=== PATIENT | male | born 1965 | race Caucasian/White ===

== ENCOUNTER → 2023-01-27 10:00 | Outpatient (BNVA) | payer MEDICAID, SELFPAY | PROVIDERS: Family Provider Nurse Practitioner Family; PCP Nurse Practitioner Family; Referring Provider Nurse Practitioner Family; Visit Provider Orthopaedic Surgery | DX: M48.061 Spinal stenosis, lumbar region without neurogenic claudication (principal); M47.814 Spondylosis without myelopathy or radiculopathy, thoracic region | CPT/HCPCS: 72070; 72110 ==

== ENCOUNTER 2023-02-24 11:01 | Outpatient (CLI) | payer MEDICAID, SELFPAY ==
--- NOTE | 2023-02-24 | ECG_ITS ---
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 Interpretive Statements NAME OF STUDY: TREADMILL STRESS TEST INDICATION: [bradycardia/exertional sob, ] EXERCISE DATA: The patient was exercised by Yohan protocol. Baseline heart rate was 72 beats per minute. Baseline blood pressure was 108/81 millimeters of mercury. Target heart rate was 140 beats per minute. Maximum heart rate achieved was 137 which was 97% of the target heart rate. Maximum blood pressure was 193/92 millimeters of mercury. Total exercise time was 7 minutes. Maximum METs achieved was 10.2 . The reason for ending the test was maximal effort was achieved. The patient complained of shortness of breath during the stress test, which then resolved at the end of the test. ELECTROCARDIOGRAM: BASELINE: Showed sinus rhythm, normal axis, no significant ST-T changes at the baseline noted. [] EXERCISE: At the peak exercise level, [] No significant ST-T changes suggestive of ischemia noted. [] RECOVERY: During the recovery period, heart rate dropped appropriately. No significant ST-T changes in the recovery suggestive of ischemia noted. [] CONCLUSION: 1. Exercise capacity was good. 2. Heart rate response was suboptimal 3. Blood pressure response was appropriate. 4. Symptoms not suggestive of ischemia. 5. Stress test did not show evidence of ischemia however patient did not reach target heart rate that decreases sensitivity of the study. Electronically Signed On 03-08-2023 15:40:25 CDT by Huseyin Richey M.D. [id number]
[2023-02-24 11:14] VITALS: BMI 30.2
[2023-02-24 11:41] VITALS: BP 126/86; PULSE 90
== END 2023-02-24 11:02 | disposition home or self-care (01) ==
LOC: CDL 11:05
PROVIDERS: PCP Nurse Practitioner Family; Visit Provider Nurse Practitioner Family
DX: R06.02 Shortness of breath (principal)
CPT/HCPCS: 93017

== ENCOUNTER 2023-04-17 13:27 | Emergency (ER) | payer MEDICAID, SELFPAY ==
[2023-04-17 13:57] VITALS: BP 141/90; PULSE 86; RESP 14; TEMP 37.2; O2SAT 95; BMI 29.5
--- NOTE | 2023-04-17 15:34 | ED_ITS ---
HPI - Extremity Problem General: Chief complaint: Extremity Problem,Nontraumatic Stated complaint: right leg pain Time Seen by Provider: 04/17/23 15:14 Source: patient Mode of arrival: ambulatory Limitations: no limitations History of Present Illness: Patient is a nice 58-year-old male who presents to ED today with a complaint of right hip pain. He states pain seemed to begin around the same time that he started a home physical therapy regimen recommended by Dr. Ervin for treatment of his chronic lower back pain. He states since then the pain has progressively worsened. He states when seated he has very little pain and is able to flex his hip without discomfort. He states his pain is mainly with ambulation and feels like something will catch in the joint itself. He admittedly walks with an ataxic gait because of this. He does feel like pain radiates into the thigh but not below the knee. Has not noticed any color or temperature changes to the extremity. No fevers. He denies numbness, tingling, loss of sensation. MD Complaint: joint pain Onset (ago): week(s) Pain Consistency: constant Location: right and lower extremity (hip) Radiation: distal Relieving factors: immobilization Exacerbating factors: weight bearing and walking Associated symptoms: Reports no associated symptoms; Deny fever(s) or rash Review of Systems Const: Denies: fever(s), chills, body aches, fatigue or malaise Musc: Reports: back pain (chronic) and joint pain (R hip); Denies: neck pain, extremity pain, extremity swelling, joint swelling, joint redness, joint warmth or limited range of motion Skin/Breast: Denies: rash Neuro: Reports: difficulty walking (secondary to R hip pain); Denies: numbness in extremities, weakness in extremities or sensory changes [facility] ED PFSH: Medical History Asthma No pertinent past medical history Surgical History No pertinent past surgical history Family History Father CAD (coronary artery disease), Onset Age: 60 Cancer, Onset Age: 60 prostate Diabetes Lung disease asthma Mother Diabetes Hypertension Lung disease Stroke Denies family history of Chronic kidney disease (CKD) Social History Smoking and tobacco status: former smoker Quit status (tobacco): has quit using tobacco Year quit tobacco: 2006 Alcohol intake: never Substance/Drug Use: never Adopted: No Caregiver/support person: No Lives independently: No Household members: spouse Marital status: service: No Current occupational status: employed Sexually active: Yes Do you think of yourself as: Straight/Heterosexual Current gender identity: Male Physical Exam Const: COMMON NORMALS: no acute distress, average body habitus, patient oriented x3, no limitations, healthy appearing, alert and well nourished Back/Pelvis: COMMON NORMALS: thoracic and lumbar spine normal to inspection, no thoracic nor lumbar tenderness and thoraco-lumbar ROM normal THORACIC SPINE/UPPER BACK: No thoracic spinal tenderness LUMBAR SPINE/LOWER BACK: No lumbar spinal tenderness, No paraspinal muscle tenderness, No paraspinal muscle spasm and Yes straight leg raise negative bilaterally PELVIS: No sciatic notch tenderness SACROILIAC JOINTS: Yes SI joints normal SACRUM: no tenderness COCCYX: no tenderness Extremity: COMMON NORMALS: normal to inspection, full ROM, capillary refill normal, no joint enlargement, no clubbing, cyanosis or edema, no calf tenderness and no pedal edema GENERAL: Yes normal exam except as noted RIGHT LOWER EXTREMITY: Yes hip joint Right hip: Yes palpation (TTP posteriolateral R hip), Yes ROM (normal), Yes neurovascular exam (normal) and Yes special tests Right hip special tests: Trendelenburg test: Positive Neuro: COMMON NORMALS: patient oriented x3, moves all extremities, no focal m otor deficits and no sensory deficits noted SENSORIUM/ORIENTATION: Yes alert Skin: COMMON NORMALS: no rashes or lesions noted GENERAL SKIN EXAM: no rashes or lesions noted Course Vital Signs: Vital signs: Vital Signs Temperature 98.9 F 04/17/23 13:57 Pulse Rate 86 04/17/23 13:57 Respiratory Rate 14 04/17/23 13:57 Blood Pressure 141/90 04/17/23 13:57 Pulse Oximetry 95 04/17/23 13:57 Oxygen Delivery Me thod Room Air 04/17/23 13:57 MDM - Extremity (Nontraumatic) Medical Decision Making Patient is a 58-year-old male here for right hip pain over the past 6 weeks. He felt like pain began following a home physical therapy regimen recommended for his chronic lower back pain. Patient's pain seems to be only present with walking/ambulation. He has full range of motion of the hip joint while seated/lying flat. XR personal interpretation is negative. Patient requesting follow-up with orthopedics which I think is appropriate. We will place him on anti-inflammatories, muscle relaxers, steroids to see if this gains him any relief. Discharge Plan Discharge Patient Disposition: Home Clinical Impression: Acute pain of right hip Condition: Stable Prescriptions: New methocarbamol 500 mg tablet 1,000 mg PO Q8H Qty: 30 0RF ibuprofen 800 mg tablet 800 mg PO Q8H PRN (Reason: pain) Qty: 20 0RF Medrol (Ector) 4 mg tablets,dose pack See Rx Instructions .ROUTE .COMPLEX Qty: 21 0RF Rx Instructions: orally per package directions No Action levalbuterol tartrate [Xopenex HFA] 45 mcg/actuation HFA aerosol inhaler 2 inh inhalation Q6H PRN (Reason: shortness of breath or wheezing) Qty: 15 11RF fluticasone propion-salmeterol [Advair Diskus] 100-50 mcg/dose blister with device 1 inh inhalation BID Qty: 60 11RF doxycycline hyclate 150 mg tablet 150 mg PO BID Discharge Orders: Discharge ED (Routine); Ordered 04/17/23 Ordered By: Patricia Guy Referrals: Dorian Saavge FNP [Primary Care Provider] - Patient Instructions: Hip Bursitis (ED), Hip Pain (ED) Coding Level of Care Code ED 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
--- NOTE | 2023-04-17 15:49 | XRR_ITS ---
PROCEDURE INFORMATION: Exam: XR Right Hip Exam date and time: 04/17/2023 4:09 PM Age: 58 years old Clinical indication: Patient HX: Right hip pain. He states pain seemed to begin around the same time that he started a home physical therapy regimen. Limping; Additional info: Pain/limp; One view pelvis too please TECHNIQUE: Imaging protocol: Radiologic exam of the right hip. Views: 1 view hip with pelvis when performed. Total images: 805 COMPARISON: CR XR lumbar spine min 4V [id number] 01/27/2023 10:02 AM FINDINGS: Bones/joints: No acute fracture nor subluxation. No osseous erosion nor periosteal reaction. Soft tissues: Unremarkable. Vasculature: Incidental venous phlebolith noted. XR/XR hip RT 2-3V wo/w pel* [id number] IMPRESSION: No acute osseous pathology.
[2023-04-17] MEDS: dexamethasone 10 mg/mL INJ 8 MG IM (17:03)
[2023-04-17] MEDS: ketorolac 60 mg/2 mL INJ IM (17:03)
--- NOTE | 2023-04-19 05:11 | DCPLANNER ---
Addendum entered by Mariana Mcgowan 04/27/23 10:12: Patient had a follow up appointment scheduled with ortho - patient did attend appointment. Original Note: corporate communications manager had message to schedule a follow up appointment for patient with ortho. corporate communications manager sent patients information to the front office staff at ortho. Patients information will be printed and reviewed. Clinic will call patient with appointment information.
== END 2023-04-17 17:08 | disposition home or self-care (01) ==
PROVIDERS: Emergency Provider Physician Assistant; PCP Nurse Practitioner Family
DX: M25.551 Pain in right hip (principal); Z87.891 Personal history of nicotine dependence
CPT/HCPCS: 73502; 96372; 99284; J1100; J1885

== ENCOUNTER 2023-04-23 18:18 | Inpatient (IN) | payer MEDICAID, SELFPAY ==
[2023-04-23] VITALS (23 sets, daily range): BP systolic 69–162; BP diastolic 45–113; PULSE 87–121; RESP 14–31; TEMP 36.6–37.4; O2SAT 75–98; BMI 29.5; BMI 34.1
--- NOTE | 2023-04-23 18:26 | XRR_ITS ---
PROCEDURE INFORMATION: Exam: XR Chest Exam date and time: 04/23/2023 6:30 PM Age: 58 years old Clinical indication: Cough TECHNIQUE: Imaging protocol: Radiologic exam of the chest. Views: 1 view. COMPARISON: CR XR thoracic spine 2V [id number] 01/27/2023 10:02 AM FINDINGS: Lungs: Subtle bibasilar opacities. Pleural spaces: Unremarkable. No pleural effusion. No pneumothorax. Heart/Mediastinum: Unremarkable. No cardiomegaly. Bones/joints: Unremarkable. XR/XR chest 1V portable [id number] IMPRESSION: Subtle bibasilar opacities suggestive of multifocal pneumonia.
--- NOTE | 2023-04-23 18:37 | W.ED.SYNCOPE ---
HPI - Syncope General: Chief Complaint: Syncope Stated Complaint: fever, chest congestion Time Seen by Provider: 04/23/23 18:27 Source: patient Mode of arrival: ambulatory Limitations: no limitations History of Present Illness: 58-year-old male states he been having cough congestion feels like he is got pain in his right lung. He states been having increasing shortness of breath and weakness he had a syncopal event at the waiting room he was hypotensive here. Denies any vomiting denies any headache. Denies any worsening proving factors. Associated symptoms: Reports fever(s); Deny abdominal pain, chest pain, headache(s) or nausea Review of Systems Const: Reports: fever(s), chills and body aches; Denies: change in appetite ENMT: Denies: throat pain or dental pain Card: Denies: chest pain Resp: Reports: dyspnea and productive cough GI: Denies: abdominal pain, nausea, vomiting or diarrhea : Denies: dysuria Musc: Denies: neck pain or back pain Skin/Breast: Denies: rash Neuro: Denies: headache(s) PFSH ED PFSH: Medical History Asthma No pertinent past medical history Surgical History No pertinent past surgical history Family History Father CAD (coronary artery disease), Onset Age: 60 Cancer, Onset Age: 60 prostate Diabetes Lung disease asthma Mother Diabetes Hypertension Lung disease Stroke Denies family history of Chronic kidney disease (CKD) Social History Smoking and tobacco status: former smoker Quit status (tobacco): has quit using tobacco Year quit tobacco: 2006 Alcohol intake: never Substance/Drug Use: never Adopted: No Caregiver/support person: No Lives independently: No Household members: spouse Marital status: service: No Current occupational status: employed Sexually active: Yes Do you think of yourself as: Straight/Heterosexual Current gender identity: Male Physical Exam Const: COMMON NORMALS: patient oriented x3 GENERAL APPEARANCE: ill appearing HENMT: COMMON NORMALS: normocephalic and atraumatic HEAD & SCALP: normocephalic and atraumatic Eye: COMMON NORMALS: Equal, round and reactive pupils present and EOMs intact bilaterally PUPIL: Yes Equal, round and reactive pupils present Neck/C-Spine: COMMON NORMALS: full ROM and supple Chest: COMMONS NORMALS: normal inspection of the chest and normal palpation of entire chest wall Resp: COMMON NORMALS: No retractions and No use of accessory muscles EFFORT & INSPECTION: Yes respiratory distress AUSCULTATION: rales Cardio: COMMON NORMALS: regular rhythm and No murmurs present (Cardio) RATE: tachycardic RHYTHM: regular rhythm GI: COMMON NORMALS: Normal to inspection, nondistended, normoactive bowel sounds present, Soft to palpation, non-tender and no masses PALPATION: Yes Soft to palpation Extremity: COMMON NORMALS: normal to inspection and full ROM Neuro: COMMON NORMALS: patient oriented x3, moves all extremities and no focal motor deficits Psych: COMMON NORMALS: mental status grossly normal, Normal thought process present and cooperative THOUGHT PROCESS: Normal thought process present Skin: COMMON NORMALS: no rashes or lesions noted and no wounds GENERAL SKIN EXAM: no rashes or lesions noted Procedures Central Line Placement Right IJ: Time Out Performed: Yes Patient Placed on Monitor/Pulse Ox: Yes MD Prep: mask, gown and gloves Central Line Prep: Chlorhexidine scrub Local Anesthetic: lidocaine 1% Amount of anesthesia used (mL): 3 Ultrasound Used for Placement: Yes Central Line Lumen Inserted: triple Post Procedure: sutured in place, good blood return and all ports aspirated, flushed, capped Post Procedure X-Ray: tip of catheter in good position and no pneumothorax seen Patient Tolerated Procedure: well Complications: none Intubation Time out performed: Yes sedative: Etomidate Mg Given: 2 paralytic: Succinylcholine Mg Given: 130 Laryngoscope: Agata ET Tube Size: 8 ET Tube Uncuffed: No Tube Secured Depth (cm): 26 Tube Secured Location: teeth Tube Placement Confirmation: visualized tube passing through cords, no breath sounds over epigastrium and confirmation by capnometry Patient Tolerated Procedure: well Course Vital Signs: Vital signs: Vital Signs Temperature 99.4 F 04/23/23 18:28 Pulse Rate 119 H 04/23/23 20:12 Respiratory Rate 18 04/23/23 21:45 Blood Pressure 78/56 04/23/23 18:28 Pulse Oximetry 96 04/23/23 21:45 Oxygen Delivery Me thod Nasal Cannula 04/23/23 20:03 Oxygen Flow Rate 2 04/23/23 20:03 Fraction of Inspir ed Oxygen 100 04/23/23 21:45 MDM - Syncope Medical Decision Making Patient presents here with pneumonia with sepsis. Patient when starting central line placement he did get more hypotensive unresponsive patient was on Levophed he is given push dose epinephrine was not really tolerating the BiPAP so was then intubated. After his intubation central line was placed he is currently on Levophed his blood pressure is now in the 130s. He has been given IV antibiotics and his sepsis fluid bolus. Spoke to the hospitalist and will admit at this time. Medical Records I reviewed the patient's medical records. Lab Data I reviewed the patient's lab results. 04/23/23 18:34 04/23/23 18:34 Radiology Impressions Chest X-Ray 04/23/23 19:36 IMPRESSION: More conspicuous bibasilar opacities/pneumonia. Laboratory Results WBC 8.2 10^3/uL (4.0-10.0) 04/23/23 18:34 RBC 5.04 10^6/uL (4.1-5.3) 04/23/23 18:34 Hgb 15.7 g/dL (11.7-16.6) 04/23/23 18:34 Hct 45.6 % (42.0-52.0) 04/23/23 18:34 MCV 90.5 fl (80-94) 04/23/23 18:34 MCH 31.2 pg (28.0-34.0) 04/23/23 18:34 MCHC 34.4 g/dL (30.0-36.0) 04/23/23 18:34 RDW 13.2 % (12.1-15.1) 04/23/23 18:34 Plt Count 273 10^3/cmm (130-400) 04/23/23 18:34 MPV 8.7 fL (7.4-10.4) 04/23/23 18:34 Neut % (Auto) 78.4 % 04/23/23 18:34 Lymph % (Auto) 15.6 % 04/23/23 18:34 [place] % (Auto) 5.4 % 04/23/23 18:34 Eos % (Auto) 0.0 % 04/23/23 18:34 Baso % (Auto) 0.2 % 04/23/23 18:34 Neut # (Auto) 6.45 10^3/uL (1.8-7.7) 04/23/23 18:34 Lymph # (Auto) 1.3 10^3/uL (0.8-4.8) 04/23/23 18:34 [place] # (Auto) 0.4 10^3/uL (0.2-0.9) 04/23/23 18:34 Eos # (Auto) 0.0 10^3/uL (0.0-0.8) 04/23/23 18:34 Baso # (Auto) 0.0 10^3/uL (0.0-0.1) 04/23/23 18:34 Nucleated RBC % (auto) 0 % 04/23/23 18: Nucleated RBCs # 0.0 /100WBC 04/23/23 18:34 PT 14.20 SECONDS (12.1-14.9) 04/23/23 18:34 INR 1.06 (0.8-1.2) 04/23/23 18:34 Sodium 139 mmol/L (136-145) 04/23/23 18:34 Potassium 4.3 mmol/L (3.5-5.1) 04/23/23 18:34 Chloride 98 mmol/L (98-107) 04/23/23 18:34 Carbon Dioxide 27 mmol/L (22-29) 04/23/23 18:34 Anion Gap 18.3 (5-19) 04/23/23 18:34 BUN 22 mg/dL (6-20) H 04/23/23 18:34 Creatinine 1.4 mg/dL (0.7-1.2) H 04/23/23 18:34 GFR Calculation 52.4 mL/min (90-130) L 04/23/23 18:34 Glucose 123 mg/dL (65-115) H 04/23/23 18:34 Calculated Osmolality 293 mOsm/kg (285-295) 04/23/23 18:34 Lactic Acid 3.9 mmol/L (0.5-2.2) H 04/23/23 18:48 Calcium 8.7 mg/dL (8.5-10.5) 04/23/23 18:34 Total Bilirubin 1.1 mg/dL (0.15-1.2) 04/23/23 18:34 AST 27 U/L (0-40) 04/23/23 18:34 ALT 62 U/L (0-41) H 04/23/23 18:34 Alkaline Phosphatase 65 U/L (40-130) 04/23/23 18:34 Troponin T Baseline 12 ng/L (0-15) 04/23/23 18:34 Troponin T 120 Minute 12.37 ng/L (0-15) 04/23/23 20:37 Delta Troponin T 0.37 ABS# (0-10) 04/23/23 20:37 NT-Pro-B Natriuret Pep 481 pg/mL (0-125) H 04/23/23 18:34 Total Protein 6.8 g/dL (6.6-8.7) 04/23/23 18:34 Albumin 4.0 g/dL (3.5-5.2) 04/23/23 18:34 Globulin 2.8 g/dL (1.3-4.6) 04/23/23 18:34 SARS-CoV-2 Ag (Rapid) negative (Negative) 04/23/23 18:37 EKG Data EKG 1: I personally reviewed and interpreted this EKG as follows: EKG interpretation date: 04/23/23 EKG interpretation time: 18:43 Interpretation: nsr hr [address] or t wave abnormalities qrs 91 qtc 360 Critical Care Time Critical Care Time: Critical Care Time: Yes Total Critical Care Time: 55 Attestation: The high probability of a clinically significant, sudden or life threatening deterioration of the patient's resp system(s) required my full and direct attention, intervention and personal management. The critical care time is as shown. This time is in addition to time spent performing any reported procedures but includes the following: [x] Data and vital sign review and interpretation [x] Patient assessment, examination and intervention [x] Documentation [x] Medication orders and management Discharge Plan Discharge Patient Disposition: Admitted As Inpatient Admit Provider: Haley Brooke Clinical Impression: Pneumonia, Sepsis, Acute respiratory failure with hypoxia Condition: Stable Coding Level of Care Code ED Employee Relations Specialist for Chg Yogesh
[2023-04-23] MEDS: sodium chloride 0.9% 1,000 ML 999 ML IV ×2 (18:41→18:44)
--- NOTE | 2023-04-23 18:43 | ECG_ITS ---
[facility] Test Date: 2023-04-23 Pat Name: Vic Lebron Department: Room: Gender: Male Rn Medical Surgical: : 1965 Requested By: Kwesi Kaur Order Number: [id number] Bullard MD: Betty Babb M.D. Measurements Intervals [place] Rate: 98 P: 59 IA: 124 QRS: 28 QRSD: 91 T: 24 QT: 305 QTc: 390 Interpretive Statements SINUS RHYTHM NONSPECIFIC T-WAVE ABNORMALITY No previous ECG available for comparison Electronically Signed On 04-23-2023 20:35:30 CDT by Betty Babb M.D. [id number]
[2023-04-23 18:44] LABS: Basophils % 0.2 %; Hematocrit 45.6 % (42.0-52.0); Hemoglobin 15.7 g/dL (11.7-16.6); Lymphocytes # 1.3 10^3/uL (0.8-4.8); Lymphocytes % 15.6 %; Mean Corpuscular HGB Conc 34.4 g/dL (30.0-36.0); Mean Corpuscular Hemoglobin 31.2 pg (28.0-34.0); Mean Corpuscular Volume 90.5 fl (80-94); Mean Platelet Volume 8.7 fL (7.4-10.4); Monocytes # 0.4 10^3/uL (0.2-0.9); Monocytes % 5.4 %; Neutrophils # 6.45 10^3/uL (1.8-7.7); Neutrophils % 78.4 %; Nucleated Red Blood Cells % 0 %; Platelet Count 273 10^3/cmm (130-400); Red Blood Count 5.04 10^6/uL (4.1-5.3); Red Cell Distribution Width 13.2 % (12.1-15.1); White Blood Count 8.2 10^3/uL (4.0-10.0)
[2023-04-23 19:17] LABS: INR 1.06 (0.8-1.2)
[2023-04-23 19:19] LABS: Alanine Aminotransferase 62 U/L (0-41); Alkaline Phosphatase 65 U/L (40-130); Anion Gap 18.3 (5-19); Aspartate Amino Transferase 27 U/L (0-40); Blood Urea Nitrogen 22 mg/dL (6-20); Calcium 8.7 mg/dL (8.5-10.5); Carbon Dioxide 27 mmol/L (22-29); Chloride 98 mmol/L (98-107); Globulin 2.8 g/dL (1.3-4.6); Glomerular Filtration Rate 52.4 mL/min (90-130); Glucose 123 mg/dL (65-115); NT Pro B Type Natriuretic Pept 481 pg/mL (0-125); Osmolality Calculated 293 mOsm/kg (285-295); Potassium 4.3 mmol/L (3.5-5.1); Sodium 139 mmol/L (136-145); Total Bilirubin 1.1 mg/dL (0.15-1.2); Total Protein 6.8 g/dL (6.6-8.7)
[2023-04-23 19:31] LABS: SARS Covid-2 Antigen negative (Negative)
[2023-04-23] MEDS: cefTRIAXone 1,000 MG in sodium chloride 0.9% (plus) 50 ML 100 MG IV (19:32)
[2023-04-23] MEDS: azithromycin 500 MG in sodium chloride 0.9% 250 ML 250 MG IV (19:33)
[2023-04-23] MEDS: acetaminophen 500 mg Tablet 1000 MG PO (19:33)
--- NOTE | 2023-04-23 19:36 | XRR_ITS ---
PROCEDURE INFORMATION: Exam: XR Chest Exam date and time: 04/23/2023 7:41 PM Age: 58 years old Clinical indication: Shortness of breath; Additional info: SOB TECHNIQUE: Imaging protocol: Radiologic exam of the chest. Views: 1 view. COMPARISON: CR (CHEST, ) 04/23/2023 6:30 PM FINDINGS: Lungs: More conspicuous bibasilar opacities. Pleural spaces: Unremarkable. No pleural effusion. No pneumothorax. Heart/Mediastinum: Unremarkable. No cardiomegaly. Bones/joints: Unremarkable. XR/XR chest 1V portable [id number] IMPRESSION: More conspicuous bibasilar opacities/pneumonia.
[2023-04-23 19:39] LABS: Slide Review Slide Review Perform
[2023-04-23] MEDS: dexamethasone 10 mg/mL INJ IVP (19:42)
[2023-04-23 19:48] LABS: Lactic Sepsis W/Reflex 3.9 mmol/L (0.5-2.2)
[2023-04-23 19:59] LABS: Troponin(5th) Baseline 12 ng/L (0-15)
[2023-04-23] MEDS: albuterol 2.5 mg/3 mL Neb INHALATION (20:01)
[2023-04-23] MEDS: ipratropium 0.5 mg/2.5 mL Neb INHALATION (20:01)
[2023-04-23 21:01] LABS: Reflex Lactate Order REFLEX LACTIC ORDERD
[2023-04-23 21:01] LABS: Troponin 5 2HR 12.37 ng/L (0-15)
[2023-04-23] MEDS: HYDROmorphone 1 mg/mL INJ 1 mL 0.5 MG IVP (21:05)
[2023-04-23 21:21] LABS: Troponin 5 2HR Delta 0.37 ABS# (0-10)
[2023-04-23] MEDS: ondansetron 2 mg/ML SDV 2 mL 4 MG IVP (21:28)
--- NOTE | 2023-04-23 21:37 | XRR_ITS ---
PROCEDURE INFORMATION: Exam: XR Chest Exam date and time: 04/23/2023 9:16 PM Age: 58 years old Clinical indication: Device placement; Ett placement (vent status); Patient HX: Check S/P et and central line placement TECHNIQUE: Imaging protocol: Radiologic exam of the chest. Views: 1 view. COMPARISON: CR (CHEST, ) 04/23/2023 7:41 PM FINDINGS: Tubes, catheters and devices: Interval placement of right central line which terminates at the distal SVC. Endotracheal tube terminates 2.8 cm above the gerry. Lungs: No significant interval change. Pleural spaces: Probable small volume left pleural effusion. Heart/Mediastinum: No cardiomegaly. Bones/joints: Visualized osseous structures are intact. XR/XR chest 1V portable [id number] IMPRESSION: Proper positioning of support apparatus.
[2023-04-23] MEDS: propofol 1,000 MG/100 ML INJ 5 MG (21:55)
[2023-04-23 22:02] LABS: Lactic Acid level (Lactate) 5.1 mmol/L (0.5-2.2)
--- NOTE | 2023-04-23 22:30 | ECG_ITS ---
[facility] Test Date: 2023-04-23 Pat Name: Vic Lebron Department: Room: [facility] Gender: Male Hall Manager: : 1965 Requested By: Kwesi Kaur Order Number: [id number] Aleah MD: Betty Babb M.D. Measurements Intervals [place] Rate: 102 P: 58 VA: 135 QRS: 43 QRSD: 81 T: 45 QT: 324 QTc: 423 Interpretive Statements SINUS TACHYCARDIA NONSPECIFIC T-WAVE ABNORMALITY ABNORMAL RHYTHM ECG Compared to ECG 04/23/2023 18:43:44 Sinus rhythm no longer present T-wave abnormality still present Electronically Signed On 04-24-2023 9:17:11 CDT by Betty Babb M.D. [id number]
--- NOTE | 2023-04-23 22:33 | XRR_ITS ---
PROCEDURE INFORMATION: Exam: XR Chest Exam date and time: 04/23/2023 10:35 PM Age: 58 years old Clinical indication: Device placement; Ng tube; Patient HX: Check S/P og placement TECHNIQUE: Imaging protocol: Radiologic exam of the chest. Views: 1 view. COMPARISON: CR XR chest 1V portable [id number] 04/23/2023 9:16 PM FINDINGS: Tubes, catheters and devices: Intubation with tip 3.2 cm above the gerry. Right IJ central line with tip over the distal SVC. Orogastric tube placement with tip in the distal stomach or proximal duodenum. Lungs: Stable consolidation in the left lung base. The right lung is clear. Pleural spaces: Stable small left pleural effusion. No pneumothorax. Heart/Mediastinum: Unremarkable. No cardiomegaly. Bones/joints: Unremarkable. XR/XR chest 1V portable [id number] IMPRESSION: 1. Gastric tube tip in the distal stomach or proximal duodenum. 2. Stable left base consolidation and pleural effusion.
--- NOTE | 2023-04-23 22:39 | PM.HP ---
Providers/Chief Complaint Admitting Physician: Haley Brooke MD Primary Care Provider: Dorian Savage Chief Complaint: fever, chest congestion History of Present Illness Vic Lebron is a 58 year old male with past medical history of childhood asthma, recent hip pain radiating down the leg presented to the hospital today for complaint of fever and cough. He came in with his . He has been having cough and congestion and complained of right sided chest pain. He stated that he was having increasing shortness of breath and weakness. While waiting in the waiting room patient had a syncopal episode and was noted to be severely hypotensive. Denied vomiting, headache or any provoking factors. As above information was obtained by ER doctor. I spoke to patient's at bedside who stated that about 6 weeks ago he was having hip pain every time he would bear weight on it and he would have electrical shooting pain going down his leg for which she saw Dr. Ervin. He was given pain medication and MRI of right hip was ordered which is scheduled for May 05. She stated that he has been having a fever for the last few days and has been having a worsening cough and today could not breathe. She states that he was also experiencing nausea and pain in his ribs every time he would take a deep breath. Recently he was prescribed Medrol Dosepak, methocarbamol, prednisone taper pack, ibuprofen on his ER visit on April 17, 2023 for hip pain. states that patient had childhood asthma and she been to him for 36 years. He has never been hospitalized for pneumonia but does get frequent pneumonia as an outpatient but takes oral antibiotics and usually is okay. Patient has not received a pneumonia vaccine COVID-vaccine or influenza vaccine. 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 He only sees his primary care doctor. He is pretty healthy and does not get asthma flareups either. ED course: Patient did have a syncopal episode in the waiting room. On arrival blood pressure 78/56, respirate 18, pulse 118, temperature 99.4, saturating 100% on 2 L nasal cannula. He was brought in and was given 3 L of normal saline bolus. Central line placement was attempted and during that team patient became hypotensive and unresponsive. He was given a Levophed push and epinephrine push and was immediately intubated. After intubation central line was placed. Levophed was started and blood pressure did improve to 130 systolic. He was given a dose of ceftriaxone azithromycin and sepsis fluid bolus. He was to be admitted to the ICU however shortly thereafter patient's blood pressure started dropping further and vasopressin was started and subsequently epinephrine was started. Initial labs WBC 8.2, hemoglobin 15.7, platelets 273, sodium 139, potassium 4.3, anion gap 18, creatinine 1.4, lactic acid initially 3.9, repeat lactic acid 5.9, baseline troponin 12, delta troponin 0.37, BNP 481, COVID-negative. EKG did not show any acute ST changes. CT chest abdomen pelvis has been ordered by the ER and I have added on a CT hip to rule out underlying abscess. Chest x-ray did show more conspicuous basilar opacity/pneumonia. Procalcitonin 44.45. Blood cultures, urine culture, sputum culture Gram stain has been ordered. Of note patient did recently have a stress test in January which was unremarkable. Medications/Allergies Home Medications Medication Instructions Recorded Confirmed Last Taken Type fluticasone 100 mcg-salmeterol 50 1 inh inhalation BID #60 ea 01/15/23 04/21/23 Unknown Rx mcg/dose blistr powdr for inhalation (Advair Diskus) levalbuterol tartrate 45 2 inh inhalation Q6H PRN shortness 01/15/23 04/21/23 Unknown Rx mcg/actuation aerosol inhaler of breath or wheezing #15 grams (Xopenex HFA) doxycycline hyclate 150 mg tablet 150 mg PO BID 02/12/23 04/21/23 Unknown History ibuprofen 800 mg tablet 800 mg PO Q8H PRN pain #20 tabs 04/17/23 04/21/23 Unknown Rx methocarbamol 500 mg tablet 1,000 mg PO Q8H #30 tabs 04/17/23 04/21/23 Unknown Rx methylprednisolone 4 mg tablets in See Rx Instructions PO .COMPLEX 04/17/23 04/21/23 Unknown Rx a dose pack (Medrol (Ector)) #21 ea prednisone 20 mg tablet 20 mg PO DAILY #15 tabs 04/21/23 04/21/23 Unknown Rx Allergies Allergy/AdvReac Type Severity Reaction Status Date / Time Penicillins Allergy Unknown Verified 04/23/23 18:32 PFSH Acute PFSH: Medical History Asthma No pertinent past medical history Surgical History No pertinent past surgical history Family History Father CAD (coronary artery disease), Onset Age: 60 Cancer, Onset Age: 60 prostate Diabetes Lung disease asthma Mother Diabetes Hypertension Lung disease Stroke Denies family history of Chronic kidney disease (CKD) Social History Smoking and tobacco status: former smoker Quit status (tobacco): has quit using tobacco Year quit tobacco: 2006 Alcohol intake: never Substance/Drug Use: never Adopted: No Caregiver/support person: No Lives independently: No Household members: spouse Marital status: service: No Current occupational status: employed Sexually active: Yes Do you think of yourself as: Straight/Heterosexual Current gender identity: Male Vitals/I&O/Wt Last Vital Signs Temp 99.4 F 04/23/23 18:28 Pulse 119 H 04/23/23 20:12 Resp 18 04/23/23 21:45 BP 78/56 04/23/23 18:28 Pulse Ox 96 04/23/23 21:45 O2 Del Method Nasal Cannula 04/23/23 20:03 O2 Flow Rate 2 04/23/23 20:03 FiO2 100 04/23/23 21:45 04/23/23 04/23/23 04/23/23 06:59 14:59 22:59 Intake Total 1000 / 1000 Balance 1000 / 1000 Weight last 48 hrs Weight 90.718 kg Physical Exam Narrative: General: Intubated, sedated HEENT: Normocephalic, atraumatic, ventilated patient Cardio: Tachycardic, normal S1-S2 Respiratory: Coarse rhonchi bilateral posterior lung smith GI: Abdomen soft, nontender,bowel sounds + Extremities: Pulses 2+, no edema, no cyanosis, no mottling noted. Skin: No apparent wounds noted on skin. Data 04/23/23 18:34 04/23/23 18:34 Micro: Microbiology 04/23/23 18:52 Blood Culture - Preliminary Blood SPECIMEN COLLECTED 04/23/23 18:48 Blood Culture - Preliminary Blood SPECIMEN COLLECTED A&P Assessment and plan (1) Pneumonia: (2) Sepsis: (3) Acute respiratory failure with hypoxia: (4) Asthma: (5) Chronic back pain: (6) Exertional dyspnea: (7) Septic shock: (8) Fever: (9) Lactic acid acidosis: (10) Acute kidney injury: Plan #Septic shock secondary to most likely pneumonia #MEGHNA/ATN due to prerenal cause and shock #Right hip pain #History of childhood asthma #Elevated lactic acid - Lactic acid 3.9 on admission and subsequently 5.9. Patient status post 3 L normal saline bolus. ? Continue normal saline 150 cc/h ? Continue Levophed, vasopressin, epinephrine ? Continue propofol fentanyl ? Check CBC CMP mag in a.m. ? Current ventilator settings 100% FiO2, 500, 18, 8 ? Check chest CT abdomen pelvis ? Check CT hip to rule out underlying abscess? Patient's states that he was having pain with weightbearing and had a fever recently as well. My suspicion for hip abscess is low at this point however will complete CT for completion ? Recheck lactic acid in a.m. ? Procalcitonin 44.45 ? Obtain sputum Gram stain culture from ET tube sample ? Check urine culture, blood cultures, respiratory viral panel, MRSA nares screen ? Check bacterial antigen Legionella and Streptococcus ? Patient did receive ceftriaxone azithromycin in ER. I will escalate antibiotics to vancomycin, meropenem at this time. Patient is allergic to penicillin however I do not have details as to what the allergy is. Add Levaquin IV for dual pseud coverage. - Consider pulmonology consult -Check cortisol level ? Place Robert catheter for accurate output. Monitor urine output. ? Check repeat CMP at 1 AM. Fill Code SCDS, Heparin subcu BID Patient is critically ill in the ICU requiring 3 vasopressors and full ventilatory support. He is on FiO2 100% saturating 94% at this time. CT chest abdomen pelvis complete shows dense aspiration versus pneumonia in the lower lobes and right upper lobe. Multiple filling defects in lower lobe bronchi could represent aspiration mucus or fluid, mild T7 compression fracture, moderate L1 minimal L5 compression fractures, nonobstructing renal calculi, mild nonspecific periportal edema this can be seen with volume overload and acute hepatitis. CT hip unremarkable. I have discussed the results with patient's in detail along with his current management plan. I have explained to her that patient is in critical condition. Prognosis is guarded at this time. Patient is was given ample time to ask questions and they were answered to her satisfaction. Attestations Medical Necessity Statement*: Critically ill in the ICU. Coding Level of Care Code G0427 (70 min) TH Encounter Time (min): 70 Patient seen via Telehealth in the acute care setting (hospital or ED location) by agreement and consent of patient or patient insurance representative. Telehealth technology used during the visit includes video and audio. This patient encounter is appropriate and reasonable under the circumstances given the patient?s particular presentation at this time. The patient has been advised of the potential risks and limitations of this mode of treatment (including but not limited to the absence of in-person examination at this time) and has agreed to be treated by an off-site physician for this visit. If deemed clinically necessary from this telehealth visit, or if condition or consent for telehealth visit changes, an in-person visit will be arranged. For this encounter, total time for the origination of telehealth care on this date is as shown. Diagnoses Pneumonia J18.9 Sepsis A41.9 Acute respiratory failure with hypoxia J96.01 Asthma J45.909 Chronic back pain M54.9; G89.29 Exertional dyspnea R06.09 Septic shock A41.9; R65.21 Fever R50.9 Lactic acid acidosis E87.20 Acute kidney injury N17.9
[2023-04-23] MEDS: EPINEPHrine 2.5 MG in sodium chloride 0.9% 250 ML 54.98 MG IV (22:50)
--- NOTE | 2023-04-23 22:53 | CTR_ITS ---
PROCEDURE INFORMATION: Exam: CT Right Lower Extremity Without Contrast, Hip Exam date and time: 04/23/2023 11:10 PM Age: 58 years old Clinical indication: Right; Patient HX: PT has been C/O RT hip pain per . ; Additional info: Hip pain, R/O abscess? TECHNIQUE: Imaging protocol: CT of the right lower extremity without contrast was performed. Exam focused on the hip. Radiation optimization: All CT scans at this facility use at least one of these dose optimization techniques: automated exposure control; mA and/or kV adjustment per patient size (includes targeted exams where dose is matched to clinical indication); or iterative reconstruction. REPORTING DATA: Count of CT and Cardiac NM exams in prior 12 months: This patient has received 0 known CTs and 0 known cardiac nuclear medicine studies in the 12 months prior to the current study. COMPARISON: CR XR hip RT 2-3V wo/w pel* [id number] 04/17/2023 4:09 PM RADIATION DOSE METRICS: Total DLP (mGy-cm): 291.26 FINDINGS: Bones/joints: Normal. No acute fracture or dislocation. Soft tissues: Normal. CT/CT hip RT wo con* [id number] IMPRESSION: Unremarkable CT.
--- NOTE | 2023-04-23 22:57 | CTR_ITS ---
PROCEDURE INFORMATION: Exam: CTA Chest With Contrast Exam date and time: 04/23/2023 11:14 PM Age: 58 years old Clinical indication: Abnormal findings; Abnormal lab test; Other: Lactic acid 5.1; Cough and fever and shortness of breath; Patient HX: Patient arrived to er with cough, congestion, and fever. Patient then became acutely hypoxic and hypotensive leading to intubation. Lactic acid of 5.1. Og, central line, and serra in place. ; Additional info: Shortness of breath/ sepsis TECHNIQUE: Imaging protocol: Computed tomographic angiography of the chest with contrast. Exam focused on the arteries. 3D rendering (Not supervised by radiologist): MIP and/or 3D reconstructed images were created by the technologist. Radiation optimization: All CT scans at this facility use at least one of these dose optimization techniques: automated exposure control; mA and/or kV adjustment per patient size (includes targeted exams where dose is matched to clinical indication); or iterative reconstruction. Contrast material: OMNI 350; Contrast volume: 100 ml; Contrast route: INTRAVENOUS (IV); REPORTING DATA: Count of CT and Cardiac NM exams in prior 12 months: This patient has received 0 known CTs and 0 known cardiac nuclear medicine studies in the 12 months prior to the current study. COMPARISON: CR (CHEST, ) 04/23/2023 10:35 PM RADIATION DOSE METRICS: Total DLP (mGy-cm): 1349.71 FINDINGS: Tubes, catheters and devices: Intubation with tip in the distal thoracic trachea. Pulmonary arteries: Normal. No pulmonary emboli. Aorta: Unremarkable. No aortic aneurysm. No aortic dissection. Lungs: Dense consolidation in the posterior right upper lobe and right lower lobe. Atelectasis in the dependent left upper lobe. Dense consolidation involving the majority of the left lower lobe. Multiple calcified granulomas in the right lower lobe. Multiple filling defects in the bilateral lower lobe bronchi. Pleural spaces: Unremarkable. No pneumothorax. No pleural effusion. Heart: Unremarkable. No cardiomegaly. No pericardial effusion. Lymph nodes: Prominent mediastinal and hilar lymph nodes are most likely reactive. Bones/joints: Mild thoracic curvature. Mild T7 compression fracture. Mild degenerative changes. Soft tissues: Unremarkable. PROCEDURE INFORMATION: Exam: CT Abdomen And Pelvis With Contrast Exam date and time: 04/23/2023 11:14 PM Age: 58 years old Clinical indication: Abnormal findings; Abnormal lab test; Other: Lactic acid 5.1; Cough and fever and shortness of breath; Patient HX: Patient arrived to er with cough, congestion, and fever. Patient then became acutely hypoxic and hypotensive leading to intubation. Lactic acid of 5.1. Og, central line, and serra in place. ; Additional info: Shortness of breath/ sepsis TECHNIQUE: Imaging protocol: Computed tomography of the abdomen and pelvis with contrast. Radiation optimization: All CT scans at this facility use at least one of these dose optimization techniques: automated exposure control; mA and/or kV adjustment per patient size (includes targeted exams where dose is matched to clinical indication); or iterative reconstruction. Contrast material: OMNI 350; Contrast volume: 100 ml; Contrast route: INTRAVENOUS (IV); REPORTING DATA: Count of CT and Cardiac NM exams in prior 12 months: This patient has received 0 known CTs and 0 known cardiac nuclear medicine studies in the 12 months prior to the current study. COMPARISON: CR XR hip RT 2-3V wo/w pel* [id number] 04/17/2023 4:09 PM RADIATION DOSE METRICS: Total DLP (mGy-cm): 1349.71 FINDINGS: Tubes, catheters and devices: Gastric tube placement with tip in the 1st portion of the duodenum. Liver: Mild periportal edema. No suspicious nodule. Gallbladder and bile ducts: Mild pericholecystic fluid. No visible gallstones. The bile ducts are normal. Pancreas: Normal. No ductal dilation. Spleen: Normal. No splenomegaly. Adrenal glands: Normal. No mass. Kidneys and ureters: Multiple small nonobstructing calculi in the left kidney, measuring up to 3 mm. Multiple hypodense lesions in the left kidney are too small to characterize but are most likely cysts. No follow-up imaging recommended. 1 mm right renal calculus. No hydronephrosis. Stomach and bowel: Unremarkable. No obstruction. No mucosal thickening. Appendix: The appendix is visualized and is normal. Intraperitoneal space: Unremarkable. No free air. No significant fluid collection. Vasculature: Unremarkable. No abdominal aortic aneurysm. Lymph nodes: Unremarkable. No enlarged lymph nodes. Urinary bladder: Serra catheter in a decompressed urinary bladder. Reproductive: Unremarkable as visualized. Bones/joints: Mild leftward lumbar curvature. Moderate L1 and minimal L5 compression fractures. Soft tissues: Unremarkable. CT/CT angio chest w abd pel w con IMPRESSION: 1. Dense aspiration versus pneumonia in the lower lobes and right upper lobe. 2. Multiple filling defects in the lower lobe bronchi could represent aspiration, mucus, or fluid. 3. Mild T7 compression fracture. IMPRESSION: 1. No acute findings. 2. Nonobstructing renal calculi. 3. Mild nonspecific periportal edema. This can be seen with volume overload and acute hepatitis. 4. Mild pericholecystic fluid with no visible gallstones. 5. Moderate L1 and minimal L5 compression fractures. COMMENTS: Consistent with the [employer]'s Incidental Findings Committee white paper (J Am Stephani Radiol 2018): Any incidental renal lesion less than 1 cm or classified as too small to characterize, or any incidental cystic renal lesion characterized as simple-appearing, is likely benign. No follow-up imaging is recommended for these lesions per consensus recommendations based on imaging criteria.
[2023-04-23 23:16] LABS: Procalcitonin 44.45 ng/mL (0-0.5)
[2023-04-23] MEDS: sodium chloride 0.9% 500 ML 999 ML IV (23:16)
[2023-04-23] MEDS: iohexol 350 mg/mL 500 mL Btl (per mL) IV (23:27)
--- NOTE | 2023-04-23 23:49 | PC.NURSE ---
WHILE ATTEMPTING TO PLACE CENTRAL LINE, PT BECAME UNRESPONSIVE AND OXYGEN SATURATION DEPLETED TO THE 70S. ETOMIDATE 20MG GIVEN AT 2131 SUCCINYLCHOLINE GIVEN AT 2132 PT INUTBATED AT APPROX 2134. ET TUBE 25 @ LIP.
[2023-04-24] VITALS (107 sets, daily range): BP systolic 88–219; BP diastolic 56–139; PULSE 88–118; RESP 18–26; TEMP 36.6–38.6; O2SAT 91–100; BMI 34.8
[2023-04-24 00:33] LABS: Basophils % 0.4 %; Eosinophils % 0.2 %; Hematocrit 42.5 % (42.0-52.0); Hemoglobin 13.9 g/dL (11.7-16.6); Lymphocytes % 28.3 %; Mean Corpuscular HGB Conc 32.7 g/dL (30.0-36.0); Mean Corpuscular Hemoglobin 31.1 pg (28.0-34.0); Mean Corpuscular Volume 95.1 fl (80-94); Mean Platelet Volume 9.2 fL (7.4-10.4); Monocytes # 0.8 10^3/uL (0.2-0.9); Monocytes % 7.2 %; Neutrophils # 6.84 10^3/uL (1.8-7.7); Neutrophils % 63.7 %; Nucleated Red Blood Cells % 0 %; Platelet Count 286 10^3/cmm (130-400); Red Blood Count 4.47 10^6/uL (4.1-5.3); Red Cell Distribution Width 13.7 % (12.1-15.1); White Blood Count 10.7 10^3/uL (4.0-10.0)
[2023-04-24] MEDS: heparin 5,000 unit/mL INJ 1 mL 5000 UNIT SUBCUT (00:53)
[2023-04-24] MEDS: meropenem 1,000 MG in sodium chloride 0.9% (plus) 50 ML 100 MG IV ×4 (00:53→21:10)
[2023-04-24] MEDS: levofloxacin-dextrose 5 % 750 MG/150 ML PREMIX 100 MG IV ×2 (00:54→23:03)
[2023-04-24] MEDS: vancomycin 1,500 MG/300 ML PIGGYBACK 200 MG IV ×2 (00:55→17:06)
[2023-04-24] MEDS: sodium chloride 0.9% 1,000 ML 150 ML IV (00:55)
[2023-04-24 01:00] LABS: Slide Review Slide Review Perform
[2023-04-24 01:07] LABS: Add Urine Microscopic? YES; Bacteria Urine 1+ /hpf; Bilirubin Urine Neg (Negative); Blood Urine 3+ (Negative); Glucose Urine UA Norm (Normal); Ketones Urine Negative (Negative); Leukocyte Esterase Urine Negative (Negative); Nitrate Urine Negative (Negative); Protein Urine 2+ (Negative); Urine Appearance Clear (CLEAR); Urine Color Yellow (Yellow); Urobilinogen Urine Neg (Negative); pH Urine 5 (5-7)
[2023-04-24 01:08] LABS: Add Urine Culture? No
[2023-04-24] MEDS: EPINEPHrine 2.5 MG in sodium chloride 0.9% 250 ML 54.98 MG IV (01:12)
[2023-04-24 01:15] LABS: Alanine Aminotransferase 63 U/L (0-41); Alkaline Phosphatase 53 U/L (40-130); Anion Gap 18.8 (5-19); Aspartate Amino Transferase 40 U/L (0-40); Blood Urea Nitrogen 22 mg/dL (6-20); Calcium 7.3 mg/dL (8.5-10.5); Carbon Dioxide 20 mmol/L (22-29); Chloride 102 mmol/L (98-107); Globulin 2.3 g/dL (1.3-4.6); Glomerular Filtration Rate 34.7 mL/min (90-130); Glucose 160 mg/dL (65-115); Osmolality Calculated 291 mOsm/kg (285-295); Potassium 3.8 mmol/L (3.5-5.1); Sodium 137 mmol/L (136-145); Total Bilirubin 2.1 mg/dL (0.15-1.2); Total Protein 5.3 g/dL (6.6-8.7)
--- NOTE | 2023-04-24 01:41 | ECG_ITS ---
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 Measurements Intervals [place] [facility] Rate: 97 P: 61 MA: 160 QRS: 40 QRSD: 86 T: 40 QT: 339 QTc: 431 Interpretive Statements SINUS RHYTHM LOW QRS VOLTAGE IN PRECORDIAL LEADS [QRS DEFLECTION < 1.0 mV IN CHEST LEADS] Compared to ECG 04/23/2023 22:30:17 Low QRS voltage now present Sinus tachycardia no longer present T-wave abnormality no longer present Electronically Signed On 04-24-2023 9:17:04 CDT by Betty Babb M.D. [id number]
[2023-04-24 02:02] LABS: Troponin 5 6HR 32.34 ng/L (0-15)
[2023-04-24 02:06] LABS: Troponin 5 6HR Delta 20.34 ng/L (0-12)
[2023-04-24] MEDS: EPINEPHrine 2.5 MG in sodium chloride 0.9% 250 ML 109.95 MG IV (02:56)
[2023-04-24 04:47] LABS: Adenovirus Not Detected (NOT DETECT); Chlamydia Pneumoniae Not Detected (NOT DETECT); Coronavirus 229E,HKU1,NL63,OC4 Not Detected (NOT DETECT); Human Metapneumovirus Not Detected (NOT DETECT); Human Rhinovirus/Enterovirus Not Detected (NOT DETECT); Influenza A Not Detected (NOT DETECT); Influenza A H1 Not Detected (NOT DETECT); Influenza A H1-2009 Not Detected (NOT DETECT); Influenza A H3 Not Detected (NOT DETECT); Influenza B Detected (NOT DETECT); Mycoplasma Pneumoniae Not Detected (NOT DETECT); Parainfluenza Virus Type 1 Not Detected (NOT DETECT); Parainfluenza Virus Type 2 Not Detected (NOT DETECT); Parainfluenza Virus Type 3 Not Detected (NOT DETECT); Parainfluenza Virus Type 4 Not Detected (NOT DETECT); Respiratory Syncytial Virus A Not Detected (NOT DETECT); Respiratory Syncytial Virus B Not Detected (NOT DETECT); SARS-COV-2 Not Detected (NOT DETECT)
[2023-04-24 05:14] LABS: Base Excess VBG -12.8 mmol/L (-3.0-3.0); Blood Gas Operator Identificat JB; Blood Gas Sample Site Brachial, left; Blood Gas Sample Type Venous; HCO3 VBG 17.5 mmol/L (24-28); Oxygen Device VENT; PCO2 VBG 56.9 mmHg (41-51); PO2 VBG 31.8 mmHg (25-40)
[2023-04-24 05:32] LABS: INR 1.39 (0.8-1.2)
[2023-04-24 05:38] LABS: Alanine Aminotransferase 82 U/L (0-41); Albumin Level 2.8 g/dL (3.5-5.2); Alkaline Phosphatase 49 U/L (40-130); Anion Gap 23.2 (5-19); Aspartate Amino Transferase 55 U/L (0-40); Blood Urea Nitrogen 23 mg/dL (6-20); Calcium 7.1 mg/dL (8.5-10.5); Carbon Dioxide 15 mmol/L (22-29); Chloride 103 mmol/L (98-107); Globulin 2.5 g/dL (1.3-4.6); Glomerular Filtration Rate 39.2 mL/min (90-130); Glucose 258 mg/dL (65-115); Magnesium 1.4 mg/dL (1.7-2.3); Osmolality Calculated 295 mOsm/kg (285-295); Potassium 5.2 mmol/L (3.5-5.1); Sodium 136 mmol/L (136-145); Total Bilirubin 2.2 mg/dL (0.15-1.2); Total Protein 5.3 g/dL (6.6-8.7)
[2023-04-24] MEDS: EPINEPHrine 2.5 MG in sodium chloride 0.9% 250 ML 137.44 MG IV ×2 (05:42→07:47)
[2023-04-24 05:54] LABS: ABG PCO2 41.1 mmHg (35-45); Alveolar-Arterial Oxygen Gradi 60.9 mmHg (5-10); Arterial Blood Gas Hematocrit 46.5 % (42-52); Base Excess ABG -12.4 mmol/L (-2.0-2.0); Blood Gas Allen Test Pos; Blood Gas Operator Identificat JB; Blood Gas Sample Site Radial, left; Blood Gas Sample Type Arterial; Carboxyhemoglobin 0.8 %THgb (0.4-20.1); HCO3 ABG 15.4 mmol/L (22-26); HGB O2 Sat 97.6 % (95-100); Methemoglobin 0.6 % (0.4-1.5); Oxygen Device VENT; Potassium Level - ABG 5.3 mmol/L (3.5-5.0); Total Hemoglobin 15.2 g/dL (14-18)
[2023-04-24 05:55] LABS: ABG PH Result 7.18 (7.35-7.45)
[2023-04-24] MEDS: sodium bicarbonate 150 MEQ in dextrose 5% 1,000 ML 100 MEQ IV (06:17)
[2023-04-24] MEDS: sodium bicarbonate 1 mEq/mL SDV 50mL 50 MEQ IVP ×2 (06:17→11:21)
[2023-04-24 07:26] LABS: Hematocrit 42.7 % (42.0-52.0); Hemoglobin 13.9 g/dL (11.7-16.6); Mean Corpuscular HGB Conc 32.6 g/dL (30.0-36.0); Mean Corpuscular Hemoglobin 31.3 pg (28.0-34.0); Mean Corpuscular Volume 96.2 fl (80-94); Mean Platelet Volume 9.4 fL (7.4-10.4); Platelet Count 286 10^3/cmm (130-400); Red Blood Count 4.44 10^6/uL (4.1-5.3); Red Cell Distribution Width 13.9 % (12.1-15.1)
--- NOTE | 2023-04-24 07:31 | US_ITS ---
WS: [id number] RIGHT UPPER QUADRANT ULTRASOUND HISTORY: Transaminitis COMPARISON: CT 04/23/2023 Liver: 17.0 cm in length. Top normal size liver. Mild coarsened echotexture throughout the liver from hepatic steatosis. Portal Vein: Normal hepatopetal flow with monophasic waveform. Gallbladder: Mildly contracted gallbladder. Diffuse wall thickening with edema. Wall thickening measu res up to 1.4 cm. There is a stone at the neck of the gallbladder measuring 1.4 cm. CBD: 0.4 cm Pancreas: Limited visualization. No abnormality seen. Right kidney: 11.8 cm in length. Normal size and echogenicity. No hydronephrosis or mass. Aorta and IVC: Unremarkable abdominal aorta and IVC. No ascites. US/US abdomen limited [id number] IMPRESSION: 1. Diffusely thickened gallbladder wall. Gallbladder is mildly contracted with stones. No adjacent inflammation was noted on a recent CT. Consider acute chol ecystitis. Other etiologies such as gallbladder wall thickening related to hepa tocellular dysfunction. 2. No bile duct dilatation. 3. Mild hepatic steatosis.
[2023-04-24 07:36] LABS: Partial Thromboplastin Time 29.7 SECONDS (23.9-36.7)
[2023-04-24] MEDS: midazolam 1 mg/mL INJ 2 mL 2 MG IVP (07:46)
[2023-04-24] MEDS: hydrocortisone 100 mg/2 mL SDV IVP ×2 (08:03→18:32)
[2023-04-24] MEDS: pantoprazole 40 mg SDV IVP ×3 (08:07→23:03)
--- NOTE | 2023-04-24 08:09 | ANES.PROC ---
Anesthesia Procedures Procedure/Date: 04/24/23 Arterial Line: Time Out Performed: Yes Consent: requested by attending/covering physician Size (Gauge): 20 Technique Used: guide wire technique Post-Procedure: dry sterile dressing placed Patient Tolerated Procedure: well Complications: none Site: left and radial Additional Comments: Attempted right radial without success.
[2023-04-24] MEDS: propofol 1,000 MG/100 ML INJ 11.52 MG IV (08:13)
[2023-04-24] MEDS: magnesium sulfate premix 2 GM/50 ML PIGGYBACK IV (08:14)
[2023-04-24] MEDS: albumin 25 G/100 ML BAG 60 G IV ×3 (08:21→23:02)
[2023-04-24 08:23] LABS: Glucose Point of Care 262 mg/dL (70-110)
[2023-04-24 08:25] LABS: Slide Review Slide Review Perform
[2023-04-24 08:26] LABS: Absolute Neutrophil 11.6 10^3/cmm (1.4-6.5); Absolute Segmented Neutrophil 4.6 10/cmm (1.6-7.1); Eosinophils 0 %; Lymphocytes 3 %; Monocytes Absolute 0.4 10^3/cmm (0.1-0.6); Platelet Estimate Normal (Normal); Segmented Neutrophils 33 %; Total Cells Counted 100 (0-100)
--- NOTE | 2023-04-24 08:32 | PC.PHAR ---
pts verified pts medications-pts states the pt stop taking the medrol dosepak on thursday04/20/23 states started taking prednisone -pts states the pt was taking methocarbamol 1000mg s8c-pwo states the pt was still using the advair diskus ext med history shows last filled 01/15/23 30d/s-pts states the pt uses albuterol 0.083% and xopenex 1.25/3ml for the nebulizer prn-notes are made in the pharmacy comment
[2023-04-24] MEDS: ipratropium-albuterol 3 mL Neb INHALATION ×4 (08:34→20:15)
[2023-04-24] MEDS: enoxaparin 100 mg/mL Syringe SUBCUT ×2 (08:35→20:09)
[2023-04-24 08:37] LABS: Erythrocyte Sedimentation Rate 5 mm/hr (0-10)
[2023-04-24] MEDS: doxycycline 100 MG in sodium chloride 0.9% (plus) 100 ML IV ×2 (08:41→20:08)
[2023-04-24 08:49] LABS: Estmated Average Glucose 108; Hemoglobin A1C 5.4 % (4.0-6.0)
[2023-04-24 09:00] LABS: Amylase 32 U/L (28-100); C Reactive Protein 204.5 mg/L (0.0-4.9); Chol HDL Ratio 2.82 mg/dL (1.0-5.00); Cholesterol 110 mg/dL (0-200); Cortisol Random 8.62 ug/dL (2.47-19.5); Free T4 Free Thyroxine 1.01 ng/dL (0.82-1.77); HDL Cholesterol 39 mg/dL (60-100); LDL Cholesterol Calculated 18 mg/dL (50-129); LDL HDL Ratio 0.46 RATIO (0.00-3.22); Lactate Dehydrogenase 348 U/L (135-225); Lipase 16 U/L (13-60); T3 Free 1.2 PG/ML (2.0-4.4); Thyroid Stimulating Hormone 0.44 uIU/mL (0.27-4.20); Total Bilirubin 1.9 mg/dL (0.15-1.2); Triglycerides 266 mg/dL (0-150)
[2023-04-24 09:03] LABS: Ketone (Acetest) Serum Negative (Negative)
[2023-04-24 09:06] LABS: Fibrinogen 429 mg/dL (174-498); INR 1.44 (0.8-1.2); Partial Thromboplastin Time 29.9 SECONDS (23.9-36.7)
[2023-04-24 09:10] LABS: D Dimer 1.44 ug/mIFEU (0-0.59)
[2023-04-24 09:11] LABS: Ammonia 63 umol/L (16-60)
[2023-04-24 09:13] LABS: Gamma Glutamyl Transferase 88 U/L (8-61)
[2023-04-24 09:16] LABS: Lactic Sepsis W/Reflex 5.3 mmol/L (0.5-2.2)
--- NOTE | 2023-04-24 09:48 | XR_ITS ---
WS: [id number] KUB, AP portable supine, 04/24/2023 Clinical Data: lactic acidosois Comparison: None. Findings: No abnormal intraabdominal masses or calcifications are seen. There is no dilatated small bowel or ev idence of obstruction. There is a moderate amount of bowel gas probably in the small bowel and colon. There are monitor lead s on the abdominal wall. The nasogastric tube ends in the distal stomach, perhaps in the pylorus. The patient's breathing obscures moderate detail. XR/XR KUB portable [id number] Impression: Moderate generalized ileus.
[2023-04-24] MEDS: EPINEPHrine 5 MG in sodium chloride 0.9% 500 ML 82.46 MG IV (09:55)
--- NOTE | 2023-04-24 10:16 | US_ITS ---
WS: [id number] Bilateral renal ultrasound, 04/24/2023 Clinical Data: kidney stone, hydronephrosis Comparison: Gallbladder and right upper quadrant ultrasound, 04/24/2023 Findings: The right kidney measures 13.6 cm x 6.5 cm x 5.3 cm and the left kidney is 11.0 cm x 5.3 cm x 5.5 cm. There are no cysts, masses or hydronephrosis. The renal cortical margin is normal. No renal calculi are seen. The abdominal aorta and inferior vena cava show no vascular abnormalities. The bladder was scanned and was not remarkable. There is a Robert catheter in the bladder. US/US renal BI* [id number] Impression: Negative bilateral renal ultrasound.
[2023-04-24 10:33] LABS: Reflex Lactate Order REFLEX LACTIC ORDERD
[2023-04-24 10:35] LABS: ABG PCO2 36.9 mmHg (35-45); ABG PH Result 7.26 (7.35-7.45); Arterial Blood Gas Hematocrit 42.2 % (42-52); Base Excess ABG -9.8 mmol/L (-2.0-2.0); Blood Gas Operator Identificat CAK; Blood Gas Sample Site ARTLINE; Blood Gas Sample Type Arterial; HCO3 ABG 16.5 mmol/L (22-26); Oxygen Device VENT
[2023-04-24 10:50] LABS: Basophils # 0.1 10^3/uL (0.0-0.1); Basophils % 0.8 %; Hematocrit 44.2 % (42.0-52.0); Hemoglobin 14.1 g/dL (11.7-16.6); Lymphocytes # 1.1 10^3/uL (0.8-4.8); Lymphocytes % 7.1 %; Mean Corpuscular HGB Conc 31.9 g/dL (30.0-36.0); Mean Corpuscular Hemoglobin 30.9 pg (28.0-34.0); Mean Corpuscular Volume 96.9 fl (80-94); Mean Platelet Volume 9.3 fL (7.4-10.4); Monocytes # 0.6 10^3/uL (0.2-0.9); Monocytes % 3.7 %; Neutrophils % 88.1 %; Nucleated Red Blood Cells % 0 %; Platelet Count 291 10^3/cmm (130-400); Red Blood Count 4.56 10^6/uL (4.1-5.3); White Blood Count 15.6 10^3/uL (4.0-10.0)
[2023-04-24 11:17] LABS: Glucose Point of Care 302 mg/dL (70-110)
[2023-04-24] MEDS: norepinephrine 8 MG in dextrose 5 % 500 ML 76.2 MG IV (11:20)
[2023-04-24] MEDS: insulin lispro 100 unit/1 mL SUBCUT ×2 (11:24→17:20)
[2023-04-24 11:42] LABS: Slide Review Slide Review Perform
[2023-04-24 11:53] LABS: Lactic Acid level (Lactate) 4.4 mmol/L (0.5-2.2)
[2023-04-24 11:53] LABS: HIV 1 & 2 Antibody Non-Reactive (Non-Reactiv); HIV 1 & 2 Antigen Non-Reactive (Non-Reactiv)
--- NOTE | 2023-04-24 11:58 | PM.PN ---
Subjective Subjective: - Patient was seen multiple times throughout the morning, with specialists at bedside, and in addition to family meeting -Patient was seen early in the morning, his maps were around 65 he was on 3 pressors vasopressin, Levophed, epinephrine -Sedated with propofol, fentanyl -He would awaken, moves both arms, open both eyes, in order to place art line, was given 2 mg of Versed, -Urine output 500 cc -Afebrile -Telemetry monitoring showing normal sinus rhythm -Consulted Dr. Ramsay for arterial line placement, Dr. Ramsay agreeable to place arterial line, which was successfully placed -I had an extensive meeting with patient's -Patient's tells me that he has been feeling well for the last few days, he has been feeling nauseous, potentially having abdominal pain, he does not have any cardiovascular history, no history of smoking, no history of lung disease no history of strokes no history of diabetes, no reported bloody black stools, according to her he has been more sleepy for the last few days, no drug use, -Before coming to the hospital, she tells me that he vomited to twice, and on their way to the emergency room, he vomited a couple more times -In emergency room he vomited, and then he went downhill from there she tells me -He has never had any abdominal surgery, no gallbladder issues, potentially intermittent abdominal pain but she is unsure -He does take ibuprofen, does take Soma, recently has been complaining of right hip pain that he has been having, pain in his right side, he does have a history of kidney stones -I discussed with patient's that patient is critically ill, prognosis is guarded, he has multiorgan failure, to me it seems like aspiration pneumonia, aspiration of GI content from something going on in the belly, either AP ischemic bowel, bowel cholelithiasis, possibly acute ascending cholangitis, his EF is about 35% preliminary on the echo, await wait for official read, he is in renal failure with creatinine of 1.9, respiratory failure on 100% oxygen, on 3 pressors, he is quite critically ill, severely acidotic on bicarb, has elevated lactic acid -However we will see how he does over the next few hours, I would recommend for him to have a pulmonary evaluation including bronchoscopy, as on CT scan he has bronchial filling defects in my opinion are likely from gastric aspirate and gastric contents, in addition he needs to have GI evaluation potentially an ERCP -She wants patient to be to be possibly transferred to [facility] if possible if he is stable enough -Discussed risks and benefits of transfer including morbidity mortality transfer she voiced understanding, all questions answered, agreed to proceed -However he is too critically ill to be transferred now, due to high risk of morbidity and mortality in transfer, will see if we can get him into more of a stable spot -Given how critically ill was patient, I am worried to follow-up possible ischemic bowel or bowel with given his persistently elevated lactic acid, and with his elevated troponins, and his decreased ejection fraction I placed him on therapeutic Lovenox -He is abdomen soft, slightly distended, hypoactive bowel sounds he is is tender in the right upper quadrant -I ordered a stat right upper quadrant ultrasound which showed to use it for gallbladder wall, possible acute cholecystitis with stones, with patient's elevated bili, elevated LFTs although alk phos is normal, elevated GGT and was worried about possibly a stone being obstructed in the biliary tract, although there was indeed no bile duct dilatation. In addition given his elevated lactic acids I was worried about possibly bowel or ischemic bowel, however abdomen soft, nondistended, hypoactive bowel sounds no guarding, no rebound, no rigidity, no A-fib CT scan had no significant radiographic evidence, -Nonetheless I consulted general surgery, had a meeting with general surgery and with family, general surgery feels that likelihood of ischemic bowel is fairly unlikely, there is concern for possibly acute ascending cholangitis, recommended MRCP when patient is more stable and ERCP and GI evaluation -Spoke to nursing staff, spoke to family at bedside -Patient was reexamined, he is down to 75% FiO2, he is almost off epinephrine drip, still on high doses of vasopressin, Levophed, has good urine output, maps are around 65, pH on ABG is 7.25 which is improving, he is influenza B is positive but I think that him having influenza is fairly unlikely given his kidney function I would hold off on giving him Tamiflu and risk of toxicity, given albumin, magnesium, given hydrocortisone, lactic acid is persistently elevated at 5.3 -I had an extensive family meeting with patient's , brothers and sisters in the waiting room -I discussed with all family numbers the chain of events I think likely happen -I think that likely something was going on in his abdomen possibly acute cholecystitis with developing acute ascending cholangitis or that at some point the stone must of passed as a CT scan does not show any radiographic significant biliary duct dilatation. My other thought is he could have bowel, or ischemic bowel although unlikely as his abdomen is soft, nondistended he does have decreased bowel sounds, no significant radiographic evidence of this, but with his persistently elevated lactic acid it still in the back of my mind -Nonetheless something going on in the abdomen is been going on for the last few days as he has been feeling well for the last few days he has been feeling nauseous, has been having intermittent abdominal pain -Then last night, he had 5-6 significant episodes of aspiration -These episodes aspiration likely contained gastric acid, GI contents that resulted in aspiration pneumonitis and aspiration pneumonia which resulted in acute respiratory failure -Resulting in him becoming unresponsive, and going into respiratory failure requiring intubation -That he went into septic shock, likely from the aspiration event, pneumonia, from the shock, from dehydration, and from bowel pathology -Currently he is in septic shock still on 3 pressors, weaning off his epi drip -He is in renal failure -Multiorgan failure -Respiratory failure -Preliminary echocardiogram findings show EF of 35%, he did have a negative stress test, he had no complaints of chest pain, possibly stress-induced, from septic shock or it could be underlying cardiovascular disease, he is on therapeutic Lovenox -And then his underlying GI pathology -The question is is that can he survive this shock, he is coming off some of the pressors, almost of epinephrine, his acidosis is improving urine output is improving, his ox requirements are decreasing -His last lactic acid is improving to 4.4 -So I think if we can give him try with supportive therapy antibiotic therapy, bicarb possibly he could survive this shock to his system -If he does not survive this shock, I discussed goals of care, patient's wants to keep him a full code, discussed risks and benefits she voiced understanding, all questions answered agreed to proceed -I discussed the possibility of dialysis if his renal function worsens, his acidosis worsens, he might need dialysis family is agreeable, is agreeable to proceed with temporary dialysis -That I discussed the possibility if patient shock were to improve and he were clinically improved than what we do -My concern is the underlying GI pathology that he needs to have an MRCP he needs to have a ERCP he needs to have a GI evaluation which we do not have here at [facility] -My concern is is that the underlying GI pathology if it is acute ascending cholangitis will fix itself unless he has tertiary level evaluation including an ERCP -I again I am still a bit suspicious that there might be ischemic bowel or bowel, although clinically it is less likely, his lactic acid is improving, abdominal exam does not seem to support that I will continue to monitor and have surgery follow -But nonetheless he needs to have GI evaluation, eventually, which can be done here [facility] and I feel that if it does not get appropriately and timely evaluated it could lead to patient getting worse and ultimately lead to morbidity and mortality -He needs to have in my opinion on bronchoscopy to help with the aspirates in his bronchus, which currently we do not have at [facility] [place] as 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 -I am having general surgery evaluate him, and will continue to follow along -It would be my recommendation that if patient would become stable, we should transfer him to a tertiary level center -I discussed the risks and benefits of transfer, they voiced understanding, all questions answered, patient's would like patient to be potentially transferred to [facility] if he were to be stable -Nonetheless still discussed the morbidity and mortality associated about transfer, they voiced understanding, all questions answered, agreed to proceed once patient's stable enough -I discussed with him that currently his status is still critical,, prognosis is guarded -Patient family wants us to continue to monitor him here, clinically treat him here, and once he is stable potentially transfer him to [facility] -I spoke to [facility] transfer line, they spoke to their physician there, and they have declined transfer for now as patient is unstable, there is no wait list, they advised me to call them back once he is more stable -Spoke to Dr. Ramsay, spoke to Dr. Brooke, spoke to Dr. He, spoke to patient's , multiple family meetings, spoke to [facility] transfer line Vitals/I&O/Wt Last Vital Signs Temp 98.1 F 04/24/23 04:00 Pulse 107 H 04/24/23 11:26 Resp 18 04/24/23 11:20 BP 107/77 04/24/23 10:00 Pulse Ox 97 04/24/23 11:20 O2 Del Method Mechanical Ventilation 04/24/23 11:20 O2 Flow Rate 2 04/23/23 20:03 FiO2 60 04/24/23 11:20 04/23/23 04/24/23 04/24/23 22:59 06:59 14:59 Intake Total 1000 / 1000 4078.361 / 5078.361 1406.700 / 1406.700 Output Total 500 / 500 Balance 1000 / 1000 3578.361 / 4578.361 1406.700 / 1406.700 Weight last 48 hrs Weight 98 kg Weight 96 kg Weight 90.718 kg Physical Exam Const: COMMON NORMALS: no acute distress OTHER: Intubated, sedated Eye: OTHER: Pupils are pinpoint, minimally reactive to light Neck/C-Spine: COMMON NORMALS: full ROM and no lymphadenopathy Lymph: LYMPHATIC: no lymphadenopathy noted Chest: COMMONS NORMALS: normal inspection of the chest Resp: COMMON NORMALS: normal respiratory effort, No retractions and No use of accessory muscles OTHER: Wheezing and crackles in all lung smith Cardio: COMMON NORMALS: regular rate, regular rhythm, S1 normal heart sound present and S2 normal heart sound present RATE: regular rate RHYTHM: regular rhythm HEART SOUNDS: S1 normal heart sound present and S2 normal heart sound present GI: OTHER: At abdomen soft, slightly distended, decreased bowel sounds, no guarding, no rebound, no rigidity : COMMON NORMALS: Yes no CVA tenderness BLADDER/KIDNEY EXAM: Yes no CVA tenderness Back/Pelvis: COMMON NORMALS: no CVA tenderness Extremity: NARRATIVE EXTREMITY EXAM: DP PT pulses diminished bilaterally capillary refill greater than 2 seconds, mottling up to the level of bilateral knees Urinary Catheter Management: Robert: Cath Placed During This Visit: yes Reason for Continuing Indwelling Catheter: Accurate Measurement of Urinary Output in Critically Ill Patients Urinary Catheter Date of Insertion: 04/24/23 Urinary Catheter Time of Insertion: 22:00 Data 04/24/23 08:40 04/24/23 04:47 Micro: Microbiology 04/24/23 00:20 Bacterial Antigens - Final Urine Kidney 04/24/23 00:20 Legionella Urinary Antigen - Final Urine Catheterized 04/23/23 18:52 Blood Culture - Preliminary Blood SPECIMEN COLLECTED 04/23/23 18:48 Blood Culture - Preliminary Blood SPECIMEN COLLECTED A&P Assessment and plan (1) Acute respiratory failure with hypoxia: (2) Aspiration pneumonia: (3) Aspiration pneumonitis: (4) Acute kidney injury: (5) Lactic acid acidosis: (6) Metabolic acidosis: (7) Hyperglycemia: (8) Transaminitis: (9) Acute cholecystitis: (10) Ascending cholangitis: (11) Septic shock: (12) Sepsis: (13) Pneumonia: (14) Hypoalbuminemia: (15) NSTEMI (non-ST elevated myocardial infarction): (16) Bandemia: (17) Multiorgan failure: Plan Acute hypoxic respiratory failure -Likely secondary from aspiration pneumonia, aspiration pneumonitis CT scan abdomen pelvis -1. Dense aspiration versus pneumonia in the lower lobes and right upper lobe. 2.? Multiple filling defects in the lower lobe bronchi could represent aspiration, mucus, or fluid. Plan -Intubated, sedated, on mechanical ventilation -Minimize FiO2, tidal volume -Daily spontaneous breathing trials -Aggressive pulmonary toilet -Continue vancomycin, meropenem, Levaquin -Family says that they found ticks on patient, will placed on doxycycline -Consider transfer for bronchoscopy Septic shock -From aspiration pneumonia, from GI pathology, possible acute ascending colitis, acute cholecystitis -Currently on 3 pressors, vasopressin, Levophed, epinephrine -Wean off epinephrine -Go down on doses of Levophed and vasopressin -Placed on albumin 25 g every 8 hours -Stress dose hydrocortisone 100 mg every 12 hours -Has right central line in place, will have another PICC line to be placed -Follow blood cultures Lactic acidosis -From septic shock as above -GI pathology -Trend lactic acids every 4 hours Metabolic acidosis -Currently on bicarbonate drip -From sepsis, septic shock, pneumonia, GI pathology Acute cholecystitis/possible acute ascending cholangitis -Too unstable for a MRCP, ERCP or transfer -We will treat with broad-spectrum antibiotic therapy as above -Serial abdominal exams -Ischemic bowel or bowel unlikely, however will do serial abdominal exams trend lactic acids monitor clinically General surgery consulted -Trend lactic acid -Trend LFTs, alk phos, bilirubin -If patient becomes stable, will consider MRCP or and or transfer to tertiary level center for ERCP and GI evaluation -General surgery consulted Transaminitis as above Hyperbilirubinemia as above Acute renal failure -Renal ultrasound, negative for obstructive uropathy or hydronephrosis -Likely from sepsis -Monitor urine output, monitor creatinine, monitor electrolyte abnormalities -Might need dialysis we will monitor clinical progress -Monitor for fluid overload Non-ST elevation IA -Type I versus type II -Likely from septic shock however cannot rule out underlying cardiac etiology -Cardiac echo ordered, did not show EF of 35% on prelim evaluation will await read by aging box hand -Currently on therapeutic Lovenox Multiorgan failure Influenza B positivity, I feel unlikely that this is playing a role, given patient's elevated creatinine, high risk of Tamiflu toxicity will hold off for now Hyperkalemia monitor Hypomagnesemia we will replace Hyperglycemia, low-dose sliding scale, likely secondary to sepsis \ Full code Lovenox for DVT prophylaxis Protonix for GI prophylaxis Status is critical, prognosis is guarded For now declined at [facility] due to being unstable I was told by dye and chemical coordinator who spoke to physician, will speak to [facility] again once his clinical status improves for possible transfer Attestations Medical Necessity Statement*: Patient requires hospitalization, inpatient, greater than 2 midnights, acute hypoxic respiratory failure, ventilator dependence, septic shock, multiple pressors, multiorgan failure, acute renal failure, NSTEMI, gallbladder pathology, possible acute ascending cholangitis, lactic acidosis, metabolic acidosis, acute renal failure, Procedures Arterial Line Size (Gauge): 20 Coding Level of Care Code Critical Care >/= 30 minutes Critical care time (in minutes): 120 The high probability of a clinically significant, sudden or life threatening deterioration, as referenced in this documentation, required my full and direct attention, intervention and personal management. The critical care time shown is in addition to time spent performing any reported separately billable procedures and includes the following: [x] Data and vital sign review and interpretation [x] Patient assessment, examination and intervention [x] Medication orders and management [x] Patient/Family updates as able [x] Care Coordination and Documentation. Diagnoses Acute respiratory failure with hypoxia J96.01 Aspiration pneumonia J69.0 Aspiration pneumonitis J69.0 Acute kidney injury N17.9 Lactic acid acidosis E87.20 Metabolic acidosis E87.20 Hyperglycemia R73.9 Transaminitis R74.01 Acute cholecystitis K81.0 Ascending cholangitis K83.09 Septic shock A41.9; R65.21 Sepsis A41.9 Pneumonia J18.9 Hypoalbuminemia E88.09 NSTEMI (non-ST elevated myocardial infarction) I21.4 Bandemia D72.825 Multiorgan failure
[2023-04-24 12:04] LABS: Hepatitis A Antibody IgM Non-Reactive (Nonreactive); Hepatitis B Core IgM Non-Reactive (Nonreactive); Hepatitis B Surface Antigen Non-Reactive (Nonreactive); Hepatitis C Virus Antibody Non-Reactive (Nonreactive)
[2023-04-24] MEDS: sucralfate 1 gm Tablet PO ×2 (12:23→23:03)
--- NOTE | 2023-04-24 12:57 | PC.SOCIAL ---
Unable to assess due to patient being intubated.
--- NOTE | 2023-04-24 13:55 | XR_ITS ---
WS: [id number] Portable AP upright chest, 04/24/2023 Clinical Data: Post PICC insertion Comparison: Portable chest, 04/23/2023 Findings: The right PICC line enters the right subclavian vein and ends in the mid C5. Vena cava. No pneumothorax is seen. The lungs demonstrate opacities which may be secondary to the patient's positio n. The endotracheal tube, right internal jugular venous catheter and nasogastric tube remain in good position. Heart is slightly enlarged. There are monitor leads on the chest wall. XR/XR chest 1V portable [id number] Impression: Satisfactory insertion of right PICC line.
--- NOTE | 2023-04-24 14:02 | PC.NURSE ---
Propofol wasted 53.344mLs witnessed by Yared MONTE
--- NOTE | 2023-04-24 15:00 | PC.NURSE ---
Double lumen PICC placed to right basilic vein without difficulty. Pt intubated and sedated. Informed consent obtained from patient . Pt critically ill with multiple IV medications. Additional access needed. Mid-arm circumference measured 10 cm from right AC 32 cm. Trimmed cath length 43 cm with 1 cm external length noted. CXR confirms tip in mid SVC, in good position for use per radiologist. Report given to bedside nurse, Tamia.
--- NOTE | 2023-04-24 16:35 | P.CONIM_ITS ---
Providers/Reason For Consult Consulting Physician/Specialty*: Dr. Dav He, DO/General surgery Reason for Consult*: Multiorgan failure Attending Physician: Haley Brooke MD Primary Care Provider: Dorian Savage History of Present Illness History of Present Illness Vic Lebron is a 58 year old male who presented to the hospital with nausea vomiting and fatigue. He also reportedly was having fever and chills. While in the emergency room he crashed and is currently on 3 pressors. He had multiple episodes of aspiration, reportedly and gastric contents are currently in the ET tube. CT of the abdomen pelvis shows dense aspiration pneumonia. An ultrasound of the gallbladder shows gallstones and a contracted gallbladder with a gallstone in the neck of the gallbladder. Common bile duct is 4 mm however he has direct hyperbilirubinemia. No inflammation around the gallbladder or other significant findings in the abdomen on CT and ultrasound. He is intubated and sedated. The abdomen is mildly distended but quite soft. Review of Systems General: Reports: 10 or more systems reviewed and unremarkable except in HPI and below Medications/Allergies Home Medications Medication Instructions Recorded Confirmed Last Taken Type fluticasone 100 mcg-salmeterol 50 1 inh inhalation BID #60 ea 01/15/23 04/24/23 Unknown Rx mcg/dose blistr powdr for inhalation (Advair Diskus) ibuprofen 800 mg tablet 800 mg PO Q8H PRN pain #20 tabs 04/17/23 04/24/23 Unknown Rx methocarbamol 500 mg tablet 1,000 mg PO Q8H #30 tabs 04/17/23 04/24/23 Unknown Rx methylprednisolone 4 mg tablets in See Rx Instructions PO .COMPLEX 04/17/23 04/24/23 04/20/23 Rx a dose pack (Medrol (Ector)) #21 ea stop taking albuterol sulfate 2.5 mg/3 mL 2.5 mg inhalation Q6H PRN 04/24/23 04/24/23 Unknown History (0.083 %) solution for nebulization Shortness Of Breath albuterol sulfate 90 mcg/actuation 2 puff inhalation Q6H PRN 04/24/23 04/24/23 Unknown History aerosol inhaler (Ventolin HFA) Shortness Of Breath levalbuterol HCl 1.25 mg/3 mL 1.25 mg inhalation Q6H PRN 04/24/23 04/24/23 Unknown History solution for nebulization Bronchospasm prednisone 20 mg tablet See Rx Instructions .Route .COMPLEX 04/24/23 04/24/23 Unknown History Allergies Allergy/AdvReac Type Severity Reaction Status Date / Time Penicillins Allergy Unknown Verified 04/24/23 08:23 Current Medications Generic Name Dose Route Start Last Admin Trade Name Freq PRN Reason Stop Dose Admin Albuterol/Ipratropium 3 ml 04/24/23 08:00 04/24/23 16:03 Ipratropium-Albuterol 3 Ml Neb INHALATION 3 ml QID.RESPIRATORY DEDE Administration Enoxaparin Sodium 100 mg 04/24/23 08:30 04/24/23 08:35 Enoxaparin 100 Mg/Ml Syringe 1 mg/kg (100 mg) 100 mg SUBCUT Administration Q12H DEDE Hydrocortisone Sodium Succinate 100 mg 04/24/23 07:30 04/24/23 08:03 Hydrocortisone 100 Mg/2 Ml Sdv IVP 100 mg Q12H DEDE Administration Norepinephrine Bitartrate 4 mg 254 mls @ 0 mls/hr 04/23/23 21:00 04/24/23 11:25 / Dextrose IV Infused .Q0M DEDE Titration Protocol Per Protocol Fentanyl 2,500 mcg/ Sodium 250 mls @ 0 mls/hr 04/23/23 21:45 04/24/23 13:32 Chloride IV 100 mcg/hr .Q0M DEDE 10 mls/hr Titration Protocol Per Protocol Epinephrine HCl 2.5 mg/ Sodium 252.5 mls @ 0 mls/hr 04/23/23 22:45 04/24/23 09:55 Chloride IV Infused .Q0M DEDE Titration Protocol Per Protocol Meropenem 1,000 mg/ Sodium 50 mls @ 100 mls/hr 04/23/23 22:45 04/24/23 15:34 Chloride IV 100 mls/hr Q8H DEDE Administration Protocol Vancomycin/PEG/NADA/Lysine/Water 1,500 mg in 300 mls @ 200 mls/hr 04/23/23 23:00 04/24/23 02:27 Vancocin IV Infused Q18H DEDE Infusion Vasopressin 40 unit/ Sodium 40 mls @ 0.03 mls/min 04/23/23 23:45 04/24/23 03:51 Chloride IV Not Given CONT DEDE Levofloxacin/Dextrose 750 mg in 150 mls @ 100 mls/hr 04/24/23 00:15 04/24/23 02:27 Levaquin-D5w IV Infused Q24H DEDE Infusion Protocol Propofol 1,000 mg in 100 mls @ 0 mls/hr 04/23/23 23:30 04/24/23 14:02 Diprivan IV Infused .Q0M DEDE Titration Protocol Per Protocol Sodium Bicarbonate 150 meq/ 1,150 mls @ 100 mls/hr 04/24/23 06:00 04/24/23 06:17 Dextrose IV 100 mls/hr .P11V48M DEDE Administration Albumin Human 25 g in 100 mls @ 60 mls/hr 04/24/23 07:30 04/24/23 15:36 Albumin IV 60 mls/hr Q8H DEDE Administration Midazolam HCl 100 mg/ Sodium 100 mls @ 0 mls/hr 04/24/23 07:45 04/24/23 09:00 Chloride IV 4 mg/hr .Q0M DEDE 4 mls/hr Titration Protocol Per Protocol Epinephrine HCl 5 mg/ Sodium 505 mls @ 0 mls/hr 04/24/23 08:30 04/24/23 15:41 Chloride IV 0.02 mcg/kg/min .Q0M DEDE 11 mls/hr Titration Protocol Per Protocol Norepinephrine Bitartrate 8 mg 508 mls @ 0 mls/hr 04/24/23 08:30 04/24/23 15:41 / Dextrose IV 14 mcg/min .Q0M DEDE 53.34 mls/hr Titration Protocol Per Protocol Doxycycline Hyclate 100 mg/ 100 mls @ 100 mls/hr 04/24/23 08:30 04/24/23 09:54 Sodium Chloride IV Infused Q12H DEDE Infusion Protocol Insulin Human Lispro 0 unit 04/24/23 12:00 04/24/23 11:24 Insulin Lispro 100 Unit/1 Ml SUBCUT 10 unit TIDWM DEDE Administration Protocol Pantoprazole Sodium 40 mg 04/24/23 12:02 04/24/23 12:23 Pantoprazole 40 Mg Sdv IVP 40 mg Q12H DEDE Administration Sucralfate 1 gm 04/24/23 12:15 04/24/23 12:23 Sucralfate 1 Gm Tablet PO 1 gm Q12H DEDE Administration PFSH Acute PFSH: Medical History Asthma No pertinent past medical history Surgical History No pertinent past surgical history Family History Father CAD (coronary artery disease), Onset Age: 60 Cancer, Onset Age: 60 prostate Diabetes Lung disease asthma Mother Diabetes Hypertension Lung disease Stroke Denies family history of Chronic kidney disease (CKD) Social History Smoking and tobacco status: former smoker Quit status (tobacco): has quit using tobacco Year quit tobacco: 2006 Alcohol intake: never Substance/Drug Use: never Adopted: No Caregiver/support person: No Lives independently: No Household members: spouse Marital status: service: No Current occupational status: employed Sexually active: Yes Do you think of yourself as: Straight/Heterosexual Current gender identity: Male Vitals/I&O/Wt Last Vital Signs Temp 99.4 F 04/24/23 10:15 Pulse 103 H 04/24/23 16:15 Resp 26 H 04/24/23 16:00 BP 121/93 04/24/23 14:00 Pulse Ox 93 04/24/23 16:00 O2 Del Method Mechanical Ventilation 04/24/23 16:00 O2 Flow Rate 2 04/23/23 20:03 FiO2 50 04/24/23 16:00 04/24/23 04/24/23 04/24/23 06:59 14:59 22:59 Intake Total 4078.361 / 5078.361 2063.497 / 2063.497 161.720 / 2225.217 Output Total 500 / 500 Balance 3578.361 / 4578.361 2063.497 / 2063.497 161.720 / 2225.217 Weight last 48 hrs Weight 216 lb 0.848 oz Weight 211 lb 10.3 oz Weight 200 lb Physical Exam Narrative: General : Patient is well developed , intubated and sedated Head : Normal cephalic, a-traumatic. Ears : Pinnae and external canal are normal. Eyes : PERRLA, Sclera and injection are normal. No conjunctival discharge. Nose : Mucous membranes are without erythema. Throat : buccal mucosa is normal, gums are without significant recession or h ypertrophy. Lungs : Equal chest rise bilaterally, no use of accessory muscles, trachea is midline. Cor : Rate and rhythm are normal. Abdomen : Soft, mild distention, NT, no g/r/m Extremities : No edema, no cyanosis or clubbing, dorsalis pedis pulses are present bilaterally, non-tender to palpation of calves. Upper extremities are normal bilaterally. Back : non-tender to palpation, no CVA tenderness. Urinary Catheter Management: Robert: Cath Placed During This Visit: yes Reason for Continuing Indwelling Catheter: Accurate Measurement of Urinary Output in Critically Ill Patients Urinary Catheter Date of Insertion: 04/24/23 Urinary Catheter Time of Insertion: 22:00 Data 04/24/23 08:40 04/24/23 04:47 Micro: Microbiology 04/24/23 00:20 Bacterial Antigens - Final Urine Kidney 04/24/23 00:20 Legionella Urinary Antigen - Final Urine Catheterized 04/23/23 18:52 Blood Culture - Preliminary Blood SPECIMEN COLLECTED 04/23/23 18:48 Blood Culture - Preliminary Blood SPECIMEN COLLECTED A&P Assessment and plan (1) Multiorgan failure: (2) Bandemia: (3) NSTEMI (non-ST elevated myocardial infarction): (4) Ascending cholangitis: (5) Acute cholecystitis: (6) Aspiration pneumonia: (7) Lactic acid acidosis: Plan The bandemia of 50% is quite concerning. Given the fevers and the direct hyperbilirubinemia, I am concerned for a sending cholangitis even though ultrasound showed a common bile duct of 0.4 cm. He also has a very significant pneumonia in the setting of aspiration Recommend MRCP, however he is too ill and intubated for MRCP at this facility. Therefore I recommend transfer to tertiary care facility where MRCP or ERCP can be performed Antibiotic therapy for now He is too unstable for cholecystectomy, will treat with antibiotics Medical management per hospitalist Procedures Arterial Line Size (Gauge): 20 Coding Level of Care Code 68633 Diagnoses Multiorgan failure Bandemia D72.825 NSTEMI (non-ST elevated myocardial infarction) I21.4 Ascending cholangitis K83.09 Acute cholecystitis K81.0 Aspiration pneumonia J69.0 Lactic acid acidosis E87.20
[2023-04-24] MEDS: acetaminophen 1,000 MG/100 ML PIGGYBACK 400 MG IV (17:06)
[2023-04-24 17:17] LABS: Glucose Point of Care 232 mg/dL (70-110)
--- NOTE | 2023-04-24 17:29 | PC.NURSE ---
Patient still critical at this time. Weaned pressors down see MAR for titration. Dr. He was consulted, no orders received at this time. Patient did spike a fever this shift, IV Tylenol given per Dr. Barnes, see MAR. POC is to continue to stabilize and possible transfer to larger facility in the future.
[2023-04-24] MEDS: sodium bicarbonate 150 MEQ in dextrose 5% 1,000 ML 50 MEQ IV (18:38)
[2023-04-24] MEDS: norepinephrine 8 MG in dextrose 5 % 500 ML 53.34 MG IV (20:24)
[2023-04-24 20:28] LABS: Glucose Point of Care 214 mg/dL (70-110)
--- NOTE | 2023-04-24 23:56 | USCV_ITS ---
Vic Lebron Age: 58 Gender: M : 1965 Exam Date: 04/24/2023 01:31 Ordering Phys: Haley Brooke MD Technologist: MAYI [place]am [place] [facility] [place]: shock Patient is on ventilator in ICU-8. BP: 132 / 98 HR: 91 Rhythm: Sinus Technical Quality: Adequate MEASUREMENTS (Male / Female) Normal Values 2D ECHO LV Diastolic Diameter PLAX 3.9 cm 4.2 - 5.9 / 3.9 - 5.3 cm LV Systolic Diameter PLAX 3.2 cm IVS Diastolic Thickness 0.8 cm 0.6 - 1.0 / 0.6 - 0.9 cm IVS Systolic Thickness 1.5 cm LVPW Diastolic Thickness 1.9 cm 0.6 - 1.0 / 0.6 - 0.9 cm LVPW Systolic Thickness 1.2 cm LVOT Diameter 1.9 cm LV Ejection Fraction 2D Teich 40.5 % LV Ejection Fraction MOD 2C 41.4 % LV Ejection Fraction 2C AL 41.1 % LA Diameter 3.2 cm LA Width 2.6 cm LA Height 4.7 cm RA Width 3.7 cm RA Height 4.1 cm Aorta at Sinotubular Diameter 3.4 cm IVC Diameter 3.0 cm M-MODE Aortic Annulus Diameter 3.6 cm LA Ao Ratio MM 0.8 MV E Point Septal Separation 0.6 cm DOPPLER AV Peak Velocity 94.0 cm/s LVOT Peak Velocity 86.0 cm/s AV Area Cont Eq vti 2.7 cm squared AV Area Cont Eq pk 2.6 cm squared MV Peak Velocity 77.0 cm/s MV Area PHT 4.8 cm squared Mitral E to A Ratio 0.8 MV E' Velocity 31.5 cm/s Mitral E to MV E' Ratio 6.2 Mitral E to LV E' Lateral Ratio 6.1 Mitral E to LV E' Septal Ratio 6.5 TR Peak Velocity 225.7 cm/s TR Peak Gradient 20.3 mmHg TV Peak E Velocity 36.0 cm/s Right Atrial Pressure 5.0 mmHg Pulmonary Artery Systolic Pressu 25.4 mmHg PV Peak Velocity 62.0 cm/s RV Acceleration Time 0.1 s RV Ejection Time 0.3 s RV AcT/ET 0.3 FINDINGS Left Ventricle Normal left ventricular cavity size. Moderately decreased left ventricular systolic function. Left ventricular ejection fraction is estimated at 30-35 %. Moderate global hypokinesis. Normal diastolic function. Abnormal septal motion consistent with conduction abnormality. Right Ventricle Normal right ventricular size and systolic function. Right ventricular systolic pressure 35 mmHg. Right Atrium Normal right atrial size. Left Atrium Normal left atrial size. Mitral Valve Structurally normal mitral valve. No mitral valve stenosis. No mitral valve regurgitation. Aortic Valve Thickened trileaflet aortic valve. No aortic valve stenosis. No aortic valve regurgitation. Tricuspid Valve Structurally normal tricuspid valve. Trace tricuspid valve regurgitation. Pulmonic Valve Pulmonic valve not well visualized. Pericardium No pericardial effusion. Aorta Normal size aortic root and proximal ascending aorta. IVC Dilated IVC with decreased respiratory variation. CONCLUSIONS 1. Normal left ventricular cavity size. Moderately decreased left ventricular systolic function. Left ventricular ejection fraction is estimated at 30-35 %. Moderate global hypokinesis. Normal diastolic function. 2. Normal right ventricular size and systolic function. 3. Pulmonary artery pressure estimated at 35 mmHg. 4. No prior similar studies to compare. Betty Babb MD (Electronically Signed) Final Date: 24 Apr 2023 12:27 S
[2023-04-25] VITALS (63 sets, daily range): BP systolic 93–123; BP diastolic 57–84; PULSE 89–103; RESP 18–20; TEMP 36.8–37.1; O2SAT 91–95; BMI 35.7
[2023-04-25 03:52] LABS: Hematocrit 33.1 % (42.0-52.0); Hemoglobin 11.1 g/dL (11.7-16.6); Lymphocytes # 0.7 10^3/uL (0.8-4.8); Mean Corpuscular HGB Conc 33.5 g/dL (30.0-36.0); Mean Corpuscular Volume 92.5 fl (80-94); Mean Platelet Volume 9.5 fL (7.4-10.4); Monocytes # 0.3 10^3/uL (0.2-0.9); Monocytes % 1.9 %; Neutrophils # 15.49 10^3/uL (1.8-7.7); Nucleated Red Blood Cells % 0 %; Platelet Count 164 10^3/cmm (130-400); Red Blood Count 3.58 10^6/uL (4.1-5.3); Red Cell Distribution Width 13.8 % (12.1-15.1); White Blood Count 16.7 10^3/uL (4.0-10.0)
[2023-04-25 04:03] LABS: INR 1.97 (0.8-1.2)
[2023-04-25 04:04] LABS: Fibrinogen 531 mg/dL (174-498); Partial Thromboplastin Time 47.7 SECONDS (23.9-36.7)
[2023-04-25 04:07] LABS: D Dimer 2.04 ug/mIFEU (0-0.59)
[2023-04-25 04:11] LABS: Lactate (Lactic Acid level) 3.4 mmol/L (0.5-2.2)
[2023-04-25 04:43] LABS: ABG PCO2 35.2 mmHg (35-45); ABG PH Result 7.44 (7.35-7.45); Arterial Blood Gas Hematocrit 11.9 % (42-52); Base Excess ABG -0.7 mmol/L (-2.0-2.0); Blood Gas Operator Identificat JB; Blood Gas Sample Site Not specified; Blood Gas Sample Type Arterial; HCO3 ABG 23.6 mmol/L (22-26); Oxygen Device VENT; PO2 ABG 72.2 mmHg (80.0-100.0)
[2023-04-25 04:47] LABS: Albumin Level 3.2 g/dL (3.5-5.2); Alkaline Phosphatase 68 U/L (40-130); Aspartate Amino Transferase 683 U/L (0-40); Blood Urea Nitrogen 32 mg/dL (6-20); C Reactive Protein 331.9 mg/L (0.0-4.9); Calcium 6.6 mg/dL (8.5-10.5); Carbon Dioxide 22 mmol/L (22-29); Chloride 100 mmol/L (98-107); Creatine Phosphokinase 234 U/L (39-308); Glomerular Filtration Rate 39.2 mL/min (90-130); Glucose 207 mg/dL (65-115); Magnesium 1.6 mg/dL (1.7-2.3); Osmolality Calculated 297 mOsm/kg (285-295); Phosphorus 3.5 mg/dL (2.5-4.5); Sodium 137 mmol/L (136-145); Total Bilirubin 1.6 mg/dL (0.15-1.2); Total Protein 5.2 g/dL (6.6-8.7)
[2023-04-25 04:59] LABS: Alanine Aminotransferase 1163 U/L (0-41)
[2023-04-25 05:03] LABS: Ferritin 6819 ng/mL (30-400)
[2023-04-25 05:26] LABS: CKMB 1.3 ng/mL (0-10.4)
[2023-04-25 05:31] LABS: Procalcitonin > 100.00 ng/mL (0-0.5)
[2023-04-25 05:32] LABS: NT Pro B Type Natriuretic Pept 3339 pg/mL (0-125)
[2023-04-25] MEDS: meropenem 1,000 MG in sodium chloride 0.9% (plus) 50 ML 100 MG IV (06:13)
[2023-04-25] MEDS: albumin 25 G/100 ML BAG 60 G IV (06:14)
[2023-04-25] MEDS: hydrocortisone 100 mg/2 mL SDV IVP (06:19)
--- NOTE | 2023-04-25 07:00 | XRR_ITS ---
PROCEDURE INFORMATION: Exam: XR Abdomen Exam date and time: 04/25/2023 6:41 AM Age: 58 years old Clinical indication: Other: Distention TECHNIQUE: Imaging protocol: Radiologic exam of the abdomen. Views: Frontal supine view of the abdomen. 1 View. COMPARISON: CR XR KUB portable [id number] 04/24/2023 9:06 AM FINDINGS: Tubes, catheters and devices: Nasogastric tube with tip in the gastric antrum. Gastrointestinal tract: Nonobstructive bowel gas pattern. Intraperitoneal space: No gross free air. Vasculature: No portal venous gas. Bones/joints: No gross acute fracture. XR/XR KUB portable [id number] IMPRESSION: Nasogastric tube with tip in the gastric antrum.
--- NOTE | 2023-04-25 07:00 | XRR_ITS ---
PROCEDURE INFORMATION: Exam: XR Chest Exam date and time: 04/25/2023 6:41 AM Age: 58 years old Clinical indication: Endotracheal tube placement. Shortness of breath. TECHNIQUE: Imaging protocol: Radiologic exam of the chest. Views: 1 view. COMPARISON: CR XR chest 1V portable [id number] 04/24/2023 2:55 PM FINDINGS: Tubes, catheters and devices: Endotracheal tube with tip approximately 2.7 cm above the gerry. Nasogastric tube with tip in the gastric antrum. Right internal jugular central venous access device with tip in the SVC. Right PICC with tip at the SVC/right atrial junction. Lungs: There are persistent bibasilar opacities likely reflecting consolidation and/or effusion. Pleural spaces: No pneumothorax. Heart/Mediastinum: The cardiac silhouette is approximately unchanged. No gross evidence of pneumomediastinum. Bones/joints: No gross fracture. XR/XR chest 1V portable [id number] IMPRESSION: 1. Endotracheal tube with tip approximately 2.7 cm above the gerry. 2. Nasogastric tube with tip in the gastric antrum. 3. Right internal jugular central venous access device with tip in the SVC. 4. Right PICC with tip at the SVC/right atrial junction. 5. Persistent bibasilar opacities likely reflecting consolidation and/or effusion.
[2023-04-25 08:16] LABS: Glucose Point of Care 177 mg/dL (70-110)
[2023-04-25] MEDS: insulin lispro 100 unit/1 mL SUBCUT ×2 (08:18→13:01)
[2023-04-25] MEDS: enoxaparin 100 mg/mL Syringe SUBCUT (08:20)
[2023-04-25] MEDS: doxycycline 100 MG in sodium chloride 0.9% (plus) 100 ML IV (08:22)
[2023-04-25] MEDS: ipratropium-albuterol 3 mL Neb INHALATION ×2 (08:31→11:17)
[2023-04-25] MEDS: magnesium sulfate premix 2 GM/50 ML PIGGYBACK IV (08:53)
[2023-04-25] MEDS: vancomycin 1,500 MG/300 ML PIGGYBACK 200 MG IV (10:29)
[2023-04-25 10:47] LABS: Basophils # 0.1 10^3/uL (0.0-0.1); Basophils % 0.8 %; Hematocrit 30.5 % (42.0-52.0); Hemoglobin 10.3 g/dL (11.7-16.6); Lymphocytes # 0.5 10^3/uL (0.8-4.8); Lymphocytes % 2.6 %; Mean Corpuscular HGB Conc 33.8 g/dL (30.0-36.0); Mean Corpuscular Hemoglobin 30.9 pg (28.0-34.0); Mean Corpuscular Volume 91.6 fl (80-94); Mean Platelet Volume 9.3 fL (7.4-10.4); Monocytes # 0.3 10^3/uL (0.2-0.9); Monocytes % 1.9 %; Neutrophils % 94.2 %; Nucleated Red Blood Cells % 0 %; Platelet Count 149 10^3/cmm (130-400); Red Blood Count 3.33 10^6/uL (4.1-5.3); Red Cell Distribution Width 13.6 % (12.1-15.1); White Blood Count 17.2 10^3/uL (4.0-10.0)
--- NOTE | 2023-04-25 10:55 | PM.PN ---
Subjective Subjective: Patient is arousable today. Pressor requirements have come down dramatically. Abdomen is nontender Vitals/I&O/Wt Last Vital Signs Temp 98.3 F 04/25/23 08:30 Pulse 103 H 04/25/23 08:32 Resp 18 04/25/23 10:48 BP 103/70 04/25/23 08:30 Pulse Ox 93 04/25/23 10:48 O2 Del Method Mechanical Ventilation 04/25/23 08:32 O2 Flow Rate 2 04/23/23 20:03 FiO2 50 04/25/23 10:48 04/24/23 04/25/23 04/25/23 22:59 06:59 14:59 Intake Total 2427.119 / 4490.616 1281.235 / 5771.851 250 / 250 Output Total 1300 / 1300 300 / 1600 Balance 1127.119 / 3190.616 981.235 / 4171.851 250 / 250 Weight last 48 hrs Weight 221 lb 9.033 oz Weight 216 lb 0.848 oz Weight 211 lb 10.3 oz Weight 200 lb Physical Exam Narrative: General: Intubated, sedated Abdomen soft, mildly distended, nontender Urinary Catheter Management: Robert: Cath Placed During This Visit: yes Reason for Continuing Indwelling Catheter: Accurate Measurement of Urinary Output in Critically Ill Patients Urinary Catheter Date of Insertion: 04/24/23 Urinary Catheter Time of Insertion: 22:00 Data 04/25/23 03:20 04/25/23 03:20 Micro: Microbiology 04/23/23 18:52 Blood Culture - Preliminary Blood NEGATIVE TO DATE 04/23/23 18:48 Blood Culture - Preliminary Blood NEGATIVE TO DATE 04/24/23 00:20 Bacterial Antigens - Final Urine Kidney A&P Assessment and plan (1) Multiorgan failure: (2) Bandemia: (3) NSTEMI (non-ST elevated myocardial infarction): (4) Ascending cholangitis: (5) Acute cholecystitis: (6) Aspiration pneumonia: (7) Lactic acid acidosis: Plan I am concerned for ascending cholangitis even though ultrasound showed a common bile duct of 0.4 cm. He also has a very significant pneumonia in the setting of aspiration Recommend MRCP, however it cannot be done while intubated at this facility. Therefore I recommend transfer to tertiary care facility where MRCP or ERCP can be performed Antibiotic therapy for now Medical management per hospitalist Attestations Medical Necessity Statement*: per primary Procedures Arterial Line Size (Gauge): 20 Coding Level of Care Code Acute Code for Chg Fwd Diagnoses Multiorgan failure Bandemia D72.825 NSTEMI (non-ST elevated myocardial infarction) I21.4 Ascending cholangitis K83.09 Acute cholecystitis K81.0 Aspiration pneumonia J69.0 Lactic acid acidosis E87.20
[2023-04-25 11:27] LABS: Add RBC Morph No; Slide Review Slide Review Perform
--- NOTE | 2023-04-25 11:57 | PM.PN ---
Subjective Subjective: - Patient was seen this morning, multiple times, family members at bedside, and then again family meeting, spoke to nursing staff, spoke to general surgery -Patient was seen this morning, daughter at bedside, on minimal sedation he does open his eyes, he squeezes her fingers, he can follow commands at times -Afebrile overnight -He is on 4 of Levophed -Good urine output -On 50% FiO2 -I had a meeting with the patient's family, -Discussed patient's respiratory failure improving, although he was on multiple pressors, his neurologic status remained stable, he can follow commands, on minimal sedation, on the ventilator which is positive -His FiO2 requirements are decreasing in terms of respiratory failure he continues thick viscous secretions, from his endotracheal tube, blood-tinged at times -Has good urine output his creatinine remains 1.8, still has renal failure likely second to sepsis but stable -Lactic acidosis is improving -His LFTs have gone up, bili studies at 1.6, concerns for shock liver, concern for cholangitis, -Recommend transfer to tertiary level center for pulmonary eval bronchoscopy GI eval ERCP -Patient's family is agreeable, voiced understanding, agreeable to proceed -I spoke to [facility], they are full, [facility] is also full and they do not do ERCP -Spoke to [facility], in [place], they have beds they have availability -I spoke to patient's family about [facility] as opportunity, for transfer they are agreeable, discussed risks and benefits of transfer they voiced understanding, all question answered, agreed to proceed -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, 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, 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, has been accepted [facility] -I went back and spoke to patient's , about the transfer she is agreeable discussed risks and benefits of transfer she voiced understanding, ultrasounds agreed to proceed -We will transfer to [facility] in [place], Vitals/I&O/Wt Last Vital Signs Temp 98.3 F 04/25/23 08:30 Pulse 93 04/25/23 11:17 Resp 18 04/25/23 11:17 BP 103/70 04/25/23 08:30 Pulse Ox 93 04/25/23 11:17 O2 Del Method Mechanical Ventilation 04/25/23 11:17 O2 Flow Rate 2 04/23/23 20:03 FiO2 50 04/25/23 11:17 04/24/23 04/25/23 04/25/23 22:59 06:59 14:59 Intake Total 2427.119 / 4490.616 1281.235 / 5771.851 250 / 250 Output Total 1300 / 1300 300 / 1600 Balance 1127.119 / 3190.616 981.235 / 4171.851 250 / 250 Weight last 48 hrs Weight 100.5 kg Weight 98 kg Weight 96 kg Weight 90.718 kg Physical Exam Const: COMMON NORMALS: no acute distress OTHER: Intubated, endotracheal tube in place, orogastric tube in place Right internal jugular central line in place Left PICC line in place Left radial arterial line in place Chest: COMMONS NORMALS: normal inspection of the chest Resp: COMMON NORMALS: normal respiratory effort, No retractions, No use of accessory muscles and clear to auscultation bilaterally AUSCULTATION: clear to auscultation bilaterally Cardio: COMMON NORMALS: regular rate, regular rhythm, S1 normal heart sound present and S2 normal heart sound present RATE: regular rate RHYTHM: regular rhythm HEART SOUNDS: S1 normal heart sound present and S2 normal heart sound present GI: COMMON NORMALS: Normal to inspection, nondistended, normoactive bowel sounds present and non-tender Extremity: COMMON NORMALS: no pedal edema Skin: NARRATIVE SKIN EXAM: Good capillary refill, no mottling, cap refill less than 2 seconds, DP PT pulses palpable, 2+ Urinary Catheter Management: Robert: Cath Placed During This Visit: yes Reason for Continuing Indwelling Catheter: Accurate Measurement of Urinary Output in Critically Ill Patients Urinary Catheter Date of Insertion: 04/24/23 Urinary Catheter Time of Insertion: 22:00 Data 04/25/23 10:35 04/25/23 03:20 Micro: Microbiology 04/23/23 21:56 Gram Stain - Final Sputum - Endotracheal Tube Aspirate 04/23/23 18:52 Blood Culture - Preliminary Blood NEGATIVE TO DATE 04/23/23 18:48 Blood Culture - Preliminary Blood NEGATIVE TO DATE 04/24/23 00:20 Bacterial Antigens - Final Urine Kidney A&P Assessment and plan (1) Acute respiratory failure with hypoxia: (2) Aspiration pneumonia: (3) Aspiration pneumonitis: (4) Acute kidney injury: (5) Lactic acid acidosis: (6) Metabolic acidosis: (7) Hyperglycemia: (8) Transaminitis: (9) Acute cholecystitis: (10) Ascending cholangitis: (11) Septic shock: (12) Sepsis: (13) Pneumonia: (14) Hypoalbuminemia: (15) NSTEMI (non-ST elevated myocardial infarction): (16) Bandemia: (17) Multiorgan failure: Plan Acute hypoxic respiratory failure -Likely secondary from aspiration pneumonia, aspiration pneumonitis CT scan abdomen pelvis -1. Dense aspiration versus pneumonia in the lower lobes and right upper lobe. 2.? Multiple filling defects in the lower lobe bronchi could represent aspiration, mucus, or fluid. Plan -Intubated, sedated, on mechanical ventilation -Minimize FiO2, tidal volume -Daily spontaneous breathing trials -Aggressive pulmonary toilet -Continue vancomycin, meropenem, Levaquin -Family says that they found ticks on patient, on doxycycline -We will transfer for bronchoscopy, and pulmonary eval Septic shock, improving -From aspiration pneumonia, from GI pathology, possible acute ascending colitis, acute cholecystitis -Currently on 4 of Levophed, currently minimally going at 1 mcg -Placed on albumin 25 g every 8 hours -Stress dose hydrocortisone 100 mg every 12 hours -Has right central line in place, will have another PICC line to be placed -Follow blood cultures Lactic acidosis, resolving -From septic shock as above -GI pathology -Trend lactic acids every 4 hours Metabolic acidosis, resolving -Off bicarb drip -From sepsis, septic shock, pneumonia, GI pathology Acute cholecystitis/possible acute ascending cholangitis -Now stable for transfer MRCP, ERCP or transfer -Nonetheless, discussed risk and benefits of transfer with family, discussed morbidity and mortality associate with transfer, they voiced understanding, all questions were, agreed to proceed -We will treat with broad-spectrum antibiotic therapy as above -Serial abdominal exams -Ischemic bowel or bowel unlikely, however will continue to do serial abdominal exams trend lactic acids monitor clinically General surgery consulted -Trend lactic acid -Trend LFTs, alk phos, bilirubin -Nursing staff was told by radiology that we cannot do MRCP is here at [facility] on vented patients -General surgery consulted Transaminitis as above Hyperbilirubinemia as above Acute renal failure, improving -Likely from sepsis -Monitor urine output, monitor creatinine, monitor electrolyte abnormalities -Might need dialysis we will monitor clinical progress -Monitor for fluid overload Non-ST elevation ME -Type I versus type II -Likely from septic shock however cannot rule out underlying cardiac etiology -Cardiac echo 1. Normal left ventricular cavity size. Moderately decreased ?left ventricular systolic function. Left ventricular ejection ?fraction is estimated at 30-35 %.? Moderate global hypokinesis.? ?Normal diastolic function. ?2. Normal right ventricular size and systolic function. ?3. Pulmonary artery pressure estimated at 35 mmHg. ?4. No prior similar studies to compare. -Currently on therapeutic Lovenox Multiorgan failure, improving Influenza B positivity, I feel unlikely that this is playing a role, given patient's elevated creatinine, high risk of Tamiflu toxicity will hold off for now Hyperkalemia monitor Hypomagnesemia we will replace Hyperglycemia, low-dose sliding scale, likely secondary to sepsis \ Full code Lovenox for DVT prophylaxis Protonix for GI prophylaxis Status is critical, prognosis is guarded Transfer to [facility] Plan for today, arrangements made to transfer to [facility], continue antibiotics, wean off Levophed, wean FiO2, continue therapeutic Lovenox, continue stress dose hydrocortisone, continue albumin, wean off bicarbonate drip, monitor mentation, follow cultures, spoke to general surgery recommended transfer to tertiary level center for ERCP MRCP, spoke to patient's family, spoke to patient's , spoke to nursing staff, Attestations Medical Necessity Statement*: Patient requires hospitalization for acute hypoxic respiratory failure secondary to aspiration pneumonia, aspiration pneumonitis, septic shock, organ failure, concerns for acute ascending cholangitis, acute renal failure, on pressors, intubated Procedures Arterial Line Size (Gauge): 20 Coding Level of Care Code Critical Care >/= 30 minutes Critical care time (in minutes): 120 The high probability of a clinically significant, sudden or life threatening deterioration, as referenced in this documentation, required my full and direct attention, intervention and personal management. The critical care time shown is in addition to time spent performing any reported separately billable procedures and includes the following: [x] Data and vital sign review and interpretation [x] Patient assessment, examination and intervention [x] Medication orders and management [x] Patient/Family updates as able [x] Care Coordination and Documentation. Diagnoses Acute respiratory failure with hypoxia J96.01 Aspiration pneumonia J69.0 Aspiration pneumonitis J69.0 Acute kidney injury N17.9 Lactic acid acidosis E87.20 Metabolic acidosis E87.20 Hyperglycemia R73.9 Transaminitis R74.01 Acute cholecystitis K81.0 Ascending cholangitis K83.09 Septic shock A41.9; R65.21 Sepsis A41.9 Pneumonia J18.9 Hypoalbuminemia E88.09 NSTEMI (non-ST elevated myocardial infarction) I21.4 Bandemia D72.825 Multiorgan failure
[2023-04-25 12:08] LABS: Lactate (Lactic Acid level) 2.5 mmol/L (0.5-2.2)
--- NOTE | 2023-04-25 12:08 | PM.TDS ---
Transfer Summary Providers Date of Admission: 04/23/23 20:48 Date of Discharge/Transfer: 04/25/23 Attending Provider at Admission: Haley Brooke MD Attending Provider at Transfer: Kings Barnes MD Primary Care Provider: Dorian Savage Transfer Plans: Anticipated date of transfer: 04/25/23. Diagnoses at Discharge Discharge Diagnosis (1) Acute respiratory failure with hypoxia: Status: Acute (2) Aspiration pneumonia: Status: Acute (3) Aspiration pneumonitis: Status: Acute (4) Acute kidney injury: Status: Acute (5) Lactic acid acidosis: Status: Acute (6) Metabolic acidosis: Status: Acute (7) Hyperglycemia: Status: Acute (8) Transaminitis: Status: Acute (9) Acute cholecystitis: Status: Acute (10) Ascending cholangitis: Status: Acute (11) Septic shock: Status: Acute (12) Sepsis: Status: Acute (13) Pneumonia: Status: Acute (14) Hypoalbuminemia: Status: Acute (15) NSTEMI (non-ST elevated myocardial infarction): Status: Acute (16) Bandemia: Status: Acute (17) Multiorgan failure: Status: Acute Reason for Visit Reason for Visit fever, chest congestion Hospital Course Hospital Course This is a 58-year-old male with no significant past medical history, who presents [facility] due to nausea, vomiting, fatigue, malaise, nonspecific abdominal pain Patient was admitted to [facility] for acute hypoxic respiratory failure secondary to aspiration pneumonia, aspiration pneumonitis, secondary to concerns for acute ascending cholangitis. Intubated, ventilated, placed on sedation, placed on 3 pressors, moved to the intensive care unit. Patient was monitored over the next 48 hours, with broad-spectrum antibiotic therapy, supportive care he overall clinically improved, down to 1 pressor, Levophed going minimally at 1 mcg/min, his FiO2 requirements have decreased to 50%, has robust urine output, creatinine remains 1.8, continues to have thick copious secretions blood-tinged from endotracheal tube, abdomen is soft, slightly distended, hypoactive bowel sounds, on minimal sedation, he does follow commands, patient was transferred to tertiary level center for pulmonary evaluation for possible bronchoscopy, for GI evaluation for possible ERCP or MRCP. Patient was transferred to [facility] Acute hypoxic respiratory failure -Likely secondary from aspiration pneumonia, aspiration pneumonitis CT scan abdomen pelvis -1. Dense aspiration versus pneumonia in the lower lobes and right upper lobe. 2.? Multiple filling defects in the lower lobe bronchi could represent aspiration, mucus, or fluid. Plan -Intubated, sedated, on mechanical ventilation -Minimize FiO2, tidal volume -Daily spontaneous breathing trials -Aggressive pulmonary toilet -Continue vancomycin, meropenem, Levaquin -Family says that they found ticks on patient, on doxycycline -We will transfer for bronchoscopy, and pulmonary eval Septic shock, improving -From aspiration pneumonia, from GI pathology, possible acute ascending colitis, acute cholecystitis -Currently on 4 of Levophed, currently minimally going at 1 mcg -Placed on albumin 25 g every 8 hours -Stress dose hydrocortisone 100 mg every 12 hours -Has right central line in place, will have another PICC line to be placed -Follow blood cultures Lactic acidosis, resolving -From septic shock as above -GI pathology -Trend lactic acids every 4 hours Metabolic acidosis, resolving -Off bicarb drip -From sepsis, septic shock, pneumonia, GI pathology Acute cholecystitis/possible acute ascending cholangitis -Now stable for transfer MRCP, ERCP or transfer -Nonetheless, discussed risk and benefits of transfer with family, discussed morbidity and mortality associate with transfer, they voiced understanding, all questions were, agreed to proceed -We will treat with broad-spectrum antibiotic therapy as above -Serial abdominal exams -Ischemic bowel or bowel unlikely, however will continue to do serial abdominal exams trend lactic acids monitor clinically General surgery consulted -Trend lactic acid -Trend LFTs, alk phos, bilirubin -Nursing staff was told by radiology that we cannot do MRCP is here at [facility] on vented patients -General surgery consulted Transaminitis as above Hyperbilirubinemia as above Acute renal failure, improving -Likely from sepsis -Monitor urine output, monitor creatinine, monitor electrolyte abnormalities -Might need dialysis we will monitor clinical progress -Monitor for fluid overload Non-ST elevation NV -Type I versus type II -Likely from septic shock however cannot rule out underlying cardiac etiology -Cardiac echo 1. Normal left ventricular cavity size. Moderately decreased ?left ventricular systolic function. Left ventricular ejection ?fraction is estimated at 30-35 %.? Moderate global hypokinesis.? ?Normal diastolic function. ?2. Normal right ventricular size and systolic function. ?3. Pulmonary artery pressure estimated at 35 mmHg. ?4. No prior similar studies to compare. -Currently on therapeutic Lovenox Multiorgan failure, improving Influenza B positivity, I feel unlikely that this is playing a role, given patient's elevated creatinine, high risk of Tamiflu toxicity will hold off for now Hyperkalemia monitor Hypomagnesemia we will replace Hyperglycemia, low-dose sliding scale, likely secondary to sepsis \ Full code Lovenox for DVT prophylaxis Protonix for GI prophylaxis Status is stable, prognosis is guarded Transfer to [facility] Physical Exam Const: COMMON NORMALS: no acute distress Resp: COMMON NORMALS: normal respiratory effort, No retractions, No use of accessory muscles and clear to auscultation bilaterally AUSCULTATION: clear to auscultation bilaterally Cardio: COMMON NORMALS: regular rate, regular rhythm, S1 normal heart sound present and S2 normal heart sound present RATE: regular rate RHYTHM: regular rhythm HEART SOUNDS: S1 normal heart sound present and S2 normal heart sound present GI: OTHER: Abdomen is soft, slightly distended, hypoactive bowel sounds, no guarding, no rebound, rigidity Extremity: COMMON NORMALS: no pedal edema Psych: COMMON NORMALS: mental status grossly normal Urinary Catheter Management: Robert: Cath Placed During This Visit: yes Reason for Continuing Indwelling Catheter: Accurate Measurement of Urinary Output in Critically Ill Patients Urinary Catheter Date of Insertion: 04/24/23 Urinary Catheter Time of Insertion: 22:00 TS Data Studies Completed and Pending Pending at discharge Category Date Time Status Arterial Blood Gas W/O Coox AM LABS Lab 04/26/23 04:00 Ordered Arterial Blood Gas W/O Coox AM LABS Lab 04/27/23 04:00 Ordered Blood Culture Stat Lab 04/23/23 18:52 Results C Reactive Protein AM LABS Lab 04/26/23 04:00 Ordered C Reactive Protein AM LABS Lab 04/27/23 04:00 Ordered Complete Blood Count w/Auto AM LABS Lab 04/26/23 04:00 Ordered Complete Blood Count w/Auto AM LABS Lab 04/27/23 04:00 Ordered Complete Blood Count w/Auto DAILY Lab 04/26/23 10:00 Ordered Comprehensive Metabolic Panel AM LABS Lab 04/26/23 04:00 Ordered Comprehensive Metabolic Panel AM LABS Lab 04/26/23 04:00 Ordered Comprehensive Metabolic Panel AM LABS Lab 04/27/23 04:00 Ordered Creatine Phosphokinase AM LABS Lab 04/26/23 04:00 Ordered Creatine Phosphokinase AM LABS Lab 04/27/23 04:00 Ordered DIC Profile AM LABS Lab 04/26/23 04:00 Ordered DIC Profile AM LABS Lab 04/27/23 04:00 Ordered Ferritin AM LABS Lab 04/26/23 04:00 Ordered Ferritin AM LABS Lab 04/27/23 04:00 Ordered Lactate (Lactic Acid level) AM LABS Lab 04/26/23 04:00 Ordered Lactate (Lactic Acid level) AM LABS Lab 04/27/23 04:00 Ordered Lactate (Lactic Acid level) Q4H Lab 04/25/23 11:41 Received Lactate (Lactic Acid level) Q4H Lab 04/25/23 16:00 Ordered Lactate (Lactic Acid level) Q4H Lab 04/25/23 20:00 Ordered Lactate (Lactic Acid level) Q4H Lab 04/26/23 00:00 Ordered Lactate (Lactic Acid level) Q4H Lab 04/26/23 04:00 Ordered Magnesium AM LABS Lab 04/26/23 04:00 Ordered Magnesium AM LABS Lab 04/27/23 04:00 Ordered NT Pro B Type Natriuretic Pept QAM Lab 04/26/23 06:00 Ordered NT Pro B Type Natriuretic Pept QAM Lab 04/27/23 06:00 Ordered Phosphorus AM LABS Lab 04/26/23 04:00 Ordered Phosphorus AM LABS Lab 04/27/23 04:00 Ordered Procalcitonin AM LABS Lab 04/26/23 04:00 Ordered Procalcitonin AM LABS Lab 04/27/23 04:00 Ordered Sputum Culture and Gram Stain Routine Lab 04/23/23 21:56 Results Vancomycin Trough Timed Lab 04/26/23 04:00 Ordered MR MRCP [id number] Stat MRI 04/25/23 08:36 Ordered Labs from last 24 hours 04/25/23 04/25/23 04/25/23 11:41 10:35 08:13 WBC 17.2 H RBC 3.33 L Hgb 10.3 L Hct 30.5 L MCV 91.6 MCH 30.9 MCHC 33.8 RDW 13.6 Plt Count 149 MPV 9.3 Neut % (Auto) 94.2 Lymph % (Auto) 2.6 Woods % (Auto) 1.9 Eos % (Auto) 0.0 Baso % (Auto) 0.8 Neut # (Auto) 16.20 H Lymph # (Auto) 0.5 L Woods # (Auto) 0.3 Eos # (Auto) 0.0 Baso # (Auto) 0.1 Nucleated RBC % (auto) 0 Nucleated RBCs # 0.0 PT INR APTT Fibrinogen Fibrin Degrad Products D-Dimer Specimen Type Sample Site ABG pH ABG pCO2 ABG pO2 ABG HCO3 ABG Base Excess Mariano Test Hematocrit O2 Delivery Device FiO2 Tidal Volume PEEP Boring Machine Operator Production ID Sodium Potassium Chloride Carbon Dioxide Anion Gap BUN Creatinine GFR Calculation Glucose POC Glucose 177 H Calculated Osmolality Lactate Pending Calcium Phosphorus Magnesium Ferritin Total Bilirubin AST ALT Alkaline Phosphatase Creatine Kinase CK-MB (CK-2) CK-MB (CK-2) Rel Index C-Reactive Protein NT-Pro-B Natriuret Pep Total Protein Albumin Globulin Procalcitonin 04/25/23 04/25/23 04/25/23 04:30 03:20 03:20 WBC RBC Hgb Hct MCV MCH MCHC RDW Plt Count MPV Neut % (Auto) Lymph % (Auto) Woods % (Auto) Eos % (Auto) Baso % (Auto) Neut # (Auto) Lymph # (Auto) Woods # (Auto) Eos # (Auto) Baso # (Auto) Nucleated RBC % (auto) Nucleated RBCs # PT INR APTT Fibrinogen Fibrin Degrad Products D-Dimer Specimen Type Arterial Sample Site Not specified ABG pH 7.44 ABG pCO2 35.2 ABG pO2 72.2 L ABG HCO3 23.6 ABG Base Excess -0.7 Mariano Test N/a Hematocrit 11.9 L O2 Delivery Device Vent FiO2 50.0 Tidal Volume 0.50 PEEP 8.0 Boring Machine Operator Production ID Kev Sodium 137 Potassium 4.0 Chloride 100 Carbon Dioxide 22 Anion Gap 19.0 BUN 32 H Creatinine 1.8 H GFR Calculation 39.2 L Glucose 207 H POC Glucose Calculated Osmolality 297 H Lactate 3.4 H Calcium 6.6 L Phosphorus 3.5 Magnesium 1.6 L Ferritin 6819 H Total Bilirubin 1.6 H AST 683 H ALT 1163 H Alkaline Phosphatase 68 Creatine Kinase 234 CK-MB (CK-2) 1.3 CK-MB (CK-2) Rel Index C-Reactive Protein 331.9 H NT-Pro-B Natriuret Pep 3339 H Total Protein 5.2 L Albumin 3.2 L Globulin 2.0 Procalcitonin > 100.00 H 04/25/23 04/25/23 04/24/23 03:20 01:39 20:26 WBC 16.7 H RBC 3.58 L Hgb 11.1 L Hct 33.1 L MCV 92.5 MCH 31.0 MCHC 33.5 D RDW 13.8 Plt Count 164 D MPV 9.5 Neut % (Auto) 93.0 Lymph % (Auto) 4.0 Woods % (Auto) 1.9 Eos % (Auto) 0.0 Baso % (Auto) 0.0 Neut # (Auto) 15.49 H Lymph # (Auto) 0.7 L Woods # (Auto) 0.3 Eos # (Auto) 0.0 Baso # (Auto) 0.0 Nucleated RBC % (auto) 0 Nucleated RBCs # 0.0 PT 23.10 H INR 1.97 H APTT 47.7 H D Fibrinogen 531 H Fibrin Degrad Products Neg, <10 D-Dimer 2.04 H Specimen Type Sample Site ABG pH ABG pCO2 ABG pO2 ABG HCO3 ABG Base Excess Mariano Test Hematocrit O2 Delivery Device FiO2 Tidal Volume PEEP Boring Machine Operator Production ID Sodium Potassium Chloride Carbon Dioxide Anion Gap BUN Creatinine GFR Calculation Glucose POC Glucose 214 H Calculated Osmolality Lactate Calcium Phosphorus Magnesium Ferritin Total Bilirubin AST ALT Alkaline Phosphatase Creatine Kinase CK-MB (CK-2) CK-MB (CK-2) Rel Index C-Reactive Protein NT-Pro-B Natriuret Pep Total Protein Albumin Globulin Procalcitonin 04/24/23 17:15 WBC RBC Hgb Hct MCV MCH MCHC RDW Plt Count MPV Neut % (Auto) Lymph % (Auto) Woods % (Auto) Eos % (Auto) Baso % (Auto) Neut # (Auto) Lymph # (Auto) Woods # (Auto) Eos # (Auto) Baso # (Auto) Nucleated RBC % (auto) Nucleated RBCs # PT INR APTT Fibrinogen Fibrin Degrad Products D-Dimer Specimen Type Sample Site ABG pH ABG pCO2 ABG pO2 ABG HCO3 ABG Base Excess Mariano Test Hematocrit O2 Delivery Device FiO2 Tidal Volume PEEP Boring Machine Operator Production ID Sodium Potassium Chloride Carbon Dioxide Anion Gap BUN Creatinine GFR Calculation Glucose POC Glucose 232 H Calculated Osmolality Lactate Calcium Phosphorus Magnesium Ferritin Total Bilirubin AST ALT Alkaline Phosphatase Creatine Kinase CK-MB (CK-2) CK-MB (CK-2) Rel Index C-Reactive Protein NT-Pro-B Natriuret Pep Total Protein Albumin Globulin Procalcitonin Completed Studies During Hospitalization Category Date Time Status CT angio chest w abd pel w con Stat Cat Scan 04/23/23 22:[address] hip RT wo con* [id number] Stat Cat Scan 04/23/23 22:53 Completed CXRP [XR chest 1V portable [id number]] Routine Exams 04/24/23 13:55 Completed CXRP [XR chest 1V portable [id number]] Stat Exams 04/23/23 18:26 Completed XR KUB portable [id number] QAM Exams 04/25/23 07:00 Completed XR KUB portable [id number] Stat Exams 04/24/23 09:48 Completed XR chest 1V portable [id number] Routine Exams 04/25/23 07:00 Completed XR chest 1V portable [id number] Stat Exams 04/23/23 19:36 Completed XR chest 1V portable [id number] Stat Exams 04/23/23 21:37 Completed XR chest 1V portable [id number] Stat Exams 04/23/23 22:33 Completed CV. echo complete* [id number] Stat Ultrasound 04/24/23 23:56 Completed US abdomen limited [id number] Stat Ultrasound 04/24/23 07:31 Completed US renal BI* [id number] Stat Ultrasound 04/24/23 10:16 Completed Laboratory Last Values WBC 17.2 10^3/uL (4.0-10.0) H 04/25/23 10:35 Corrected WBC Cancelled 04/24/23 07:02 RBC 3.33 10^6/uL (4.1-5.3) L 04/25/23 10:35 Hgb 10.3 g/dL (11.7-16.6) L 04/25/23 10:35 Hct 30.5 % (42.0-52.0) L 04/25/23 10:35 MCV 91.6 fl (80-94) 04/25/23 10:35 MCH 30.9 pg (28.0-34.0) 04/25/23 10:35 MCHC 33.8 g/dL (30.0-36.0) 04/25/23 10:35 RDW 13.6 % (12.1-15.1) 04/25/23 10:35 Plt Count 149 10^3/cmm (130-400) 04/25/23 10:35 MPV 9.3 fL (7.4-10.4) 04/25/23 10:35 Gran % Cancelled 04/24/23 07:02 Neut % (Auto) 94.2 % 04/25/23 10:35 Lymph % (Auto) 2.6 % 04/25/23 10:35 Woods % (Auto) 1.9 % 04/25/23 10:35 Eos % (Auto) 0.0 % 04/25/23 10:35 Baso % (Auto) 0.8 % 04/25/23 10:35 Neut # (Auto) 16.20 10^3/uL (1.8-7.7) H 04/25/23 10:35 Lymph # (Auto) 0.5 10^3/uL (0.8-4.8) L 04/25/23 10:35 Woods # (Auto) 0.3 10^3/uL (0.2-0.9) 04/25/23 10:35 Eos # (Auto) 0.0 10^3/uL (0.0-0.8) 04/25/23 10:35 Baso # (Auto) 0.1 10^3/uL (0.0-0.1) 04/25/23 10:35 Absolute Gran (auto) Cancelled 04/24/23 07:02 Nucleated RBC % (auto) 0 % 04/25/23 10:35 Total Counted 100 (0-100) 04/24/23 07:02 Atypical Lymphs % 4.0 % (0-5) 04/24/23 07:02 Absolute Neutrophils 11.6 10^3/cmm (1.4-6.5) H 04/24/23 07:02 Segmented Neutrophils 33 % 04/24/23 07:02 Abs Segm Neuts (Man) 4.6 10/cmm (1.6-7.1) 04/24/23 07:02 Band Neutrophils 50.0 % 04/24/23 07:02 Abs Band Neuts (Man) 7.0 10^3/cmm (0.0-1.2) H 04/24/23 07:02 Absolute Lymphocytes 1.0 10^3/cmm (1.2-3.4) L 04/24/23 07:02 Lymphocytes (Manual) 3 % 04/24/23 07:02 Monocytes (Manual) 3.0 % 04/24/23 07:02 Absolute Monocytes 0.4 10^3/cmm (0.1-0.6) 04/24/23 07:02 Eosinophils (Manual) 0 % 04/24/23 07:02 Absolute Eosinophils 0.0 10^3/cmm (0.0-0.7) 04/24/23 07:02 Basophils (Manual) 0.0 % 04/24/23 07:02 Absolute Basophils 0.0 10^3/cmm (0.0-0.2) 04/24/23 07:02 Metamyelocytes 5.0 % 04/24/23 07:02 Myelocytes 2.0 % 04/24/23 07:02 Nucleated RBCs # 0.0 /100WBC 04/25/23 10:35 Platelet Estimate Normal (Normal) 04/24/23 07:02 ESR 5 mm/hr (0-10) 04/24/23 07:02 Haptoglobin 158.0 mg/L (30-200) 04/24/23 07:02 PT 23.10 SECONDS (12.1-14.9) H 04/25/23 01:39 INR 1.97 (0.8-1.2) H 04/25/23 01:39 APTT 47.7 SECONDS (23.9-36.7) H D 04/25/23 01:39 Fibrinogen 531 mg/dL (174-498) H 04/25/23 01:39 Fibrin Degrad Products Neg, <10 ug/mL (NEG) 04/25/23 01:39 D-Dimer 2.04 ug/mIFEU (0-0.59) H 04/25/23 01:39 Specimen Type Arterial 04/25/23 04:30 Sample Site Not specified 04/25/23 04:30 ABG pH 7.44 (7.35-7.45) 04/25/23 04:30 ABG pCO2 35.2 mmHg (35-45) 04/25/23 04:30 ABG pO2 72.2 mmHg (80.0-100.0) L 04/25/23 04:30 ABG HCO3 23.6 mmol/L (22-26) 04/25/23 04:30 ABG O2 Saturation 99.0 04/24/23 05:40 ABG Base Excess -0.7 mmol/L (-2.0-2.0) 04/25/23 04:30 Mariano Test N/a 04/25/23 04:30 VBG pH 7.10 (7.32-7.42) L* 04/24/23 05:00 VBG pCO2 56.9 mmHg (41-51) H 04/24/23 05:00 VBG pO2 31.8 mmHg (25-40) 04/24/23 05:00 VBG HCO3 17.5 mmol/L (24-28) L 04/24/23 05:00 VBG Base Excess -12.8 mmol/L (-3.0-3.0) L 04/24/23 05:00 VBG Hematocrit 48.0 % (42-52) 04/24/23 05:00 A-a O2 Gradient 60.9 mmHg (5-10) H 04/24/23 05:40 Hematocrit 11.9 % (42-52) L 04/25/23 04:30 Hgb O2 Saturation 97.6 % (95-100) 04/24/23 05:40 Carboxyhemoglobin 0.8 %THgb (0.4-20.1) 04/24/23 05:40 Methemoglobin 0.6 % (0.4-1.5) 04/24/23 05:40 Total Hemoglobin 15.2 g/dL (14-18) 04/24/23 05:40 Sodium 135.0 mmol/L (131-143) 04/24/23 05:40 Potassium 5.3 mmol/L (3.5-5.0) H 04/24/23 05:40 Glucose 286.0 mg/dL (70-115) H 04/24/23 05:40 Ionized Calcium 1.0 mmol/L (1.1-1.4) L 04/24/23 05:40 O2 Delivery Device Vent 04/25/23 04:30 FiO2 50.0 % 04/25/23 04:30 Tidal Volume 0.50 04/25/23 04:30 PEEP 8.0 cmH20 04/25/23 04:30 Boring Machine Operator Production ID Kev 04/25/23 04:30 Sodium 137 mmol/L (136-145) 04/25/23 03:20 Potassium 4.0 mmol/L (3.5-5.1) 04/25/23 03:20 Chloride 100 mmol/L (98-107) 04/25/23 03:20 Carbon Dioxide 22 mmol/L (22-29) 04/25/23 03:20 Anion Gap 19.0 (5-19) 04/25/23 03:20 BUN 32 mg/dL (6-20) H 04/25/23 03:20 Creatinine 1.8 mg/dL (0.7-1.2) H 04/25/23 03:20 GFR Calculation 39.2 mL/min (90-130) L 04/25/23 03:20 Glucose 207 mg/dL (65-115) H 04/25/23 03:20 POC Glucose 177 mg/dL (70-110) H 04/25/23 08:13 Estimat Average Glucose 108 04/24/23 07:02 Hemoglobin A1c 5.4 % (4.0-6.0) 04/24/23 07:02 Calculated Osmolality 297 mOsm/kg (285-295) H 04/25/23 03:20 Lactic Acid 5.3 mmol/L (0.5-2.2) H* 04/24/23 08:40 Lactic Acid (Sepsis) 4.4 mmol/L (0.5-2.2) H* 04/24/23 11:19 Lactate 3.4 mmol/L (0.5-2.2) H 04/25/23 03:20 Calcium 6.6 mg/dL (8.5-10.5) L 04/25/23 03:20 Phosphorus 3.5 mg/dL (2.5-4.5) 04/25/23 03:20 Magnesium 1.6 mg/dL (1.7-2.3) L 04/25/23 03:20 Ferritin 6819 ng/mL (30-400) H 04/25/23 03:20 Total Bilirubin 1.6 mg/dL (0.15-1.2) H 04/25/23 03:20 Direct Bilirubin 1.70 mg/dL (0.00-0.30) H 04/24/23 07:02 Indirect Bilirubin 0.20 04/24/23 07:02 GGT 88 U/L (8-61) H 04/24/23 07:02 AST 683 U/L (0-40) H 04/25/23 03:20 ALT 1163 U/L (0-41) H 04/25/23 03:20 Alkaline Phosphatase 68 U/L (40-130) 04/25/23 03:20 Ammonia 63 umol/L (16-60) H 04/24/23 08:40 Lactate Dehydrogenase 348 U/L (135-225) H 04/24/23 07:02 Creatine Kinase 234 U/L (39-308) 04/25/23 03:20 CK-MB (CK-2) 1.3 ng/mL (0-10.4) 04/25/23 03:20 CK-MB (CK-2) Rel Index % (0.0-5.3) 04/25/23 03:20 Troponin T Baseline 12 ng/L (0-15) 04/23/23 18:34 Troponin T 120 Minute 12.37 ng/L (0-15) 04/23/23 20:37 Delta Troponin T 0.37 ABS# (0-10) 04/23/23 20:37 Troponin T Hi Sens 6Hr 32.34 ng/L (0-15) H 04/24/23 01:39 Troponin T Hi Sens 6Hr Delta 20.34 ng/L (0-12) H* 04/24/23 01:39 C-Reactive Protein 331.9 mg/L (0.0-4.9) H 04/25/23 03:20 NT-Pro-B Natriuret Pep 3339 pg/mL (0-125) H 04/25/23 03:20 Total Protein 5.2 g/dL (6.6-8.7) L 04/25/23 03:20 Albumin 3.2 g/dL (3.5-5.2) L 04/25/23 03:20 Globulin 2.0 g/dL (1.3-4.6) 04/25/23 03:20 Triglycerides 266 mg/dL (0-150) H 04/24/23 07:02 Cholesterol 110 mg/dL (0-200) 04/24/23 07:02 LDL Cholesterol, Calc 18 mg/dL (50-129) L 04/24/23 07:02 HDL Cholesterol 39 mg/dL (60-100) L 04/24/23 07:02 LDL/HDL Ratio 0.46 RATIO (0.00-3.22) 04/24/23 07:02 Cholesterol/HDL Ratio 2.82 mg/dL (1.0-5.00) 04/24/23 07:02 Amylase 32 U/L (28-100) 04/24/23 07:02 Lipase 16 U/L (13-60) 04/24/23 07:02 Procalcitonin > 100.00 ng/mL (0-0.5) H 04/25/23 03:20 TSH 0.44 uIU/mL (0.27-4.20) 04/24/23 07:02 Free T4 1.01 ng/dL (0.82-1.77) 04/24/23 07:02 Free T3 1.2 PG/ML (2.0-4.4) L 04/24/23 07:02 Random Cortisol 8.62 ug/dL (2.47-19.5) 04/24/23 07:02 Urine Color Yellow (Yellow) 04/24/23 00:20 Urine Appearance Clear (CLEAR) 04/24/23 00:20 Urine pH 5 (5-7) 04/24/23 00:20 Ur Specific Swisher 1.010 (1.005-1.030) 04/24/23 00:20 Urine Protein 2+ (Negative) H 04/24/23 00:20 Urine Glucose (UA) Norm (Normal) 04/24/23 00:20 Urine Ketones Negative (Negative) 04/24/23 00:20 Urine Blood 3+ (Negative) H 04/24/23 00:20 Urine Nitrate Negative (Negative) 04/24/23 00:20 Urine Bilirubin Neg (Negative) 04/24/23 00:20 Urine Urobilinogen Neg mg/dL (Negative) 04/24/23 00:20 Ur Leukocyte Esterase Negative (Negative) 04/24/23 00:20 Urine RBC 5-10 /hpf (0-2) H 04/24/23 00:20 Urine WBC None /hpf (0-5) 04/24/23 00:20 Ur Squamous Epith Cells None /hpf (0-5) 04/24/23 00:20 Amorphous Sediment Not Reportable 04/24/23 00:20 Urine Bacteria 1+ /hpf (NONE) H 04/24/23 00:20 Nasal Influ A H1 2008 PCR Not detected (NOT DETECT) 04/24/23 03:00 Serum Ketones Negative (Negative) 04/24/23 07:02 Adenovirus (PCR) Not detected (NOT DETECT) 04/24/23 03:00 C. pneumoniae DNA (PCR) Not detected (NOT DETECT) 04/24/23 03:00 Coronavirus 229E (PCR) Not detected (NOT DETECT) 04/24/23 03:00 Hepatitis A IgM Ab Non-reactive (Nonreactive) 04/24/23 00:20 Hep Bs Antigen Non-reactive (Nonreactive) 04/24/23 00:20 Hep B Core IgM Ab Non-reactive (Nonreactive) 04/24/23 00:20 Hepatitis C Antibody Non-reactive (Nonreactive) 04/24/23 00:20 HIV 1&2 Ab & HIV 1 Ag Non-reactive (Non-Reactiv) 04/24/23 00:20 HIV 1&2 Antibody Non-reactive (Non-Reactiv) 04/24/23 00:20 Human Metapneumovir PCR Not detected (NOT DETECT) 04/24/23 03:00 Influenza A (H1) PCR Not detected (NOT DETECT) 04/24/23 03:00 Influenza A (H3) PCR Not detected (NOT DETECT) 04/24/23 03:00 Influenza Type A (PCR) Not detected (NOT DETECT) 04/24/23 03:00 Influenza Type B (PCR) Detected (NOT DETECT) A 04/24/23 03:00 M. pneumoniae (PCR) Not detected (NOT DETECT) 04/24/23 03:00 Parainfluenza 1 (PCR) Not detected (NOT DETECT) 04/24/23 03:00 Parainfluenza 2 (PCR) Not detected (NOT DETECT) 04/24/23 03:00 Parainfluenza 3 (PCR) Not detected (NOT DETECT) 04/24/23 03:00 Parainfluenza 4 (PCR) Not detected (NOT DETECT) 04/24/23 03:00 RSV Type A (PCR) Not detected (NOT DETECT) 04/24/23 03:00 RSV Type B (PCR) Not detected (NOT DETECT) 04/24/23 03:00 Entero/Rhino (PCR) Not detected (NOT DETECT) 04/24/23 03:00 SARS-CoV-2 (PCR) Not detected (NOT DETECT) 04/24/23 03:00 SARS-CoV-2 Ag (Rapid) negative (Negative) 04/23/23 18:[address] 04/23/23 22:53 IMPRESSION: Unremarkable CT. Chest/Abdomen/Pelvis CT 04/23/23 22:57 IMPRESSION: 1. Dense aspiration versus pneumonia in the lower lobes and right upper lobe. 2. Multiple filling defects in the lower lobe bronchi could represent aspiration, mucus, or fluid. 3. Mild T7 compression fracture. IMPRESSION: 1. No acute findings. 2. Nonobstructing renal calculi. 3. Mild nonspecific periportal edema. This can be seen with volume overload and acute hepatitis. 4. Mild pericholecystic fluid with no visible gallstones. 5. Moderate L1 and minimal L5 compression fractures. COMMENTS: Consistent with the [employer]'s Incidental Findings Committee white paper (J Am Stephani Radiol 2018): Any incidental renal lesion less than 1 cm or classified as too small to characterize, or any incidental cystic renal lesion characterized as simple-appearing, is likely benign. No follow-up imaging is recommended for these lesions per consensus recommendations based on imaging criteria. Abdomen Ultrasound 04/24/23 07:31 IMPRESSION: 1. Diffusely thickened gallbladder wall. Gallbladder is mildly contracted with stones. No adjacent inflammation was noted on a recent CT. Consider acute cholecystitis. Other etiologies such as gallbladder wall thickening related to hepatocellular dysfunction. 2. No bile duct dilatation. 3. Mild hepatic steatosis. Renal Ultrasound 04/24/23 10:16 Impression: Negative bilateral renal ultrasound. Chest X-Ray 04/25/23 07:00 IMPRESSION: 1. Endotracheal tube with tip approximately 2.7 cm above the gerry. 2. Nasogastric tube with tip in the gastric antrum. 3. Right internal jugular central venous access device with tip in the SVC. 4. Right PICC with tip at the SVC/right atrial junction. 5. Persistent bibasilar opacities likely reflecting consolidation and/or effusion. KUB X-Ray 04/25/23 07:00 IMPRESSION: Nasogastric tube with tip in the gastric antrum. Recent Clincial Data Last Vital Signs Temp 98.3 F 04/25/23 08:30 Pulse 93 04/25/23 11:17 Resp 18 04/25/23 11:17 BP 103/70 04/25/23 08:30 Pulse Ox 93 04/25/23 11:17 O2 Del Method Mechanical Ventilation 04/25/23 11:17 O2 Flow Rate 2 04/23/23 20:03 FiO2 50 04/25/23 11:17 Vital Signs Temp Pulse Resp BP Pulse Ox O2 Del Method FiO2 04/25/23 11:17 93 18 93 Mechanical Ventilation 50 04/25/23 10:48 18 93 50 04/25/23 08:00 50 04/25/23 08:00 18 04/25/23 08:30 98.3 F 89 103/70 94 04/25/23 08:15 91 98/65 94 04/25/23 08:00 92 104/70 93 04/25/23 07:45 94 123/84 95 04/25/23 07:30 92 102/68 94 04/25/23 07:15 92 101/63 94 04/25/23 07:00 96 99/62 93 04/25/23 06:45 96 100/66 94 04/25/23 06:30 97 106/70 93 04/25/23 06:15 99 107/73 94 04/25/23 08:37 18 93 50 04/25/23 08:32 103 H 20 H 93 Mechanical Ventilation 50 04/25/23 06:08 18 93 50 04/25/23 06:00 93 106/68 93 04/25/23 05:45 93 104/68 94 04/25/23 06:08 93/57 04/25/23 06:00 50 04/25/23 05:30 92 105/68 94 04/25/23 05:30 98/61 04/25/23 05:00 99/61 04/25/23 04:30 95/59 04/25/23 04:00 115/67 04/25/23 03:30 104/64 04/25/23 03:00 102/63 04/25/23 02:30 104/64 04/25/23 02:00 104/64 04/25/23 01:30 106/65 04/25/23 05:35 95 04/25/23 05:15 95 103/68 94 04/25/23 05:00 93 106/69 94 04/25/23 04:45 93 106/69 94 04/25/23 05:30 98/61 04/25/23 01:00 103/64 04/25/23 04:30 93 105/67 94 04/25/23 04:15 94 112/73 94 04/25/23 04:00 98.7 F 94 115/75 95 Mechanical Ventilation 04/25/23 03:45 95 106/70 94 04/25/23 04:00 50 04/25/23 03:30 95 117/72 94 04/25/23 03:15 94 111/73 95 04/25/23 03:00 94 109/70 95 04/25/23 02:45 94 110/72 95 04/25/23 02:30 95 111/71 95 04/25/23 02:15 95 110/73 95 04/25/23 02:00 94 110/72 95 04/25/23 01:45 94 110/73 95 04/25/23 01:30 94 108/74 95 04/25/23 01:15 94 110/72 95 04/25/23 01:00 94 109/72 95 04/25/23 00:45 93 111/72 95 04/25/23 00:30 94 114/75 95 04/25/23 00:15 94 112/74 95 04/25/23 02:00 50 04/25/23 00:30 110/68 04/25/23 03:41 18 94 50 Intake & Output/Weight 04/23/23 04/24/23 04/25/23 04/26/23 06:59 06:59 06:59 06:59 Intake Total 5078.361 / 5078.361 5771.851 / 5771.851 250 / 250 Output Total 500 / 500 1600 / 1600 Balance 4578.361 / 4578.361 4171.851 / 4171.851 250 / 250 Weight 98 kg 100.5 kg Vitals Last Vital Signs Temp 98.3 F 04/25/23 08:30 Pulse 93 04/25/23 11:17 Resp 18 04/25/23 11:17 BP 103/70 04/25/23 08:30 Pulse Ox 93 04/25/23 11:17 O2 Del Method Mechanical Ventilation 04/25/23 11:17 O2 Flow Rate 2 04/23/23 20:03 FiO2 50 04/25/23 11:17 TS Medications Medications Acetaminophen (Acetaminophen 325 Mg Tablet) 650 mg PO Q4H PRN PRN Reason: MILD PAIN OR INCREASE TEMP Albuterol/Ipratropium (Ipratropium-Albuterol 3 Ml Neb) 3 ml INHALATION QID.RESPIRATORY DEDE Last Admin: 04/25/23 11:17 Dose: 3 ml Dextrose (Dextrose 50% Syringe 50 Ml) 50 ml IVP PRN PRN; Protocol PRN Reason: hypoglycemia protocol Dextrose (Dextrose 50% Syringe 50 Ml) 25 ml IVP ONCE PRN; Protocol PRN Reason: hypoglycemia protocol Enoxaparin Sodium (Enoxaparin 100 Mg/Ml Syringe) 100 mg 1 mg/kg (100 mg) SUBCUT Q12H DEDE Last Admin: 04/25/23 08:20 Dose: 100 mg Glucagon (Glucagon 1 Mg/Ml Inj 1 Ml) 1 mg IM ONCE PRN; Protocol PRN Reason: Adult Acute Hypoglycemia Prot. Hydrocortisone Sodium Succinate (Hydrocortisone 100 Mg/2 Ml Sdv) 100 mg IVP Q12H DEDE Last Admin: 04/25/23 06:19 Dose: 100 mg Norepinephrine Bitartrate 4 mg (/ Dextrose) 254 mls @ 0 mls/hr IV .Q0M DEDE; Protocol Last Titration: 04/24/23 11:25 Dose: Infused Fentanyl 2,500 mcg/ Sodium (Chloride) 250 mls @ 0 mls/hr IV .Q0M DEDE; Protocol Last Admin: 04/25/23 01:30 Dose: 100 mcg/hr, 10 mls/hr Epinephrine HCl 2.5 mg/ Sodium (Chloride) 252.5 mls @ 0 mls/hr IV .Q0M DEDE; Protocol Last Titration: 04/24/23 09:55 Dose: Infused Meropenem 1,000 mg/ Sodium (Chloride) 50 mls @ 100 mls/hr IV Q8H [facility]; Protocol Last Infusion: 04/25/23 06:43 Dose: Infused Vancomycin/PEG/[place]/Lysine/Water (Vancocin) 1,500 mg in 300 mls @ 200 mls/hr IV Q18H DEDE Last Admin: 04/25/23 10:29 Dose: 200 mls/hr Vasopressin 40 unit/ Sodium (Chloride) 40 mls @ 0.03 mls/min IV CONT DEDE Last Admin: 04/24/23 23:40 Dose: Not Given Levofloxacin/Dextrose (Levaquin-D5w) 750 mg in 150 mls @ 100 mls/hr IV Q24H [facility]; Protocol Last Infusion: 04/25/23 00:53 Dose: Infused Propofol (Diprivan) 1,000 mg in 100 mls @ 0 mls/hr IV .Q0M DEDE; Protocol Last Titration: 04/24/23 14:02 Dose: Infused Albumin Human (Albumin) 25 g in 100 mls @ 60 mls/hr IV Q8H DEDE Last Infusion: 04/25/23 08:08 Dose: Infused Midazolam HCl 100 mg/ Sodium (Chloride) 100 mls @ 0 mls/hr IV .Q0M DEDE; Protocol Last Admin: 04/25/23 01:30 Dose: 4 mg/hr, 4 mls/hr Epinephrine HCl 5 mg/ Sodium (Chloride) 505 mls @ 0 mls/hr IV .Q0M DEDE; Protocol Last Titration: 04/24/23 23:25 Dose: 0 mcg/kg/min, 0 mls/hr Norepinephrine Bitartrate 8 mg (/ Dextrose) 508 mls @ 0 mls/hr IV .Q0M DEDE; Protocol Last Titration: 04/25/23 06:40 Dose: 3 mcg/min, 11.43 mls/hr Doxycycline Hyclate 100 mg/ (Sodium Chloride) 100 mls @ 100 mls/hr IV Q12H DEDE; Protocol Last Infusion: 04/25/23 09:32 Dose: Infused Dextrose (D5w) 500 mls @ 100 mls/hr IV ONCE PRN; Protocol PRN Reason: Adult Acute Hypoglycemia Prot Insulin Human Lispro (Insulin Lispro 100 Unit/1 Ml) 0 unit SUBCUT TIDWM DEDE; Protocol Last Admin: 04/25/23 08:18 Dose: 2 unit Ondansetron HCl (Ondansetron 2 Mg/Ml Sdv 2 Ml) 4 mg IVP Q6H PRN PRN Reason: NAUSEA AND VOMITING Pantoprazole Sodium (Pantoprazole 40 Mg Sdv) 40 mg IVP Q12H DEDE Last Admin: 04/24/23 23:03 Dose: 40 mg Sucralfate (Sucralfate 1 Gm Tablet) 1 gm PO Q12H DEDE Last Admin: 04/24/23 23:03 Dose: 1 gm Discontinued Medications Acetaminophen (Acetaminophen 500 Mg Tablet) 1,000 mg PO ONCE ONE Stop: 04/23/23 19:01 Last Admin: 04/23/23 19:33 Dose: 1,000 mg Albuterol Sulfate (Albuterol 2.5 Mg/3 Ml Neb) 2.5 mg INHALATION ONCE ONE Stop: 04/23/23 19:37 Last Admin: 04/23/23 20:01 Dose: 2.5 mg Dexamethasone (Dexamethasone 10 Mg/Ml Inj) 10 mg IVP ONCE ONE Stop: 04/23/23 19:37 Last Admin: 04/23/23 19:42 Dose: 10 mg Etomidate (Etomidate 2 Mg/Ml Inj Sdv 10 Ml) 20 mg IVP NOW ONE Stop: 04/24/23 00:16 Last Admin: 04/24/23 02:29 Dose: Not Given Heparin Sodium (Porcine) (Heparin 5,000 Unit/Ml Inj 1 Ml) 5,000 unit SUBCUT Q12H DEDE Last Admin: 04/24/23 00:53 Dose: 5,000 unit Heparin Sodium (Porcine) (Heparin 5,000 Unit/Ml Inj 1 Ml) 0 unit IV PRN PRN; Protocol PRN Reason: Heparin weight-base protocol Hydromorphone HCl (Hydromorphone 1 Mg/Ml Inj 1 Ml) 0.5 mg IVP ONCE ONE Stop: 04/23/23 20:58 Last Admin: 04/23/23 21:05 Dose: 0.5 mg Sodium Chloride (Sodium Chloride 0.9%) 1,000 mls @ 999 mls/hr IV .Q1H1M DEDE Stop: 04/23/23 20:45 Last Admin: 04/24/23 02:28 Dose: Not Given Sodium Chloride (Sodium Chloride 0.9%) 1,000 mls @ 999 mls/hr IV .Q1H1M ONE Stop: 04/23/23 19:35 Last Infusion: 04/23/23 23:30 Dose: Infused Ceftriaxone Sodium 1,000 mg/ (Sodium Chloride) 50 mls @ 100 mls/hr IV ONCE ONE; Protocol Stop: 04/23/23 19:29 Last Infusion: 04/23/23 23:30 Dose: Infused Azithromycin 500 mg/ Sodium (Chloride) 250 mls @ 250 mls/hr IV ONCE ONE; Protocol Stop: 04/23/23 19:59 Last Infusion: 04/23/23 23:30 Dose: Infused Vasopressin 100 unit/ Sodium (Chloride) 100 mls @ 0 mls/hr IV .Q0M DEDE; Protocol Last Titration: 04/24/23 03:49 Dose: 0.03 unit/min, 1.8 mls/hr Propofol (Diprivan) Confirm Administered Dose 1,000 mg in 100 mls @ as directed .ROUTE .STK-MED ONE Stop: 04/23/23 21:54 Last Infusion: 04/24/23 09:21 Dose: Infused Sterile Water (Water) Confirm Administered Dose 10 mls @ as directed .ROUTE .[facility]-MED ONE Stop: 04/23/23 22:08 Last Admin: 04/24/23 02:29 Dose: Not Given Sodium Chloride (Sodium Chloride 0.9%) 1,000 mls @ 150 mls/hr IV .Q6H40M [facility] Last Admin: 04/24/23 06:29 Dose: Not Given Vancomycin HCl / Sodium (Chloride) 250 mls @ 0 mls/hr QLH3CAMF PROTOCOL DEDE; Protocol Sodium Chloride (Sodium Chloride 0.9%) 500 mls @ 999 mls/hr IV .Q31M ONE Stop: 04/23/23 23:46 Last Infusion: 04/23/23 23:30 Dose: 0 mls/hr Sodium Bicarbonate 150 meq/ (Dextrose) 1,150 mls @ 50 mls/hr IV .Q23H DEDE Last Infusion: 04/25/23 05:01 Dose: 0 mls/hr Heparin Sodium/Sodium Chloride (Heparin Drip) 25,000 unit in 500 mls @ 0 mls/hr IV .Q0M DEDE; Protocol Magnesium Sulfate (Magnesium Sulfate Premix) 2 gm in 50 mls @ 50 mls/hr IV ONCE ONE Stop: 04/24/23 08:29 Last Infusion: 04/24/23 09:21 Dose: Infused Acetaminophen (Acetaminophen) 1,000 mg in 100 mls @ 400 mls/hr IV Q8H PRN PRN Reason: fevers Stop: 04/25/23 09:14 Acetaminophen (Acetaminophen) 1,000 mg in 100 mls @ 400 mls/hr IV ONCE ONE Stop: 04/24/23 17:15 Last Infusion: 04/24/23 17:31 Dose: Infused Magnesium Sulfate (Magnesium Sulfate Premix) 2 gm in 50 mls @ 50 mls/hr IV ONCE ONE Stop: 04/25/23 09:28 Last Infusion: 04/25/23 10:24 Dose: Infused Iohexol (Iohexol 350 Mg/Ml 500 Ml Btl (Per Ml)) 0 ml IV ONCE ONE Stop: 04/23/23 23:27 Last Admin: 04/23/23 23:27 Dose: 100 ml Ipratropium [place] (Ipratropium 0.5 Mg/2.5 Ml Neb) 0.5 mg INHALATION ONCE ONE Stop: 04/23/23 19:37 Last Admin: 04/23/23 20:01 Dose: 0.5 mg Midazolam HCl (Midazolam 1 Mg/Ml Inj 2 Ml) Confirm Administered Dose 2 mg .ROUTE .STK-MED ONE Stop: 04/24/23 07:40 Midazolam HCl (Midazolam 1 Mg/Ml Inj 2 Ml) 2 mg IVP ONCE ONE Stop: 04/24/23 07:43 Last Admin: 04/24/23 07:46 Dose: 2 mg Ondansetron HCl (Ondansetron 2 Mg/Ml Sdv 2 Ml) 4 mg IVP ONCE ONE Stop: 04/23/23 21:26 Last Admin: 04/23/23 21:28 Dose: 4 mg Pantoprazole Sodium (Pantoprazole 40 Mg Sdv) 40 mg IVP DAILY DEDE Last Admin: 04/24/23 08:07 Dose: 40 mg Sodium Bicarbonate (Sodium Bicarbonate 8.4% 1 Meq/Ml 50ml Syr) 50 meq IVP ONCE ONE Stop: 04/24/23 06:01 Last Admin: 04/24/23 06:33 Dose: Not Given Sodium Bicarbonate (Sodium Bicarbonate 1 Meq/Ml Sdv 50ml) 50 meq IVP ONCE ONE Stop: 04/24/23 06:16 Last Admin: 04/24/23 06:17 Dose: 50 meq Sodium Bicarbonate (Sodium Bicarbonate 1 Meq/Ml Sdv 50ml) 50 meq IVP ONCE ONE Stop: 04/24/23 10:54 Last Admin: 04/24/23 11:21 Dose: 50 meq Succinylcholine Chloride (Succinylcholine 20 Mg/Ml Sdv 10ml) 130 mg IVP NOW ONE Stop: 04/24/23 00:16 Last Admin: 04/24/23 02:30 Dose: Not Given Vecuronium [place] (Vecuronium 10 Mg Sdv) 10 mg IVP ONCE ONE Stop: 04/24/23 00:16 Last Admin: 04/24/23 02:30 Dose: Not Given Allergies Penicillins Allergy (Verified 04/24/23 08:23) Unknown Home Medications fluticasone 100 mcg-salmeterol 50 mcg/dose blistr powdr for inhalation (Advair Diskus) 1 inh inhalation BID #60 ea 01/15/23 [Rx Confirmed 04/24/23] ibuprofen 800 mg tablet 800 mg PO Q8H PRN pain #20 tabs 04/17/23 [Rx Confirmed 04/24/23] methocarbamol 500 mg tablet 1,000 mg PO Q8H #30 tabs 04/17/23 [Rx Confirmed 04/24/23] methylprednisolone 4 mg tablets in a dose pack (Medrol (Ector)) See Rx Instructions PO .COMPLEX #21 ea 04/17/23 [Rx Confirmed 04/24/23] albuterol sulfate 2.5 mg/3 mL (0.083 %) solution for nebulization 2.5 mg inhalation Q6H PRN Shortness Of Breath 04/24/23 [History Confirmed 04/24/23] albuterol sulfate 90 mcg/actuation aerosol inhaler (Ventolin HFA) 2 puff inhalation Q6H PRN Shortness Of Breath 04/24/23 [History Confirmed 04/24/23] levalbuterol HCl 1.25 mg/3 mL solution for nebulization 1.25 mg inhalation Q6H PRN Bronchospasm 04/24/23 [History Confirmed 04/24/23] prednisone 20 mg tablet See Rx Instructions .Route .COMPLEX 04/24/23 [History Confirmed 04/24/23] Discharge Plan Discharge Condition: Stable Prescriptions: No Action fluticasone propion-salmeterol [Advair Diskus] 100-50 mcg/dose blister with device 1 inh inhalation BID Qty: 60 11RF methocarbamol 500 mg tablet 1,000 mg PO Q8H Qty: 30 0RF ibuprofen 800 mg tablet 800 mg PO Q8H PRN (Reason: pain) Qty: 20 0RF methylprednisolone [Medrol (Ector)] 4 mg tablets,dose pack See Rx Instructions .ROUTE .COMPLEX Qty: 21 0RF Rx Instructions: orally per package directions prednisone 20 mg tablet See Rx Instructions .ROUTE .COMPLEX Rx Instructions: 60mg on day 1,2,3 40mg on day 4,5 20mg on day 6,7 Xopenex 1.25 mg/3 mL Solution For Nebulization 1.25 mg INHALATION Q6H PRN (Reason: Bronchospasm) Ventolin HFA 90 mcg/actuation HFA aerosol inhaler 2 puff INHALATION Q6H PRN (Reason: Shortness Of Breath) albuterol sulfate 2.5 mg /3 mL (0.083 %) Solution For Nebulization 2.5 mg INHALATION Q6H PRN (Reason: Shortness Of Breath) Discharge Orders: Transfer Out of Facility (Order); Ordered 04/25/23 Ordered By: Kings Barnes Referrals: Dorian Savage FNP [Primary Care Provider] - Patient Instructions: Opioid Safety Transfer Attestations Time Spent in Transfer Care: critical care time Critical Care Time (min): 60 Quality Metrics Clinical Quality Measures [ No reported AMI, CVA or VTE this stay] Coding Level of Care Code Acute Code for Chg Fwd Diagnoses Acute respiratory failure with hypoxia J96.01 Aspiration pneumonia J69.0 Aspiration pneumonitis J69.0 Acute kidney injury N17.9 Lactic acid acidosis E87.20 Metabolic acidosis E87.20 Hyperglycemia R73.9 Transaminitis R74.01 Acute cholecystitis K81.0 Ascending cholangitis K83.09 Septic shock A41.9; R65.21 Sepsis A41.9 Pneumonia J18.9 Hypoalbuminemia E88.09 NSTEMI (non-ST elevated myocardial infarction) I21.4 Bandemia D72.825 Multiorgan failure
--- NOTE | 2023-04-25 12:41 | PC.NURSE ---
Patient accepted to [facility] room 498-A. Family aware. Awaiting air ambulance
[2023-04-25 12:49] LABS: Glucose Point of Care 211 mg/dL (70-110)
[2023-04-25] MEDS: pantoprazole 40 mg SDV IVP (13:01)
[2023-04-25] MEDS: sucralfate 1 gm Tablet PO (13:01)
--- NOTE | 2023-04-25 14:09 | PC.NURSE ---
Patient left via air evac at 1405.
[2023-04-25 14:30] LABS: Methicillin-Resist S.aureu PCR NOT DETECTED (NOT DETECTED)
== END 2023-04-25 14:05 | disposition short-term general hospital (02) | DRG 871 ==
LOC: ER 20:50 → ICU 21:00
PROVIDERS: Admitting Provider Internal Medicine; Emergency Provider Emergency Medicine; PCP Nurse Practitioner Family; Visit Provider Family Medicine
DX: A41.9 Sepsis, unspecified organism (principal); I21.4 Non-ST elevation (NSTEMI) myocardial infarction; J96.01 Acute respiratory failure with hypoxia; R65.21 Severe sepsis with septic shock; J69.0 Pneumonitis due to inhalation of food and vomit; N17.9 Acute kidney failure, unspecified; E87.20 Acidosis, unspecified; K83.09 Other cholangitis; J45.909 Unspecified asthma, uncomplicated; Z87.891 Personal history of nicotine dependence; Z28.310 Unvaccinated for COVID-19; K81.0 Acute cholecystitis; G89.29 Other chronic pain; M54.9 Dorsalgia, unspecified; M25.551 Pain in right hip; R73.9 Hyperglycemia, unspecified; E83.42 Hypomagnesemia; E87.5 Hyperkalemia; R74.01 Elevation of levels of liver transaminase levels
CPT/HCPCS: 36415; 36416; 36569; 51702; 71045; 71275; 73700; 74018; 74177; 76705; 76770; 80051; 80053; 80061; 80074; 81001; 82009; 82140; 82150; 82247; 82248; 82330; 82533; 82550; 82553; 82728; 82803; 82805; 82962; 82977; 83010; 83036; 83605; 83615; 83690; 83735; 83880; 84100; 84145; 84439; 84443; 84481; 84484; 85007; 85025; 85362; 85378; 85384; 85610; 85651; 85730; 86140; 86403; 87040; 87070; 87077; 87186; 87205; 87426; 87449; 87486; 87581; 87633; 87641; 87806; 93005; 93306; 94002; 94003; 94640; 94660; 94664; 94799; 96365; 96366; 96367; 96372; 96375; 96376; 99291; C9113; J0131; J0171; J0456; J0696; J1100; J1170; J1644; J1650; J1720; J1815; J1956; J2185; J2250; J2405; J2704; J3010; J3370; J3475; J3490; J7030; J7040; J7050; J7060; J7070; J7613; J7644; P9046; Q9967

== ENCOUNTER 2023-05-12 07:31 | Outpatient (CLI) | payer MEDICAID, SELFPAY ==
--- NOTE | 2023-05-12 08:00 | MR_ITS ---
WS: [id number] MRI LUMBAR SPINE NONCONTRAST TECHNIQUE: Sagittal T1, T2 and STIR imaging. Axial T1 and T2 imaging. CLINICAL INFORMATION: M54.9 - Dorsalgia, unspecified COMPARISON: MRI lumbar 018 FINDINGS: Mild lumbar curve. Chronic anterior wedging at L1. Mild compression superior endplate T12 has a chron ic appearance. Endplate Schmorl's nodes at T12 and L1. No high-grade central canal stenosis. L1-L2: Normal. L2-L3: No significant disc bulging. Mild facet arthropathy. Spinal canal and foramen are patent. L3-L4: No significant disc bulging. Moderate facet arthropathy. Spinal canal and foramen are patent. L4-L5: Mild annular bulging. Impingement on the traversing LEFT L5 nerve root LEFT subarticular reces s. Mild LEFT foraminal narrowing. RIGHT foramen is patent. Moderate facet arthropathy. L5-S1: Mild disc bulging with a shallow central disc protrusion. Disc desiccation. Spinal canal and f oramen are patent. Mild facet arthropathy. Adrenal glands are normal. Visualized pelvic bony structures: Normal. Paravertebral soft tissues: Normal. MR/MR lumbar spine wo con* [id number] IMPRESSION: Overall no significant changes since 2018 1. Mild compression with chronic anterior wedging at T12 and L1 unchanged sinc e 2018. No acute compression fractures. 2. Mild annular bulging L4-L5 with slight impingement traversing LEFT L5 nerve root. Mild LEFT L4-L5 foraminal narrowing. 3. Shallow central disc protrusion L5-S1 with slight encroachment on the trave rsing S1 nerve roots. Spinal canal is patent. 4. Moderate facet arthropathy L3-L4 and L4-L5.
== END 2023-05-12 07:32 | disposition home or self-care (01) ==
PROVIDERS: PCP Nurse Practitioner Family; Visit Provider Orthopaedic Surgery
DX: M48.55XA Collapsed vertebra, not elsewhere classified, thoracolumbar region, initial encounter for fracture (principal); M54.50 Low back pain, unspecified; G89.29 Other chronic pain; M51.36 Other intervertebral disc degeneration, lumbar region; M51.27 Other intervertebral disc displacement, lumbosacral region; M47.816 Spondylosis without myelopathy or radiculopathy, lumbar region
CPT/HCPCS: 72148

== ENCOUNTER 2023-05-12 14:56 | Emergency (ER) | payer OTHER, MEDICAID, SELFPAY ==
[2023-05-12 15:01] VITALS: BP 91/64; PULSE 69; RESP 16; TEMP 36.7; O2SAT 97; BMI 28.0
[2023-05-12 15:52] VITALS: BP 92/63; PULSE 71; RESP 16; TEMP 37.1; O2SAT 94
--- NOTE | 2023-05-12 17:42 | XRR_ITS ---
PROCEDURE INFORMATION: Exam: XR Chest Exam date and time: 05/12/2023 5:49 PM Age: 58 years old Clinical indication: Other: Dizzy; Additional info: History of pneumonia TECHNIQUE: Imaging protocol: Radiologic exam of the chest. Views: 1 view. COMPARISON: CR (CHEST, ) 04/25/2023 6:41 AM FINDINGS: Lungs: Overall improve marked improved aeration in the lungs with resolution of pulmonary edema and improving aeration in the right and left lower lobes. There is residual left lower lobe and left lingular airspace disease. Patchy nodular opacities are also seen in the right lower lobe, findings may represent persistent pneumonia. Pleural spaces: Small left pleural effusion, decreased in size. No pneumothorax. Heart/Mediastinum: Stable mild enlargement of the cardiac silhouette. Mediastinal contours are unremarkable. Bones/joints: Unremarkable for age. XR/XR chest 1V portable [id number] IMPRESSION: 1. Overall improve marked improved aeration in the lungs with resolution of pulmonary edema and improving aeration in the right and left lower lobes. There is residual left lower lobe and left lingular airspace disease. Patchy nodular opacities are also seen in the right lower lobe, findings may represent persistent pneumonia. Continued follow-up to ensure complete resolution is recommended. 2. Small left pleural effusion, decreased in size. 3. Incidental/nonacute findings are listed in the report.
--- NOTE | 2023-05-12 17:48 | ED_ITS ---
HPI - Dizziness General: Chief Complaint: Dizziness Stated Complaint: dizzy, headache Time Seen by Provider: 05/12/23 17:42 History of Present Illness: HPI Narrative: 58-year-old male patient comes in today with dizziness and low blood pressure. Patient has recent history of double pneumonia with sepsis. Since arriving home patient has been improving and had lost significant water weight. Patient reports when he was discharged he weighed 111 kg and now is back down to 86 kg. Patient denies any fever or pain except back pain and radiating down his right leg. Patient today had a MRI to investigate his pain radiating into his right lower leg. Patient appears nontoxic. Patient appears in mild pain. Patient is on 3 different blood pressure medications. Associated symptoms: Denies chest pain, nausea or vomiting Review of Systems General: Reports: 10 or more systems reviewed and unremarkable except in HPI and below Const: Denies: fever(s) Card: Denies: chest pain Resp: Denies: dyspnea GI: Denies: nausea or vomiting : Denies: difficulty urinating Skin/Breast: Denies: rash Endo: Denies: polyuria or polydipsia PFSH ED PFSH: Medical History Asthma No pertinent past medical history Surgical History No pertinent past surgical history Family History Father CAD (coronary artery disease), Onset Age: 60 Cancer, Onset Age: 60 prostate Diabetes Lung disease asthma Mother Diabetes Hypertension Lung disease Stroke Denies family history of Chronic kidney disease (CKD) Social History Smoking and tobacco status: former smoker Quit status (tobacco): has quit using tobacco Year quit tobacco: 2006 Alcohol intake: never Substance/Drug Use: never Adopted: No Caregiver/support person: No Lives independently: No Household members: spouse Marital status: service: No Current occupational status: employed Sexually active: Yes Do you think of yourself as: Straight/Heterosexual Current gender identity: Male Physical Exam Const: COMMON NORMALS: alert HENMT: COMMON NORMALS: normocephalic HEAD & SCALP: normocephalic Neck/C-Spine: COMMON NORMALS: full ROM Resp: COMMON NORMALS: normal respiratory effort and clear to auscultation bilaterally AUSCULTATION: clear to auscultation bilaterally Cardio: COMMON NORMALS: regular rate and regular rhythm RATE: regular rate RHYTHM: regular rhythm GI: COMMON NORMALS: Soft to palpation PALPATION: Yes Soft to palpation and Yes Tenderness to palpation present (GI) Details: RUQ : COMMON NORMALS: Yes no CVA tenderness BLADDER/KIDNEY EXAM: Yes no CVA tenderness Back/Pelvis: COMMON NORMALS: no CVA tenderness Extremity: COMMON NORMALS: no pedal edema Neuro: SENSORIUM/ORIENTATION: Yes alert Skin: COMMON NORMALS: turgor normal GENERAL SKIN EXAM: turgor normal Course Vital Signs: Vital signs: Vital Signs Temperature 98.7 F 05/12/23 15:52 Pulse Rate 71 05/12/23 15:52 Respiratory Rate 16 05/12/23 15:52 Blood Pressure 92/63 05/12/23 15:52 Pulse Oximetry 94 05/12/23 15:52 Oxygen Delivery Me thod Room Air 05/12/23 15:52 MDM - Dizziness Medical Decision Making 58-year-old male patient comes in today for complaints of dizziness. Patient larios d taken his blood pressure medication and shortly after taking it he felt really dizzy like he was going to pass out. Patient had recently has been discharged from [facility] after pneumonia with sepsis. On exam patient has no signs of edema in the lower extremities. Heart rates regular. Blood pressure is in the 90s systolic. Patient is afebrile. Patient reports no new symptoms. Differential diagnosis includes but not limited to adverse drug effect, hypoglycemia, anxiety about health. Chest x-ray notes a decreasing left pleural effusion and improvement in pneumonia. CBC was unremarkable. CMP noted creatinine of 2.0, sodium of 135 and a GFR of 34-35. D-dimer was elevated at 6.4, urinalysis was unremarkable. Did a CTA of the chest to rule out pulmonary embolism, included abdomen due to patient's right upper quadrant abdominal discomfort. CT verified the pleural effusion and resolving pneumonia that was noted on the chest x-ray. CT of the abdomen showed some renal calculi but no obstruction and no other significant abnormalities. Believe the patient is probably having some dizziness and some mild orthostatic hypotension due to medications. Recommended decreasing carvedilol to 1/2 tablet twice a day and having reevaluation in 2 to 3 days for other consideration by primary care. Patient reported understanding and agreed to plan. Recommended follow-up with p ulmonologist due to pleural effusion and resolving pneumonia for further evaluation and treatment as needed. Case management was requested to assist with follow-up appointment. Lab Data 05/12/23 17:57 05/12/23 17:57 Radiology Impressions Chest X-Ray 05/12/23 17:42 IMPRESSION: 1. Overall improve marked improved aeration in the lungs with resolution of pulmonary edema and improving aeration in the right and left lower lobes. There is residual left lower lobe and left lingular airspace disease. Patchy nodular opacities are also seen in the right lower lobe, findings may represent persistent pneumonia. Continued follow-up to ensure complete resolution is recommended. 2. Small left pleural effusion, decreased in size. 3. Incidental/nonacute findings are listed in the report. Chest/Abdomen/Pelvis CT 05/12/23 19:05 IMPRESSION: 1. Overall improved aeration in the lungs with residual airspace disease in the posterior right upper lobe and left lower lobe the may represent persistent pneumonia versus atelectasis. Few nodular opacities are also seen in the lateral right lower lobe that again may represent residual atelectasis or pneumonia, possible pulmonary nodules cannot be ruled out however. Continued radiographic follow-up to ensure complete resolution of these findings is recommended. Multiple calcified granulomas in the right lower lobe. 2. No evidence for pulmonary embolism. 3. Small left pleural effusion. 4. Incidental/nonacute findings are listed in the report. IMPRESSION: 1. Stable bilateral nonobstructing renal stones. 2. Incidental/nonacute findings are listed in the report. COMMENTS: Consistent with the [place] [employer]'s Incidental Findings Committee white paper (J Am Stephani Radiol 2018): Any incidental renal lesion less than 1 cm or classified as too small to characterize, or any incidental cystic renal lesion characterized as simple-appearing, is likely benign. No follow-up imaging is recommended for these lesions per consensus recommendations based on imaging criteria. Laboratory Results WBC 7.0 10^3/uL (4.0-10.0) 05/12/23 17:57 RBC 4.02 10^6/uL (4.1-5.3) L 05/12/23 17:57 Hgb 11.8 g/dL (11.7-16.6) 05/12/23 17:57 Hct 35.6 % (42.0-52.0) L 05/12/23 17:57 MCV 88.6 fl (80-94) 05/12/23 17:57 MCH 29.4 pg (28.0-34.0) 05/12/23 17:57 MCHC 33.1 g/dL (30.0-36.0) 05/12/23 17:57 RDW 11.9 % (12.1-15.1) L 05/12/23 17:57 Plt Count 323 10^3/cmm (130-400) 05/12/23 17:57 MPV 9.2 fL (7.4-10.4) 05/12/23 17:57 Neut % (Auto) 56.5 % 05/12/23 17:57 Lymph % (Auto) 27.8 % 05/12/23 17:57 [place] % (Auto) 10.8 % 05/12/23 17:57 Eos % (Auto) 3.6 % 05/12/23 17:57 Baso % (Auto) 1.0 % 05/12/23 17:57 Neut # (Auto) 3.96 10^3/uL (1.8-7.7) 05/12/23 17:57 Lymph # (Auto) 2.0 10^3/uL (0.8-4.8) 05/12/23 17:57 [place]dwell # (Auto) 0.8 10^3/uL (0.2-0.9) 05/12/23 17:57 Eos # (Auto) 0.3 10^3/uL (0.0-0.8) 05/12/23 17:57 Baso # (Auto) 0.1 10^3/uL (0.0-0.1) 05/12/23 17:57 Nucleated RBC % (auto) 0 % 05/12/23 17:57 Nucleated RBCs # 0.0 /100WBC 05/12/23 17:57 D-Dimer 6.43 ug/mIFEU (0-0.59) H 05/12/23 17:57 Sodium 135 mmol/L (136-145) L 05/12/23 17:57 Potassium 4.6 mmol/L (3.5-5.1) 05/12/23 17:57 Chloride 99 mmol/L (98-107) 05/12/23 17:57 Carbon Dioxide 24 mmol/L (22-29) 05/12/23 17:57 Anion Gap 16.6 (5-19) 05/12/23 17:57 BUN 26 mg/dL (6-20) H 05/12/23 17:57 Creatinine 2.0 mg/dL (0.7-1.2) H 05/12/23 17:57 GFR Calculation 34.7 mL/min (90-130) L 05/12/23 17:57 Glucose 99 mg/dL (65-115) 05/12/23 17:57 Calculated Osmolality 285 mOsm/kg (285-295) 05/12/23 17:57 Calcium 8.8 mg/dL (8.5-10.5) 05/12/23 17:57 Magnesium 1.7 mg/dL (1.7-2.3) 05/12/23 17:57 Total Bilirubin 0.5 mg/dL (0.15-1.2) 05/12/23 17:57 AST 20 U/L (0-40) 05/12/23 17:57 ALT 30 U/L (0-41) 05/12/23 17:57 Alkaline Phosphatase 69 U/L (40-130) 05/12/23 17:57 NT-Pro-B Natriuret Pep 282 pg/mL (0-125) H 05/12/23 17:57 Total Protein 9.0 g/dL (6.6-8.7) H 05/12/23 17:57 Albumin 3.9 g/dL (3.5-5.2) 05/12/23 17:57 Globulin 5.1 g/dL (1.3-4.6) H 05/12/23 17:57 Urine Color Rebecca (Yellow) 05/12/23 18:30 Urine Appearance Hazy (CLEAR) A 05/12/23 18:30 Urine pH 5 (5-7) 05/12/23 18:30 Ur Specific [place] 1.020 (1.005-1.030) 05/12/23 18:30 Urine Protein 1+ (Negative) H 05/12/23 18:30 Urine Glucose (UA) Norm (Normal) 05/12/23 18:30 Urine Ketones 1+ (Negative) H 05/12/23 18:30 Urine Blood Neg (Negative) 05/12/23 18:30 Urine Nitrate Negative (Negative) 05/12/23 18:30 Urine Bilirubin Neg (Negative) 05/12/23 18:30 Urine Urobilinogen Norm mg/dL (Negative) 05/12/23 18:30 Ur Leukocyte Esterase Negative (Negative) 05/12/23 18:30 Urine RBC 0-4 /hpf (0-2) H 05/12/23 18:30 Urine WBC 5-10 /hpf (0-5) H 05/12/23 18:30 Ur Squamous Epith Cells 0-4 /hpf (0-5) H 05/12/23 18:30 Amorphous Sediment 2+ /hpf 05/12/23 18:30 Urine Bacteria Not Reportable 05/12/23 18:30 Hyaline Casts 5-10 /lpf H 05/12/23 18:30 Fine Granular Casts 0-4 /lpf H 05/12/23 18:30 Urine Mucus 2+ /hpf 05/12/23 18:30 EKG Data EKG 1: Interpretation: 1850, EKG shows a sinus rhythm with a regular rate at [address] abnormality is noted, no significant ST elevation is noted, no other ectopy is noted, no prior exam was immediately available for comparison. Discharge Plan Discharge Patient Disposition: Home Clinical Impression: Orthostatic hypotension, Pleural effusion Condition: Stable Prescriptions: No Action fluticasone propion-salmeterol [Advair Diskus] 100-50 mcg/dose blister with device 1 inh inhalation BID Qty: 60 11RF methocarbamol 500 mg tablet 1,000 mg PO Q8H Qty: 30 0RF ibuprofen 800 mg tablet 800 mg PO Q8H PRN (Reason: pain) Qty: 20 0RF methylprednisolone [Medrol (Ector)] 4 mg tablets,dose pack See Rx Instructions .ROUTE .COMPLEX Qty: 21 0RF Rx Instructions: orally per package directions prednisone 20 mg tablet See Rx Instructions .ROUTE .COMPLEX Rx Instructions: 60mg on day 1,2,3 40mg on day 4,5 20mg on day 6,7 Xopenex 1.25 mg/3 mL Solution For Nebulization 1.25 mg INHALATION Q6H PRN (Reason: Bronchospasm) Ventolin HFA 90 mcg/actuation HFA aerosol inhaler 2 puff INHALATION Q6H PRN (Reason: Shortness Of Breath) albuterol sulfate 2.5 mg /3 mL (0.083 %) Solution For Nebulization 2.5 mg INHALATION Q6H PRN (Reason: Shortness Of Breath) Discharge Orders: Discharge ED (Routine); Ordered 05/12/23 Ordered By: José Manuel Bradford Referrals: Dorian Savage FNP [Primary Care Provider] - Discharge Diet: Usual diet Discharge Activity: Increase activity as tolerated Patient Instructions: Hypotension (ED) Activity Restrictions/Additional Instructions: Decrease carvedilol to 1/2 tablet twice a day. Follow-up with primary care in 2 to 3 days for recheck of blood pressure. Drink plenty of water. Case management will contact you regarding follow-up appointment with lightning rod installer. Return to emergency room for high fever, increased shortness of breath, or new concerns. Coding Level of Care Code ED Linux Admin Engineer for Grace Zuñiga
[2023-05-12 18:20] LABS: Basophils # 0.1 10^3/uL (0.0-0.1); Eosinophils # 0.3 10^3/uL (0.0-0.8); Eosinophils % 3.6 %; Hematocrit 35.6 % (42.0-52.0); Hemoglobin 11.8 g/dL (11.7-16.6); Lymphocytes % 27.8 %; Mean Corpuscular HGB Conc 33.1 g/dL (30.0-36.0); Mean Corpuscular Hemoglobin 29.4 pg (28.0-34.0); Mean Corpuscular Volume 88.6 fl (80-94); Mean Platelet Volume 9.2 fL (7.4-10.4); Monocytes # 0.8 10^3/uL (0.2-0.9); Monocytes % 10.8 %; Neutrophils # 3.96 10^3/uL (1.8-7.7); Neutrophils % 56.5 %; Nucleated Red Blood Cells % 0 %; Platelet Count 323 10^3/cmm (130-400); Red Blood Count 4.02 10^6/uL (4.1-5.3); Red Cell Distribution Width 11.9 % (12.1-15.1)
[2023-05-12 18:45] LABS: Add Urine Microscopic? YES; Bilirubin Urine Neg (Negative); Blood Urine Neg (Negative); Glucose Urine UA Norm (Normal); Ketones Urine 1+ (Negative); Leukocyte Esterase Urine Negative (Negative); Nitrate Urine Negative (Negative); Protein Urine 1+ (Negative); RBC Urine 0-4 /hpf (0-2); Urine Appearance Hazy (CLEAR); Urine Color Amber (Yellow); Urobilinogen Urine Norm (Negative); pH Urine 5 (5-7)
[2023-05-12 18:46] LABS: Add Urine Culture? No; Amorphous Sediment Urine 2+ /hpf; Fine Granular Casts Urine 0-4 /lpf; Mucus Urine 2+ /hpf; Squamous Epithelial Cell Urine 0-4 /hpf (0-5)
[2023-05-12 18:49] LABS: Alanine Aminotransferase 30 U/L (0-41); Albumin Level 3.9 g/dL (3.5-5.2); Alkaline Phosphatase 69 U/L (40-130); Aspartate Amino Transferase 20 U/L (0-40); Blood Urea Nitrogen 26 mg/dL (6-20); Calcium 8.8 mg/dL (8.5-10.5); Carbon Dioxide 24 mmol/L (22-29); Chloride 99 mmol/L (98-107); Globulin 5.1 g/dL (1.3-4.6); Glomerular Filtration Rate 34.7 mL/min (90-130); Glucose 99 mg/dL (65-115); Magnesium 1.7 mg/dL (1.7-2.3); NT Pro B Type Natriuretic Pept 282 pg/mL (0-125); Osmolality Calculated 285 mOsm/kg (285-295); Sodium 135 mmol/L (136-145); Total Bilirubin 0.5 mg/dL (0.15-1.2)
[2023-05-12 18:55] LABS: D Dimer 6.43 ug/mIFEU (0-0.59)
[2023-05-12 18:58] LABS: Anion Gap 16.6 (5-19); Potassium 4.6 mmol/L (3.5-5.1)
--- NOTE | 2023-05-12 18:58 | ECG_ITS ---
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 Measurements Intervals [place] Rate: 72 P: 57 SC: 143 QRS: 15 QRSD: 81 T: -53 QT: 403 QTc: 443 Interpretive Statements SINUS RHYTHM NONSPECIFIC T-WAVE ABNORMALITY Compared to ECG 04/24/2023 02:30:01 T-wave abnormality now present Electronically Signed On 05-13-2023 13:54:35 CDT by Huseyin Richey M.D. [id number]
--- NOTE | 2023-05-12 19:05 | CTR_ITS ---
PROCEDURE INFORMATION: Exam: CTA Chest With Contrast Exam date and time: 05/12/2023 7:40 PM Age: 58 years old Clinical indication: Abdominal pain; Acute; Other: Elevated d dimer; Additional info: Elevated d dimer, ruq pain TECHNIQUE: Imaging protocol: Computed tomographic angiography of the chest with contrast. Exam focused on the arteries. 3D rendering (Not supervised by radiologist): MIP and/or 3D reconstructed images were created by the technologist. Radiation optimization: All CT scans at this facility use at least one of these dose optimization techniques: automated exposure control; mA and/or kV adjustment per patient size (includes targeted exams where dose is matched to clinical indication); or iterative reconstruction. Contrast material: OMNI 350; Contrast volume: 100 ml; Contrast route: INTRAVENOUS (IV); REPORTING DATA: Count of CT and Cardiac NM exams in prior 12 months: This patient has received 2 known CTs and 0 known cardiac nuclear medicine studies in the 12 months prior to the current study. COMPARISON: CT angio chest w abd pel w con 04/23/2023 11:14 PM RADIATION DOSE METRICS: Total DLP (mGy-cm): 1073 FINDINGS: Pulmonary arteries: No filling defects in the pulmonary arteries to suggest pulmonary embolism. Aorta: Mild atherosclerotic changes in the visualized arteries. No evidence for aortic aneurysm. Evaluation for aortic dissection is limited due to the phase of contrast-enhancement. Trachea: Tracheobronchial structures are patent. Lungs: Overall improved aeration in the lungs with residual airspace disease in the posterior right upper lobe and left lower lobe the may represent persistent pneumonia versus atelectasis. Few nodular opacities are also seen in the lateral right lower lobe that again may represent residual atelectasis or pneumonia, possible pulmonary nodules cannot be ruled out however. Pleural spaces: Small left pleural effusion. No pneumothorax. Heart: No cardiomegaly. No pericardial effusion. Mediastinal space: No mediastinal hematoma. No pneumomediastinum. Lymph nodes: No lymphadenopathy. Bones/joints: [id number] multilevel degenerative changes in the visualized spine. Old, mild compression deformity of T7. Soft tissues: No acute abnormality in the extrathoracic soft tissues. PROCEDURE INFORMATION: Exam: CT Abdomen And Pelvis With Contrast Exam date and time: 05/12/2023 7:40 PM Age: 58 years old Clinical indication: Abdominal pain; Acute; Other: Elevated d dimer; Additional info: Elevated d dimer, ruq pain TECHNIQUE: Imaging protocol: Computed tomography of the abdomen and pelvis with contrast. Sagittal and coronal reformatted images were created and reviewed. Radiation optimization: All CT scans at this facility use at least one of these dose optimization techniques: automated exposure control; mA and/or kV adjustment per patient size (includes targeted exams where dose is matched to clinical indication); or iterative reconstruction. Contrast material: OMNI 350; Contrast volume: 100 ml; Contrast route: INTRAVENOUS (IV); REPORTING DATA: Count of CT and Cardiac NM exams in prior 12 months: This patient has received 2 known CTs and 0 known cardiac nuclear medicine studies in the 12 months prior to the current study. COMPARISON: CT angio chest w abd pel w con 04/23/2023 11:14 PM RADIATION DOSE METRICS: Total DLP (mGy-cm): 1073 FINDINGS: Liver: The liver is unremarkable. Gallbladder and bile ducts: The gallbladder is unremarkable. No biliary ductal dilatation. Pancreas: The pancreas is unremarkable. No pancreatic ductal dilatation. Spleen: The spleen is unremarkable. Adrenal glands: The right and left adrenal glands are unremarkable. Kidneys and ureters: Nonobstructing stones in both right and left kidneys are stable. The right kidney stone measures 1.8 mm. Multiple stones in the left kidney, the largest measures 6.9 mm. Subcentimeter hypodense focus in the left kidney that is too small to characterize, however likely represents a small cyst. 2 cysts in the left kidney are stable, the larger measures 2.1 cm. The right and left ureters are unremarkable. Stomach and bowel: No obstruction. No mucosal thickening. Appendix: The appendix is visualized and is unremarkable. No findings to suggest acute appendicitis. Intraperitoneal space: No free intraperitoneal air. No ascites. No loculated fluid collections to suggest an abscess. Vasculature: Mild atherosclerotic changes in the visualized arteries. No evidence for aortic aneurysm or aortic dissection. Hepatic veins, portal veins, splenic vein, and SMV are patent. Lymph nodes: No lymphadenopathy. Urinary bladder: The bladder is incompletely filled, which can limit evaluation. No focal abnormality in the bladder however. Reproductive: Unremarkable as visualized. Bones/joints: Degenerative changes in the spine and hips. Old, moderate compression deformity of L1 with focal kyphosis of the spine at this level. Soft tissues: No acute abnormality in the extra-abdominal soft tissues. CT/CT angio chest w abd pel w con IMPRESSION: 1. Overall improved aeration in the lungs with residual airspace disease in the posterior right upper lobe and left lower lobe the may represent persistent pneumonia versus atelectasis. Few nodular opacities are also seen in the lateral right lower lobe that again may represent residual atelectasis or pneumonia, possible pulmonary nodules cannot be ruled out however. Continued radiographic follow-up to ensure complete resolution of these findings is recommended. Multiple calcified granulomas in the right lower lobe. 2. No evidence for pulmonary embolism. 3. Small left pleural effusion. 4. Incidental/nonacute findings are listed in the report. IMPRESSION: 1. Stable bilateral nonobstructing renal stones. 2. Incidental/nonacute findings are listed in the report. COMMENTS: Consistent with the [place] [employer]'s Incidental Findings Committee white paper (J Am Stephani Radiol 2018): Any incidental renal lesion less than 1 cm or classified as too small to characterize, or any incidental cystic renal lesion characterized as simple-appearing, is likely benign. No follow-up imaging is recommended for these lesions per consensus recommendations based on imaging criteria.
[2023-05-12] MEDS: iohexol 350 mg/mL 500 mL Btl (per mL) IV (19:50)
[2023-05-12 20:46] VITALS: BP 121/76; PULSE 67; RESP 16; O2SAT 97
--- NOTE | 2023-05-13 08:10 | DCPLANNER ---
Addendum entered by Mariana Mcgowan 07/27/23 16:04: Patient did attend appointment scheduled with pulmonology Addendum entered by Mariana Mcgowan 05/14/23 11:06: Patient has a follow up appointment scheduled for Thursday, July 22, 2023 at 9:[address] Sánchez at [facility]. Original Note: automotive general sales manager had message to schedule a follow up appointment for patient with pulmonology. automotive general sales manager sent patients information to the front office staff at [facility]. Patients information will be printed and reviewed. Clinic will call patient with appointment information.
== END 2023-05-12 20:47 | disposition home or self-care (01) ==
PROVIDERS: Emergency Provider Nurse Practitioner Family; PCP Nurse Practitioner Family
DX: I95.1 Orthostatic hypotension (principal); J90 Pleural effusion, not elsewhere classified; Z87.891 Personal history of nicotine dependence
CPT/HCPCS: 36415; 71045; 71275; 74177; 80053; 81001; 83735; 83880; 85025; 85378; 93005; 99285; Q9967

== ENCOUNTER → 2023-05-15 11:41 | Outpatient (BNVA) | payer MEDICAID, SELFPAY | PROVIDERS: PCP Nurse Practitioner Family; Visit Provider Nurse Practitioner | DX: I10 Essential (primary) hypertension (principal) | CPT/HCPCS: 80053 ==

== ENCOUNTER 2023-07-09 16:44 | Emergency (ER) | payer MEDICAID, SELFPAY ==
--- NOTE | 2023-07-09 16:45 | XRR_ITS ---
PROCEDURE INFORMATION: Exam: XR Chest Exam date and time: 07/09/2023 4:55 PM Age: 58 years old Clinical indication: Chest wall pain; Additional info: Cp TECHNIQUE: Imaging protocol: Radiologic exam of the chest. Views: 1 view. COMPARISON: 1. CR (CHEST, ) 05/12/2023 5:[address] angio chest w abd pel w con 05/12/2023 7:40 PM FINDINGS: Lungs: Calcified right lower lobe pulmonary nodule is unchanged with comparison CT chest. Minimal left basilar atelectasis or consolidation is again seen. Pleural spaces: Unremarkable. No pleural effusion. No pneumothorax. Heart/Mediastinum: Stable heart size. Bones/joints: Stable bones. XR/XR chest 1V portable [id number] IMPRESSION: Minimal persistent left lower lobe infiltrate or atelectasis. Correlate for pneumonia.
[2023-07-09 17:21] VITALS: BMI 28.0
[2023-07-09 17:25] VITALS: BP 120/81; PULSE 64; RESP 16; TEMP 36.4; O2SAT 97
[2023-07-09 17:29] LABS: Basophils # 0.1 10^3/uL (0.0-0.1); Basophils % 0.9 %; Eosinophils # 0.4 10^3/uL (0.0-0.8); Eosinophils % 8.1 %; Hematocrit 39.7 % (42.0-52.0); Hemoglobin 14.1 g/dL (11.7-16.6); Lymphocytes # 2.3 10^3/uL (0.8-4.8); Lymphocytes % 42.8 %; Mean Corpuscular HGB Conc 35.5 g/dL (30.0-36.0); Mean Corpuscular Hemoglobin 30.3 pg (28.0-34.0); Mean Corpuscular Volume 85.4 fl (80-94); Mean Platelet Volume 8.7 fL (7.4-10.4); Monocytes # 0.4 10^3/uL (0.2-0.9); Monocytes % 7.8 %; Neutrophils # 2.17 10^3/uL (1.8-7.7); Neutrophils % 40.2 %; Nucleated Red Blood Cells % 0 %; Platelet Count 294 10^3/cmm (130-400); Red Blood Count 4.65 10^6/uL (4.1-5.3); Red Cell Distribution Width 14.4 % (12.1-15.1); White Blood Count 5.4 10^3/uL (4.0-10.0)
--- NOTE | 2023-07-09 17:30 | ECG_ITS ---
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 Measurements Intervals [place] Rate: 80 P: 61 LA: 155 QRS: 0 QRSD: 86 T: 29 QT: 372 QTc: 431 Interpretive Statements SINUS RHYTHM Compared to ECG 05/12/2023 18:58:50 T-wave abnormality no longer present Electronically Signed On 07-10-2023 9:26:12 CDT by Huseyin Richey M.D. [id number]
--- NOTE | 2023-07-09 17:44 | W.ED.CHESTPA ---
HPI - Chest Pain General: Chief Complaint: Chest Pain Stated Complaint: chest pains Time Seen by Provider: 07/09/23 17:40 Source: patient Mode of arrival: ambulatory Limitations: no limitations History of Present Illness: 58-year-old male states that today has been having some chest pain that he states is a sharp pain is now a dull ache in the center of his chest. States been going on throughout the day his pain is currently a 3 out of 10 he states that right his left shoulder. He denies any worsening improving factors denies any shortness of breath he had septic shock last month from a pneumonia had to be flown to [place]. He denies any fevers had a very mild cough no vomiting no diarrhea. Associated symptoms: Deny abdominal pain, dyspnea, fever(s), nausea or vomiting Review of Systems Const: Denies: fever(s), chills, body aches or change in appetite ENMT: Denies: throat pain or dental pain Card: Reports: chest pain Resp: Denies: dyspnea GI: Denies: abdominal pain, nausea, vomiting or diarrhea : Denies: dysuria Musc: Denies: neck pain or back pain Skin/Breast: Denies: rash Neuro: Denies: headache(s) PFSH ED PFSH: Medical History Asthma No pertinent past medical history Surgical History No pertinent past surgical history Family History Father CAD (coronary artery disease), Onset Age: 60 Cancer, Onset Age: 60 prostate Diabetes Lung disease asthma Mother Diabetes Hypertension Lung disease Stroke Denies family history of Chronic kidney disease (CKD) Social History Smoking and tobacco status: former smoker Quit status (tobacco): has quit using tobacco Year quit tobacco: 2006 Alcohol intake: never Substance/Drug Use: never Adopted: No Caregiver/support person: No Lives independently: No Household members: spouse Marital status: service: No Current occupational status: employed Sexually active: Yes Do you think of yourself as: Straight/Heterosexual Current gender identity: Male Physical Exam Const: COMMON NORMALS: no acute distress, patient oriented x3 and healthy appearing HENMT: COMMON NORMALS: normocephalic and atraumatic HEAD & SCALP: normocephalic and atraumatic Neck/C-Spine: COMMON NORMALS: full ROM and supple Chest: COMMONS NORMALS: normal inspection of the chest and normal palpation of entire chest wall Resp: COMMON NORMALS: normal respiratory effort, No retractions, No use of accessory muscles and clear to auscultation bilaterally AUSCULTATION: clear to auscultation bilaterally Cardio: COMMON NORMALS: regular rate, regular rhythm and No murmurs present (Cardio) RATE: regular rate RHYTHM: regular rhythm GI: COMMON NORMALS: Normal to inspection, nondistended, normoactive bowel sounds present, Soft to palpation, non-tender and no masses PALPATION: Yes Soft to palpation Extremity: COMMON NORMALS: normal to inspection and full ROM Neuro: COMMON NORMALS: patient oriented x3, moves all extremities and no focal motor deficits Psych: COMMON NORMALS: mental status grossly normal, Normal thought process present and cooperative THOUGHT PROCESS: Normal thought process present Skin: COMMON NORMALS: no rashes or lesions noted and no wounds GENERAL SKIN EXAM: no rashes or lesions noted Course Vital Signs: Vital signs: Vital Signs Temperature 97.6 F 07/09/23 17:25 Pulse Rate 58 L 07/09/23 21:42 Respiratory Rate 18 07/09/23 20:30 Blood Pressure 112/78 07/09/23 21:42 Pulse Oximetry 97 07/09/23 21:42 Oxygen Delivery Me thod Room Air 07/09/23 21:42 MDM - Chest Pain Medical Decision Making Patient presents with chest pain that is since resolved he has no shortness of breath nausea or diaphoresis his troponins here are normal he has no signs of acute coronary syndrome no signs of dissection or pulm embolism we will get him follow-up with cardiology he is to return if worsening he understands agrees to plan. Medical Records I reviewed the patient's medical records. Lab Data I reviewed the patient's lab results. 07/09/23 17:19 07/09/23 17:19 Radiology Impressions Chest X-Ray 07/09/23 16:45 IMPRESSION: Minimal persistent left lower lobe infiltrate or atelectasis. Correlate for pneumonia. Laboratory Results WBC 5.4 10^3/uL (4.0-10.0) 07/09/23 17:19 RBC 4.65 10^6/uL (4.1-5.3) 07/09/23 17:19 Hgb 14.1 g/dL (11.7-16.6) 07/09/23 17:19 Hct 39.7 % (42.0-52.0) L 07/09/23 17:19 MCV 85.4 fl (80-94) 07/09/23 17:19 MCH 30.3 pg (28.0-34.0) 07/09/23 17:19 MCHC 35.5 g/dL (30.0-36.0) 07/09/23 17:19 RDW 14.4 % (12.1-15.1) 07/09/23 17:19 Plt Count 294 10^3/cmm (130-400) 07/09/23 17:19 MPV 8.7 fL (7.4-10.4) 07/09/23 17:19 Neut % (Auto) 40.2 % 07/09/23 17:19 Lymph % (Auto) 42.8 % 07/09/23 17:19 [place] % (Auto) 7.8 % 07/09/23 17:19 Eos % (Auto) 8.1 % 07/09/23 17:19 Baso % (Auto) 0.9 % 07/09/23 17:19 Neut # (Auto) 2.17 10^3/uL (1.8-7.7) 07/09/23 17:19 Lymph # (Auto) 2.3 10^3/uL (0.8-4.8) 07/09/23 17:19 [place] # (Auto) 0.4 10^3/uL (0.2-0.9) 07/09/23 17:19 Eos # (Auto) 0.4 10^3/uL (0.0-0.8) 07/09/23 17:19 Baso # (Auto) 0.1 10^3/uL (0.0-0.1) 07/09/23 17:19 Nucleated RBC % (auto) 0 % 07/09/23 17:19 Nucleated RBCs # 0.0 /100WBC 07/09/23 17:19 Sodium 139 mmol/L (136-145) 07/09/23 17:19 Potassium 3.9 mmol/L (3.5-5.1) 07/09/23 17:19 Chloride 102 mmol/L (98-107) 07/09/23 17:19 Carbon Dioxide 28 mmol/L (22-29) 07/09/23 17:19 Anion Gap 12.9 (5-19) 07/09/23 17:19 BUN 12 mg/dL (6-20) 07/09/23 17:19 Creatinine 0.6 mg/dL (0.7-1.2) L 07/09/23 17:19 GFR Calculation 139.4 mL/min (90-130) H 07/09/23 17:19 Glucose 100 mg/dL (65-115) 07/09/23 17:19 Calculated Osmolality 288 mOsm/kg (285-295) 07/09/23 17:19 Calcium 9.2 mg/dL (8.5-10.5) 07/09/23 17:19 Total Bilirubin 0.6 mg/dL (0.15-1.2) 07/09/23 17:19 AST 17 U/L (0-40) 07/09/23 17:19 ALT 19 U/L (0-41) 07/09/23 17:19 Alkaline Phosphatase 79 U/L (40-130) 07/09/23 17:19 Troponin T Baseline 11 ng/L (0-15) 07/09/23 17:19 Troponin T 120 Minute 11.63 ng/L (0-15) 07/09/23 19:19 Delta Troponin T 0.63 ABS# (0-10) 07/09/23 19:19 Total Protein 6.9 g/dL (6.6-8.7) 07/09/23 17:19 Albumin 4.1 g/dL (3.5-5.2) 07/09/23 17:19 Globulin 2.8 g/dL (1.3-4.6) 07/09/23 17:19 EKG Data EKG 1: I personally reviewed and interpreted this EKG as follows: EKG interpretation date: 07/09/23 EKG interpretation time: 18:54 Interpretation: nsr hr [address] or t wave abnormalities qrs 97 qtc 394 Discharge Plan Discharge Patient Disposition: Home Clinical Impression: Chest pain Condition: Stable Prescriptions: No Action fluticasone propion-salmeterol [Advair Diskus] 100-50 mcg/dose blister with device 1 inh inhalation BID Qty: 60 11RF carvedilol 6.25 mg tablet 3.125 mg PO BID Qty: 60 0RF Rx Instructions: must administer with a meal/food ibuprofen 800 mg tablet 800 mg PO Q8H PRN (Reason: pain) Qty: 20 0RF Xopenex 1.25 mg/3 mL Solution For Nebulization 1.25 mg INHALATION Q6H PRN (Reason: Bronchospasm) Ventolin HFA 90 mcg/actuation HFA aerosol inhaler 2 puff INHALATION Q6H PRN (Reason: Shortness Of Breath) albuterol sulfate 2.5 mg /3 mL (0.083 %) Solution For Nebulization 2.5 mg INHALATION Q6H PRN (Reason: Shortness Of Breath) Discharge Orders: Discharge ED (Routine); Ordered 07/09/23 Ordered By: Kwesi Kaur Referrals: Huseyin Richey M.D [Physician] - 1-3 days Dorian Savage FNP [Primary Care Provider] - Discharge Diet: Advance as tolerated Discharge Activity: Resume usual activity Patient Instructions: Chest Pain (ED) Coding Level of Care Code ED Printed Circuit Board Pcb Draftsman for Grace Zuñiga
[2023-07-09 17:53] LABS: Alanine Aminotransferase 19 U/L (0-41); Albumin Level 4.1 g/dL (3.5-5.2); Alkaline Phosphatase 79 U/L (40-130); Anion Gap 12.9 (5-19); Aspartate Amino Transferase 17 U/L (0-40); Blood Urea Nitrogen 12 mg/dL (6-20); Calcium 9.2 mg/dL (8.5-10.5); Carbon Dioxide 28 mmol/L (22-29); Chloride 102 mmol/L (98-107); Globulin 2.8 g/dL (1.3-4.6); Glomerular Filtration Rate 139.4 mL/min (90-130); Glucose 100 mg/dL (65-115); Osmolality Calculated 288 mOsm/kg (285-295); Potassium 3.9 mmol/L (3.5-5.1); Sodium 139 mmol/L (136-145); Total Bilirubin 0.6 mg/dL (0.15-1.2); Total Protein 6.9 g/dL (6.6-8.7)
[2023-07-09] MEDS: aspirin 81 mg Chew Tablet 324 MG PO (17:54)
[2023-07-09 18:05] LABS: Creatinine Clr Calc Pharmacy 149.5146; Troponin(5th) Baseline 11 ng/L (0-15)
--- NOTE | 2023-07-09 18:45 | ECG_ITS ---
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 Measurements Intervals [place] Rate: 60 P: 52 [place]: 152 QRS: 37 QRSD: 97 T: -4 QT: 394 QTc: 394 Interpretive Statements SINUS RHYTHM WITH SINUS ARRHYTHMIA NONSPECIFIC T-WAVE ABNORMALITY Compared to ECG 07/09/2023 17:30:17 T-wave abnormality now present Electronically Signed On 07-10-2023 9:29:43 CDT by Huseyin Richey M.D. [id number]
--- NOTE | 2023-07-09 19:30 | PC.NURSE ---
ASSUMED CARE OF PATIENT AT 1900.
[2023-07-09 19:41] VITALS: BP 113/77; PULSE 69; O2SAT 98
[2023-07-09 20:30] VITALS: BP 105/68; PULSE 60; RESP 18; O2SAT 97
[2023-07-09 21:16] LABS: Troponin 5 2HR 11.63 ng/L (0-15); Troponin 5 2HR Delta 0.63 ABS# (0-10)
--- NOTE | 2023-07-09 21:24 | ECG_ITS ---
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 Measurements Intervals [place] Rate: 57 P: 39 [place]: 142 QRS: 22 QRSD: 95 T: 4 QT: 392 QTc: 384 Interpretive Statements SINUS BRADYCARDIA WITH SINUS ARRHYTHMIA NONSPECIFIC T-WAVE ABNORMALITY Compared to ECG 07/09/2023 18:54:14 Sinus rhythm no longer present T-wave abnormality still present Electronically Signed On 07-10-2023 9:25:29 CDT by Huseyin Richey M.D. [email or web address]/[id number]
[2023-07-09 21:42] VITALS: BP 112/78; PULSE 58; O2SAT 97
--- NOTE | 2023-07-10 08:10 | DCPLANNER ---
Addendum entered by Mariana Mcgowan 07/15/23 10:47: Patient had a follow up appointment scheduled with heart care - patient did attend appointment. Original Note: manager nursing had message to schedule a follow up appointment for patient with cardiology. manager nursing sent patients information to the front office staff at heart care. Patients information will be printed and reviewed. Clinic will call patient with appointment information.
== END 2023-07-09 21:43 | disposition home or self-care (01) ==
PROVIDERS: Emergency Provider Emergency Medicine; PCP Nurse Practitioner Family
DX: R07.9 Chest pain, unspecified (principal); Z87.891 Personal history of nicotine dependence
CPT/HCPCS: 36415; 71045; 80053; 84484; 85025; 93005; 99285

== ENCOUNTER → 2023-07-16 11:45 | Outpatient (BNVA) | payer MEDICAID, SELFPAY | PROVIDERS: PCP Nurse Practitioner Family; Visit Provider Anesthesiology Pain Medicine | DX: M25.561 Pain in right knee (principal) | CPT/HCPCS: 73562 ==

== ENCOUNTER → 2023-07-20 10:28 | Outpatient (BNVA) | payer MEDICAID, SELFPAY | PROVIDERS: PCP Nurse Practitioner Family; Visit Provider Internal Medicine Pulmonary Disease | DX: J30.2 Other seasonal allergic rhinitis (principal); J44.9 Chronic obstructive pulmonary disease, unspecified; J18.9 Pneumonia, unspecified organism; G47.30 Sleep apnea, unspecified | CPT/HCPCS: 36415; 82785; 86003 ==

== ENCOUNTER 2023-08-06 13:16 | Outpatient (CLI) | payer MEDICAID, SELFPAY ==
--- NOTE | 2023-08-06 13:30 | CT_ITS ---
WS: [id number] CT chest wo con [id number] HISTORY: check for resolution of prev pneumonia TECHNIQUE: Axial imaging performed through the thorax. Coronal and sagittal reformats are submitted. All CT scans at [facility] use at least one of these dose optimization techniques: automated exposure control; mA and/or kV adjustment per patient size (includes targeted exams where dose is mat ched to clinical indication); or iterative reconstruction. CONTRAST: None DLP: 459.97 mGy.cm COMPARISON: 05/12/2023, 05/08/2013 Lungs and central airway: Continued improvement in aeration throughout both lungs since 04/23/2023 and 05/12/2023. Mild atelectasis along the superior RIGHT major fissure. Linear areas of residual scarrin g or subsegmental atelectasis at the lung bases. Marked improvement since the prior study. No dense c onsolidations. 5 mm nodule LEFT lung base. Partially calcified nodules probably benign measuring 19 x 14 mm in the RIGHT lower lobe. Pleura: Completely resolved LEFT pleural effusion. Heart and pericardium: Normal size heart with no pericardial effusion. Mediastinum and kala: Small mediastinal and hilar lymph nodes. No new or enlarging lymph nodes. Vessels: Minimal atherosclerosis aorta. Normal sized pulmonary artery. Chest wall and lower neck: No soft tissue masses. Upper abdomen: Small hiatal hernia. No adrenal mass. Osseous structures: Mild compression fractures including T7, T12 and L1. IMPRESSION: 1. Significant improvement in aeration since 05/12/2023. Minimal residual pleural thickening or atelec tasis along the RIGHT major fissure and at the lung bases. 2. 5 mm noncalcified nodule at the LEFT lung base was probably being obscured by lung disease on the prior study. This nodule does appear to be present in 2012. 3. Resolved LEFT pleural effusion.
== END 2023-08-06 13:17 | disposition home or self-care (01) ==
LOC: RAD 13:17
PROVIDERS: PCP Nurse Practitioner Family; Visit Provider Internal Medicine Pulmonary Disease
DX: J18.9 Pneumonia, unspecified organism (principal); R91.1 Solitary pulmonary nodule
CPT/HCPCS: 71250

== ENCOUNTER 2023-08-18 15:18 | Emergency (ER) | payer MEDICAID, SELFPAY ==
[2023-08-18 15:21] VITALS: BP 154/112; PULSE 95; RESP 18; TEMP 36.8; O2SAT 94
--- NOTE | 2023-08-18 15:22 | ECG_ITS ---
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 Measurements Intervals [place] Rate: 92 P: 61 [place]: 174 QRS: 23 QRSD: 80 T: 57 QT: 344 QTc: 427 Interpretive Statements SINUS RHYTHM Compared to ECG 07/09/2023 21:24:31 Sinus bradycardia no longer present Sinus arrhythmia no longer present T-wave abnormality no longer present Electronically Signed On 08-18-2023 16:35:00 CDT by Huseyin Richey M.D. [id number]
--- NOTE | 2023-08-18 15:38 | W.ED.ARRPALP ---
HPI - Arrhythmia/Palpitations General: Chief Complaint: Arrhythmia/Palpitations Stated Complaint: SVT Time Seen by Provider: 08/18/23 15:19 Source: patient Mode of arrival: ambulatory Limitations: no limitations History of Present Illness: 58-year-old male states he had a history of arrhythmia SVT in the past he states that today he felt like his heart was racing having some fatigue along with having a weird feeling in his chest he went to the clinic he was in SVT his heart rate was in the 180s they tried to salvage maneuvers was unsuccessful patient was given 6 mg adenosine and EMS he had converted by EMS his heart rate here is normal currently states his symptoms all resolved he feels much improved. Associated symptoms: Deny nausea or vomiting Review of Systems Const: Denies: fever(s) or chills ENMT: Denies: throat pain or dental pain Card: Reports: palpitations; Denies: chest pain Resp: Denies: dyspnea GI: Denies: abdominal pain, nausea, vomiting or diarrhea Musc: Denies: neck pain or back pain Skin/Breast: Denies: rash Neuro: Denies: headache(s) PFSH ED PFSH: Medical History Asthma No pertinent past medical history Surgical History No pertinent past surgical history Family History Father CAD (coronary artery disease), Onset Age: 60 Cancer, Onset Age: 60 prostate Diabetes Lung disease asthma Mother Diabetes Hypertension Lung disease Stroke Denies family history of Chronic kidney disease (CKD) Social History Smoking and tobacco status: former smoker Quit status (tobacco): has quit using tobacco Year quit tobacco: 2006 Alcohol intake: never Substance/Drug Use: never Adopted: No Caregiver/support person: No Lives independently: No Household members: spouse Marital status: service: No Current occupational status: employed Sexually active: Yes Do you think of yourself as: Straight/Heterosexual Current gender identity: Male Physical Exam Const: COMMON NORMALS: no acute distress, patient oriented x3 and healthy appearing HENMT: COMMON NORMALS: normocephalic and atraumatic HEAD & SCALP: normocephalic and atraumatic Neck/C-Spine: COMMON NORMALS: full ROM and supple Chest: COMMONS NORMALS: normal inspection of the chest Resp: COMMON NORMALS: normal respiratory effort Cardio: COMMON NORMALS: regular rate, regular rhythm and No murmurs present (Cardio) RATE: regular rate RHYTHM: regular rhythm GI: COMMON NORMALS: Normal to inspection, nondistended, normoactive bowel sounds present, Soft to palpation, non-tender and no masses PALPATION: Yes Soft to palpation Extremity: COMMON NORMALS: normal to inspection and full ROM Neuro: COMMON NORMALS: patient oriented x3, moves all extremities and no focal motor deficits Psych: COMMON NORMALS: mental status grossly normal, Normal thought process present and cooperative THOUGHT PROCESS: Normal thought process present Skin: COMMON NORMALS: no rashes or lesions noted and no wounds GENERAL SKIN EXAM: no rashes or lesions noted Course Vital Signs: Vital signs: Vital Signs Temperature 98.2 F 08/18/23 15:21 Pulse Rate 87 08/18/23 16:03 Respiratory Rate 18 08/18/23 16:03 Blood Pressure 153/96 08/18/23 16:03 Pulse Oximetry 95 08/18/23 16:03 Oxygen Delivery Me thod Room Air 08/18/23 16:03 MDM - Arrhythmia/Palpitations Medical Decision Making Patient presents here with SVT he has been converted by EMS he has been normal sinus rhythm here asymptomatic he stable for discharge. Medical Records I reviewed the patient's medical records. No radiology studies performed this visit EKG Data EKG 1: I personally reviewed and interpreted this EKG as follows: EKG interpretation date: 08/18/23 EKG interpretation time: 15:22 Interpretation: nsr hr [address] or t wave abnormalities qrs 80 qtc 394 Discharge Plan Discharge Patient Disposition: Home Clinical Impression: SVT (supraventricular tachycardia) Condition: Stable Prescriptions: No Action fluticasone propion-salmeterol [Advair Diskus] 500-50 mcg/dose blister with device 1 inh inhalation BID Qty: 60 6RF levalbuterol tartrate [Xopenex HFA] 45 mcg/actuation HFA aerosol inhaler 2 inh inhalation Q6H Qty: 15 6RF carvedilol 6.25 mg tablet 3.125 mg PO BID Qty: 60 0RF Rx Instructions: must administer with a meal/food Xopenex 1.25 mg/3 mL Solution For Nebulization 1.25 mg INHALATION Q6H PRN (Reason: Bronchospasm) Ventolin HFA 90 mcg/actuation HFA aerosol inhaler 2 puff INHALATION Q6H PRN (Reason: Shortness Of Breath) albuterol sulfate 2.5 mg /3 mL (0.083 %) Solution For Nebulization 2.5 mg INHALATION Q6H PRN (Reason: Shortness Of Breath) Discharge Orders: Discharge ED (Routine); Ordered 08/18/23 Ordered By: Kwesi Kaur Referrals: Eh Galvan MD [Physician] - 1-3 days Dorian Savage FNP [Primary Care Provider] - Discharge Diet: Advance as tolerated Discharge Activity: Resume usual activity Patient Instructions: Supraventricular Tachycardia (ED) Coding Level of Care Code ED Anode Machine Operator for Grace Zuñiga
[2023-08-18 16:03] VITALS: BP 153/96; PULSE 87; RESP 18; O2SAT 95
[2023-08-18 16:48] VITALS: BP 135/90; PULSE 83; RESP 16; O2SAT 96
--- NOTE | 2023-08-18 18:08 | PC.SOCIAL ---
Cardiology Referral Referral message to cardiology at this time. Clinic to contact patient with appt date/time.
== END 2023-08-18 16:49 | disposition home or self-care (01) ==
PROVIDERS: Emergency Provider Emergency Medicine; PCP Nurse Practitioner Family
DX: I47.1 Supraventricular tachycardia (principal); Z87.891 Personal history of nicotine dependence
CPT/HCPCS: 93005; 99283

== ENCOUNTER 2023-09-07 10:48 | Outpatient (CLI) | payer MEDICAID, SELFPAY ==
--- NOTE | 2023-09-07 11:00 | MR_ITS ---
WS: [id number] MRI CERVICAL SPINE NONCONTRAST TECHNIQUE: Sagittal T1, T2 and STIR imaging. Axial T2, gradient, and fiesta imaging. CLINICAL INFORMATION: M54.2 - Cervicalgia COMPARISON: None. FINDINGS: Straightening of the normal cervical lordosis. Mild spondylitic changes. Disc space narrowing worse a t C5-6. Slight retrolisthesis C5 on C6. Cord signal is normal. C2-C3: Mild facet arthropathy. Spinal canal and foramen are patent. C3-C4: Mild disc osteophytic ridging. Mild RIGHT and no significant LEFT foraminal narrowing. Moderat e facet arthropathy. Spinal canal is patent. C4-C5: Mild disc bulge and osteophytic ridging. Moderate facet arthropathy. Mild RIGHT and no signifi cant LEFT foraminal narrowing. Spinal canal is patent. C5-C6: Disc osteophyte complex with endplate ridging. Mild central canal stenosis. Slight contact of the cervical cord. Mild facet arthropathy. Moderate LEFT and moderate RIGHT bony foraminal narrowing. C6-C7: Mild disc osteophytic ridging. Mild facet arthropathy. Mild RIGHT greater than LEFT bony rodrigo inal narrowing. C7-T1: Slight anterolisthesis. Mild disc osteophytic ridging. Mild LEFT and no significant RIGHT fora cody narrowing. Visualized brain stem structures: Normal. Prevertebral soft tissues: Normal. IMPRESSION: 1. Straightening the normal cervical doses. Mild spondylitic changes. 2. Disc bulging worse at C5-C6 with slight retrolisthesis and mild central canal stenosis. Slight co ntact of the cervical cord. 3. Moderate LEFT greater than RIGHT C5-C6 bony foraminal narrowing. 4. Mild RIGHT C4-5, bilateral C6-7, and LEFT C7-T1 bony foraminal narrowing.
== END 2023-09-07 10:49 | disposition home or self-care (01) ==
LOC: RAD 10:49
PROVIDERS: PCP Nurse Practitioner Family; Visit Provider Anesthesiology Pain Medicine
DX: M47.812 Spondylosis without myelopathy or radiculopathy, cervical region (principal); M50.322 Other cervical disc degeneration at C5-C6 level; M48.02 Spinal stenosis, cervical region
CPT/HCPCS: 72141

== ENCOUNTER 2023-10-28 14:30 | Outpatient (CLI) | payer MEDICAID, SELFPAY | END 2023-10-28 14:31 | disposition home or self-care (01) | LOC: SLEEP 11-02 09:46 | PROVIDERS: PCP Nurse Practitioner Family; Visit Provider Internal Medicine Pulmonary Disease | DX: G47.33 Obstructive sleep apnea (adult) (pediatric) (principal); G47.36 Sleep related hypoventilation in conditions classified elsewhere | CPT/HCPCS: G0399 ==

== ENCOUNTER 2024-01-05 06:00 | Outpatient (RCR) | payer MEDICAID, SELFPAY | END 2024-01-28 23:59 | disposition home or self-care (01) | LOC: WPT 06:00 | PROVIDERS: PCP Nurse Practitioner Family; Visit Provider Anesthesiology Pain Medicine | DX: M54.2 Cervicalgia (principal); G89.29 Other chronic pain | CPT/HCPCS: 97110; 97112; 97140; 97161; 97530 ==

== ENCOUNTER 2024-01-06 12:46 | Outpatient (CLI) | payer MEDICAID, SELFPAY ==
[2024-01-06 13:04] VITALS: PULSE 88; RESP 18; O2SAT 98
[2024-01-06] MEDS: albuterol 2.5 mg/3 mL Neb INHALATION (13:04)
[2024-01-06 13:08] VITALS: PULSE 89
== END 2024-01-06 12:47 | disposition home or self-care (01) ==
PROVIDERS: PCP Nurse Practitioner Family; Visit Provider Internal Medicine Pulmonary Disease
DX: J44.9 Chronic obstructive pulmonary disease, unspecified (principal); R94.2 Abnormal results of pulmonary function studies
CPT/HCPCS: 94060; 94618; 94726; 94729

== ENCOUNTER 2024-01-29 06:00 | Outpatient (RCR) | payer MEDICAID, SELFPAY | END 2024-02-28 23:59 | disposition home or self-care (01) | LOC: WPT 06:00 | PROVIDERS: PCP Nurse Practitioner Family; Visit Provider Anesthesiology Pain Medicine | DX: M54.2 Cervicalgia (principal); G89.29 Other chronic pain | CPT/HCPCS: 97110; 97140; 97530 ==

== ENCOUNTER 2024-02-08 20:00 | Outpatient (CLI) | payer MEDICAID, SELFPAY | END 2024-02-08 20:01 | disposition home or self-care (01) | LOC: SLEEP 02-09 04:39 | PROVIDERS: PCP Nurse Practitioner Family; Visit Provider Internal Medicine Pulmonary Disease | DX: G47.33 Obstructive sleep apnea (adult) (pediatric) (principal) | CPT/HCPCS: 95811 ==

== ENCOUNTER 2024-03-17 08:00 | Outpatient (CLI) | payer MEDICAID, SELFPAY ==
--- NOTE | 2024-03-17 08:30 | USCV_ITS ---
Vic Lebron Age: 58 Gender: M : 1965 Exam Date: 03/17/2024 08:48 Ordering Phys: Huseyin Richey M.D ([email or web address]) Technologist: Exam Location: [facility] [place] Indication: chest pain BP: 110 / 80 HR: 72 Rhythm: Sinus Technical Quality: Adequate MEASUREMENTS (Male / Female) Normal Values 2D ECHO LV Diastolic Diameter PLAX 4.3 cm 4.2 - 5.9 / 3.9 - 5.3 cm IVS Diastolic Thickness 1.1 cm 0.6 - 1.0 / 0.6 - 0.9 cm IVS Systolic Thickness 1.2 cm LVPW Diastolic Thickness 0.9 cm 0.6 - 1.0 / 0.6 - 0.9 cm LVPW Systolic Thickness 1.4 cm LV Ejection Fraction 2D Teich 53.4 % LV Ejection Fraction MOD 2C 53.8 % LV Ejection Fraction 2C AL 54.7 % RA Systolic Volume 4C AL 43.9 ml RA Systolic Volume 4C MOD 43.4 ml IVC Diameter 2.9 cm M-MODE LA Ao Ratio MM 1.1 AV Cusp Separation MM 2.4 cm DOPPLER LVOT Peak Velocity 155.0 cm/s MV Peak Velocity 115.0 cm/s MV Area PHT 4.1 cm squared Mitral E to A Ratio 1.1 TV Peak Velocity 207.5 cm/s TR Peak Velocity 268.0 cm/s TR Peak Gradient 28.7 mmHg TV Peak E Velocity 94.0 cm/s Right Atrial Pressure 3.0 mmHg Pulmonary Artery Systolic Pressu 31.7 mmHg PV Peak Velocity 120.0 cm/s FINDINGS Left Ventricle Left ventricle is normal in size. LV systolic function is normal with EF of 50 to 55%. No regional wall motion abnormalities are seen. Right Ventricle Normal in size and function. Right Atrium Normal in size. Left Atrium Normal in size. Mitral Valve Structurally normal mitral valve. Mild mitral regurgitation. Aortic Valve Structurally normal aortic valve. No significant stenosis or regurgitation. Tricuspid Valve Mild tricuspid regurgitation. Pulmonary artery systolic pressure is normal. Pulmonic Valve Trace pulmonic regurgitation. Pericardium Normal Aorta Normal in size. IVC Appears to be dilated CONCLUSIONS LV systolic function is normal with EF of 50 to 55%. Mild mitral regurgitation Mild tricuspid regurgitation Trace pulmonic regurgitation IVC appears to be dilated. Compared to prior echocardiogram from 2022, LV systolic function has improved signficantly and is normal now. Huseyin Richey MD (Electronically Signed) Final Date: 02 Apr 2024 20:22 S
== END 2024-03-17 08:01 | disposition home or self-care (01) ==
LOC: RAD 08:00
PROVIDERS: PCP Nurse Practitioner Family; Visit Provider Internal Medicine
DX: R07.9 Chest pain, unspecified (principal); R06.02 Shortness of breath; I34.0 Nonrheumatic mitral (valve) insufficiency; I07.1 Rheumatic tricuspid insufficiency
CPT/HCPCS: 93306

== ENCOUNTER 2024-04-04 17:00 | Emergency (ER) | payer MEDICAID, SELFPAY ==
[2024-04-04 17:06] VITALS: BP 128/83; PULSE 72; RESP 18; TEMP 36.6; O2SAT 97; BMI 30.2
--- NOTE | 2024-04-04 17:17 | XRR_ITS ---
PROCEDURE INFORMATION: Exam: XR Chest Exam date and time: 04/04/2024 5:20 PM Age: 58 years old Clinical indication: Other: High blood pressure; Additional info: Chest pain TECHNIQUE: Imaging protocol: Radiologic exam of the chest. Views: 1 view. COMPARISON: CT chest con [id number] 08/06/2023 1:31 PM FINDINGS: Lungs: Unremarkable. No consolidation. Pleural spaces: Unremarkable. No pleural effusion. No pneumothorax. Heart/Mediastinum: Unremarkable. No cardiomegaly. Bones/joints: Unremarkable. XR/XR chest 1V portable [id number] IMPRESSION: No acute findings.
--- NOTE | 2024-04-04 17:17 | ECG_ITS ---
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 Measurements Intervals [place] Rate: 62 P: 52 [place]: 175 QRS: 10 QRSD: 93 T: 19 QT: 396 QTc: 405 Interpretive Statements SINUS RHYTHM Compared to ECG 08/18/2023 15:22:36 No significant changes Electronically Signed On 04-04-2024 23:21:25 CDT by Huseyin Ricehy M.D. [email or web address] county general [email or web address].[email or web address]/store/[id number]
--- NOTE | 2024-04-04 17:43 | ED_ITS ---
Documented by User: David Mcintosh DO 04/05/24 06:12 HPI - Weakness 2 General: Chief complaint: Weakness Stated complaint: bp issuse Time Seen by Provider: 04/04/24 17:16 Source: patient Mode of arrival: ambulatory History of Present Illness: 8-year-old male presents to the emergenc y room with complaints of chest pain and dizziness. He has intermittently had these he is also most blood pressures being low he gauges his blood pressure and will sometimes hold his lisinopril. He was previously on losartan but I changed lisinopril 5 mg daily because his blood pressure had been low. Today he was in the [place] lightheaded and dizzy and felt like his blood pressure was too low. Reports blood pressure from home 148/55. On arrival here his blood pressure is 128/83. MD Complaint: generalized weakness Associated symptoms: Reports chest pain; Denies chills, confusion, melena, decreased appetite, diaphoresis, dysuria, easy bruising, fever(s), headache(s), myalgias, nausea, rash, short of breath, syncope or vomiting Review of Systems 2 Const: Denies: fever(s), chills or diaphoresis Card: Reports: chest pain; Denies: palpitations, irregular heart rhythm, edema, swelling of feet/ankles or syncope Resp: Denies: dyspnea GI: Denies: abdominal pain, nausea, vomiting or melena : Denies: dysuria, urinary frequency or urinary urgency Musc: Denies: neck pain or back pain Skin/Breast: Denies: rash Neuro: Denies: headache(s) or confusion Kenneth/Lymph: Denies: easy bruising PFSH ED 2 PFSH: Medical History Ex-cigarette smoker Multiorgan failure NSTEMI (non-ST elevated myocardial infarction) Hypoalbuminemia Ascending cholangitis Acute cholecystitis Hyperglycemia Aspiration pneumonitis Aspiration pneumonia Asthma No pertinent past medical history Asthma Surgical History No pertinent past surgical history Family History Father CAD (coronary artery disease), Onset Age: 60 Cancer, Onset Age: 60 prostate Diabetes Lung disease asthma Prostate cancer Mother Diabetes Hypertension Lung disease Stroke Denies family history of Chronic kidney disease (CKD) Social History Smoking and tobacco/nicotine status: former use of tobacco/nicotine Quit status (tobacco/nicotine): has quit using Year quit tobacco: 2006 Alcohol intake: never Substance/Drug Use: never Adopted: No Caregiver/support person: No Lives independently: No Household members: spouse Marital status: service: No Current occupational status: employed Sexually active: Yes Do you think of yourself as: Straight/Heterosexual Current gender identity: Male Physical Exam 2 Const: COMMON NORMALS: no acute distress GENERAL APPEARANCE: cooperative and comfortable ORIENTATION/CONSCIOUSNESS: Yes awake, Yes oriented to person, Yes oriented to place and Yes oriented to time HENMT: COMMON NORMALS: normocephalic, atraumatic and hearing grossly normal bilaterally HEAD & SCALP: normocephalic and atraumatic Resp: COMMON NORMALS: normal respiratory effort, No retractions, No use of accessory muscles and clear to auscultation bilaterally AUSCULTATION: clear to auscultation bilaterally Cardio: COMMON NORMALS: regular rate, regular rhythm and No murmurs present (Cardio) RATE: regular rate RHYTHM: regular rhythm GI: COMMON NORMALS: Soft to palpation and No hepatosplenomegaly present A USCULTATION: Yes normoactive bowel sounds PALPATION: Yes Soft to palpation, No Tenderness to palpation present (GI), No Guarding due to palpation present (GI) and Yes No hepatosplenomegaly present Extremity: COMMON NORMALS: normal to inspection, capillary refill normal, no clubbing, cyanosis or edema, no calf tenderness and no pedal edema Neuro: SENSORIUM/ORIENTATION: Yes oriented to person, Yes oriented to place and Yes oriented to time Skin: COMMON NORMALS: no rashes or lesions noted GENERAL SKIN EXAM: no rashes or lesions noted Course 2 Vital Signs: Vital signs: Vital Signs Temperature 97.9 F 04/04/24 17:06 Pulse Rate 57 L 04/04/24 20:17 Respiratory Rate 16 04/04/24 20:17 Blood Pressure 100/64 04/04/24 20:17 Pulse Oximetry 95 04/04/24 20:17 Oxygen Delivery Me thod Room Air 04/04/24 18:30 MDM - Weakness Medical Decision Making Care signed out to Dr. Rodriguez at change of shift. See final notes for diagnosis and disposition. Lab Data 04/04/24 17:32 04/04/24 17:32 Radiology Impressions Chest X-Ray 04/04/24 17:17 IMPRESSION: No acute findings. Laboratory Results WBC 5.33 10^3/uL (3.29-11.43) 04/04/24 17:32 RBC 4.57 10^6/uL (3.85-5.65) 04/04/24 17:32 Hgb 14.20 g/dL (11.27-16.99) 04/04/24 17:32 Hct 40.6 % (37-53) 04/04/24 17:32 MCV 88.8 fl (82-101) 04/04/24 17:32 MCH 31.1 pg (27-33) 04/04/24 17:32 MCHC 35.0 g/dL (30-55) 04/04/24 17:32 RDW 12.9 % (12.1-15.1) 04/04/24 17:32 Plt Count 273 10^3/cmm (157-399) 04/04/24 17:32 MPV 8.8 fL (7.4-10.4) 04/04/24 17:32 Neut % (Auto) 58.5 % 04/04/24 17:32 Lymph % (Auto) 28.3 % 04/04/24 17:32 [place] % (Auto) 7.7 % 04/04/24 17:32 Eos % (Auto) 4.3 % 04/04/24 17:32 Baso % (Auto) 0.8 % 04/04/24 17:32 Neut # (Auto) 3.12 10^3/uL (1.8-7.7) 04/04/24 17:32 Lymph # (Auto) 1.5 10^3/uL (0.8-4.8) 04/04/24 17:32 [place] # (Auto) 0.4 10^3/uL (0.2-0.9) 04/04/24 17:32 Eos # (Auto) 0.2 10^3/uL (0.0-0.8) 04/04/24 17:32 Baso # (Auto) 0.0 10^3/uL (0.0-0.1) 04/04/24 17:32 Nucleated RBC % (auto) 0 % 04/04/24 17:32 Nucleated RBCs # 0.0 /100WBC 04/04/24 17:32 Sodium 137 mmol/L (136-145) 04/04/24 17:32 Potassium 4.0 mmol/L (3.5-5.1) 04/04/24 17:32 Chloride 104 mmol/L (98-107) 04/04/24 17:32 Carbon Dioxide 23 mmol/L (22-29) 04/04/24 17:32 Anion Gap 14.0 (5-19) 04/04/24 17:32 BUN 18 mg/dL (6-20) 04/04/24 17:32 Creatinine 0.7 mg/dL (0.7-1.2) 04/04/24 17:32 GFR Calculation 116.7 mL/min (90-130) 04/04/24 17:32 Glucose 106 mg/dL (65-115) 04/04/24 17:32 Calculated Osmolality 286 mOsm/kg (285-295) 04/04/24 17:32 Calcium 8.6 mg/dL (8.5-10.5) 04/04/24 17:32 Total Bilirubin 0.6 mg/dL (0.15-1.2) 04/04/24 17:32 AST 15 U/L (0-40) 04/04/24 17:32 ALT 20 U/L (0-41) 04/04/24 17:32 Alkaline Phosphatase 70 U/L (40-130) 04/04/24 17:32 Troponin T Baseline 11 ng/L (0-15) 04/04/24 17:32 Troponin T 120 Minute 11.26 ng/L (0-15) 04/04/24 19:16 Delta Troponin T 0.26 ABS# (0-10) 04/04/24 19:16 Total Protein 7.0 g/dL (6.6-8.7) 04/04/24 17:32 Albumin 4.4 g/dL (3.5-5.2) 04/04/24 17:32 Globulin 2.6 g/dL (1.3-4.6) 04/04/24 17:32 Discharge Plan Discharge Patient Disposition: Home Clinical Impression: Chest pain, non-cardiac Condition: Stable Prescriptions: No Action fluticasone propion-salmeterol [Advair Diskus] 500-50 mcg/dose blister with device 1 inh inhalation BID Qty: 60 6RF diltiazem HCl 120 mg capsule,extended release 12 hr 120 mg PO BID Qty: 180 3RF celecoxib [Celebrex] 100 mg capsule 200 mg PO BID Qty: 180 3RF cyclobenzaprine 5 mg tablet 5 mg PO TID PRN (Reason: muscle spasm) Qty: 90 2RF lisinopril 5 mg tablet 5 mg PO DAILY Qty: 90 1RF levalbuterol HCl [Xopenex] 1.25 mg/3 mL Solution For Nebulization 1.25 mg INHALATION Q6H PRN (Reason: Bronchospasm) Zyrtec 10 mg Tablet 10 mg PO QAM Aspir-81 81 mg Tablet,Delayed Release (Dr/Ec) 243 mg PO .ONE TIME DOSE Xopenex HFA 45 mcg/actuation HFA aerosol inhaler 2 inh inhalation Q6H PRN (Reason: Shortness Of Breath) Discharge Orders: Discharge ED (Routine); Ordered 04/04/24 Ordered By: Elena Rodriguez Referrals: Dorian Savage FNP [Primary Care Provider] - 4-7 days Discharge Diet: Usual diet Discharge Activity: Resume usual activity Patient Instructions: Chest Pain (ED) Activity Restrictions/Additional Instructions: Thank you for choosing [facility] for your healthcare needs today. Please realize this is an emergency room and that we are providing you with a medical screening exam and this may not be complete and all inclusive of all the testing and or work up that you may need to determine your ailment or severity of your illness. You have been screened and evaluated and felt safe for discharge. Health conditions do change or evolve sometimes and as such it is important that you follow up with your Primary Doctor to be re checked, 3-5 days is a general good time frame for follow up. You are always welcome to return to the ED for re assessment if your symptoms are worsening or you have new concerns Coding Level of Care Code ED [employer] for Chg José Antoniod Documented by User: Elena Rodriguez MD 04/04/24 19:47 HPI - Weakness 2 General: Chief complaint: Weakness Stated complaint: bp issuse Time Seen by Provider: 04/04/24 17:16 PFSH ED 2 PFSH: Medical History Ex-cigarette smoker Multiorgan failure NSTEMI (non-ST elevated myocardial infarction) Hypoalbuminemia Ascending cholangitis Acute cholecystitis Hyperglycemia Aspiration pneumonitis Aspiration pneumonia Asthma No pertinent past medical history Asthma Surgical History No pertinent past surgical history Family History Father CAD (coronary artery disease), Onset Age: 60 Cancer, Onset Age: 60 prostate Diabetes Lung disease asthma Prostate cancer Mother Diabetes Hypertension Lung disease Stroke Denies family history of Chronic kidney disease (CKD) Social History Smoking and tobacco/nicotine status: former use of tobacco/nicotine Quit status (tobacco/nicotine): has quit using Year quit tobacco: 2006 Alcohol intake: never Substance/Drug Use: never Adopted: No Caregiver/support person: No Lives independently: No Household members: spouse Marital status: service: No Current occupational status: employed Sexually active: Yes Do you think of yourself as: Straight/Heterosexual Current gender identity: Male Course 2 Vital Signs: Vital signs: Vital Signs Temperature 97.9 F 04/04/24 17:06 Pulse Rate 57 L 04/04/24 20:17 Respiratory Rate 16 04/04/24 20:17 Blood Pressure 100/64 04/04/24 20:17 Pulse Oximetry 95 04/04/24 20:17 Oxygen Delivery Me thod Room Air 04/04/24 18:30 MDM - Weakness Medical Decision Making Care signed out to Dr. Rodriguez at change of shift. See final notes for diagnosis and disposition. Patient's blood pressure has remained fairly normal. Cardiac markers are normal. EKG remains nonischemic. Assessment and plan: Chest pain, noncardiac - Discharged home - Discussed findings and plan with patient. Answered any questions. - All laboratory values were reviewed and interpreted personally by myself, the ER physician - All imaging was reviewed and interpreted personally by myself, the ER physician. - Evaluation and treatment of this problem were appropriate in the emergency setting Lab Data 04/04/24 17:32 04/04/24 17:32 Radiology Impressions Chest X-Ray 04/04/24 17:17 IMPRESSION: No acute findings. Laboratory Results WBC 5.33 10^3/uL (3.29-11.43) 04/04/24 17:32 RBC 4.57 10^6/uL (3.85-5.65) 04/04/24 17:32 Hgb 14.20 g/dL (11.27-16.99) 04/04/24 17:32 Hct 40.6 % (37-53) 04/04/24 17:32 MCV 88.8 fl (82-101) 04/04/24 17:32 MCH 31.1 pg (27-33) 04/04/24 17:32 MCHC 35.0 g/dL (30-55) 04/04/24 17:32 RDW 12.9 % (12.1-15.1) 04/04/24 17:32 Plt Count 273 10^3/cmm (157-399) 04/04/24 17:32 MPV 8.8 fL (7.4-10.4) 04/04/24 17:32 Neut % (Auto) 58.5 % 04/04/24 17:32 Lymph % (Auto) 28.3 % 04/04/24 17:32 [place] % (Auto) 7.7 % 04/04/24 17:32 Eos % (Auto) 4.3 % 04/04/24 17:32 Baso % (Auto) 0.8 % 04/04/24 17:32 Neut # (Auto) 3.12 10^3/uL (1.8-7.7) 04/04/24 17:32 Lymph # (Auto) 1.5 10^3/uL (0.8-4.8) 04/04/24 17:32 [place] # (Auto) 0.4 10^3/uL (0.2-0.9) 04/04/24 17:32 Eos # (Auto) 0.2 10^3/uL (0.0-0.8) 04/04/24 17:32 Baso # (Auto) 0.0 10^3/uL (0.0-0.1) 04/04/24 17:32 Nucleated RBC % (auto) 0 % 04/04/24 17:32 Nucleated RBCs # 0.0 /100WBC 04/04/24 17:32 Sodium 137 mmol/L (136-145) 04/04/24 17:32 Potassium 4.0 mmol/L (3.5-5.1) 04/04/24 17:32 Chloride 104 mmol/L (98-107) 04/04/24 17:32 Carbon Dioxide 23 mmol/L (22-29) 04/04/24 17:32 Anion Gap 14.0 (5-19) 04/04/24 17:32 BUN 18 mg/dL (6-20) 04/04/24 17:32 Creatinine 0.7 mg/dL (0.7-1.2) 04/04/24 17:32 GFR Calculation 116.7 mL/min (90-130) 04/04/24 17:32 Glucose 106 mg/dL (65-115) 04/04/24 17:32 Calculated Osmolality 286 mOsm/kg (285-295) 04/04/24 17:32 Calcium 8.6 mg/dL (8.5-10.5) 04/04/24 17:32 Total Bilirubin 0.6 mg/dL (0.15-1.2) 04/04/24 17:32 AST 15 U/L (0-40) 04/04/24 17:32 ALT 20 U/L (0-41) 04/04/24 17:32 Alkaline Phosphatase 70 U/L (40-130) 04/04/24 17:32 Troponin T Baseline 11 ng/L (0-15) 04/04/24 17:32 Troponin T 120 Minute 11.26 ng/L (0-15) 04/04/24 19:16 Delta Troponin T 0.26 ABS# (0-10) 04/04/24 19:16 Total Protein 7.0 g/dL (6.6-8.7) 04/04/24 17:32 Albumin 4.4 g/dL (3.5-5.2) 04/04/24 17:32 Globulin 2.6 g/dL (1.3-4.6) 04/04/24 17:32 All radiology interpretation(s) finalized by discharge Discharge Plan Discharge Patient Disposition: Home Clinical Impression: Chest pain, non-cardiac Condition: Stable Prescriptions: No Action fluticasone propion-salmeterol [Advair Diskus] 500-50 mcg/dose blister with device 1 inh inhalation BID Qty: 60 6RF diltiazem HCl 120 mg capsule,extended release 12 hr 120 mg PO BID Qty: 180 3RF celecoxib [Celebrex] 100 mg capsule 200 mg PO BID Qty: 180 3RF cyclobenzaprine 5 mg tablet 5 mg PO TID PRN (Reason: muscle spasm) Qty: 90 2RF lisinopril 5 mg tablet 5 mg PO DAILY Qty: 90 1RF levalbuterol HCl [Xopenex] 1.25 mg/3 mL Solution For Nebulization 1.25 mg INHALATION Q6H PRN (Reason: Bronchospasm) Zyrtec 10 mg Tablet 10 mg PO QAM Aspir-81 81 mg Tablet,Delayed Release (Dr/Ec) 243 mg PO .ONE TIME DOSE Xopenex HFA 45 mcg/actuation HFA aerosol inhaler 2 inh inhalation Q6H PRN (Reason: Shortness Of Breath) Discharge Orders: Discharge ED (Routine); Ordered 04/04/24 Ordered By: Elena Rodriguez Referrals: Dorian Savage, AIR ANALYSIS TECHNICIAN [Primary Care Provider] - 4-7 days Discharge Diet: Usual diet Discharge Activity: Resume usual activity Patient Instructions: Chest Pain (ED) Activity Restrictions/Additional Instructions: Thank you for choosing [facility] for your healthcare needs today. Please realize this is an emergency room and that we are providing you with a medical screening exam and this may not be complete and all inclusive of all the testing and or work up that you may need to determine your ailment or severity of your illness. You have been screened and evaluated and felt safe for discharge. Health conditions do change or evolve sometimes and as such it is important that you follow up with your Primary Doctor to be re checked, 3-5 days is a general good time frame for follow up. You are always welcome to return to the ED for re assessment if your symptoms are worsening or you have new concerns Coding Level of Care Code ED [employer] for Grace Zuñiga
[2024-04-04 17:56] LABS: Basophils % 0.8 %; Eosinophils # 0.2 10^3/uL (0.0-0.8); Eosinophils % 4.3 %; Hematocrit 40.6 % (37-53); Lymphocytes # 1.5 10^3/uL (0.8-4.8); Lymphocytes % 28.3 %; Mean Corpuscular Hemoglobin 31.1 pg (27-33); Mean Corpuscular Volume 88.8 fl (82-101); Mean Platelet Volume 8.8 fL (7.4-10.4); Monocytes # 0.4 10^3/uL (0.2-0.9); Monocytes % 7.7 %; Neutrophils # 3.12 10^3/uL (1.8-7.7); Neutrophils % 58.5 %; Nucleated Red Blood Cells % 0 %; Platelet Count 273 10^3/cmm (157-399); Red Blood Count 4.57 10^6/uL (3.85-5.65); Red Cell Distribution Width 12.9 % (12.1-15.1); White Blood Count 5.33 10^3/uL (3.29-11.43)
[2024-04-04] MEDS: aspirin 81 mg Chew Tablet 324 MG PO (17:56)
[2024-04-04 18:00] VITALS: BP 113/73; PULSE 70; O2SAT 95
[2024-04-04 18:26] LABS: Troponin(5th) Baseline 11 ng/L (0-15)
[2024-04-04 18:30] VITALS: BP 105/63; PULSE 61; O2SAT 92
[2024-04-04 18:39] LABS: Alanine Aminotransferase 20 U/L (0-41); Albumin Level 4.4 g/dL (3.5-5.2); Alkaline Phosphatase 70 U/L (40-130); Aspartate Amino Transferase 15 U/L (0-40); Blood Urea Nitrogen 18 mg/dL (6-20); Calcium 8.6 mg/dL (8.5-10.5); Carbon Dioxide 23 mmol/L (22-29); Chloride 104 mmol/L (98-107); Creatinine Clr Calc Pharmacy 132.6907; Globulin 2.6 g/dL (1.3-4.6); Glomerular Filtration Rate 116.7 mL/min (90-130); Glucose 106 mg/dL (65-115); Osmolality Calculated 286 mOsm/kg (285-295); Sodium 137 mmol/L (136-145); Total Bilirubin 0.6 mg/dL (0.15-1.2)
--- NOTE | 2024-04-04 19:18 | ECG_ITS ---
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 Measurements Intervals [place] Rate: 58 P: 10 MD: 136 QRS: 18 QRSD: 97 T: 18 QT: 404 QTc: 398 Interpretive Statements SINUS BRADYCARDIA Compared to ECG 04/04/2024 17:09:00 Sinus rhythm no longer present Electronically Signed On 04-04-2024 23:23:47 CDT by Huseyin Richey M.D. [id number]
[2024-04-04 19:38] LABS: Troponin 5 2HR 11.26 ng/L (0-15); Troponin 5 2HR Delta 0.26 ABS# (0-10)
[2024-04-04 20:17] VITALS: BP 100/64; PULSE 57; RESP 16; O2SAT 95
== END 2024-04-04 20:21 | disposition home or self-care (01) ==
PROVIDERS: Family Medicine; Emergency Provider Emergency Medicine; PCP Nurse Practitioner Family
DX: R07.89 Other chest pain (principal); Z87.891 Personal history of nicotine dependence; I25.2 Old myocardial infarction
CPT/HCPCS: 71045; 80053; 84484; 85025; 93005; 99285

== ENCOUNTER → 2024-07-06 11:41 | Outpatient (BNVA) | payer MEDICAID, SELFPAY | PROVIDERS: PCP Nurse Practitioner Family; Referring Provider Nurse Practitioner Family; Visit Provider Psychiatry & Neurology Neurology | DX: I10 Essential (primary) hypertension (principal); R51.9 Headache, unspecified; G89.29 Other chronic pain; G93.9 Disorder of brain, unspecified; G45.9 Transient cerebral ischemic attack, unspecified; G47.30 Sleep apnea, unspecified | CPT/HCPCS: 36415; 82607; 82652; 82746; 83090; 83735; 83921; 84439; 84443; 84481 ==

== ENCOUNTER 2024-08-11 13:00 | Outpatient (CLI) | payer MEDICAID, SELFPAY ==
--- NOTE | 2024-08-11 13:00 | MR_ITS ---
WS: [id number] MRI BRAIN WITH AND WITHOUT CONTRAST HISTORY: R51.9 - Headache, unspecified COMPARISON: None available. TECHNIQUE: Multiplanar imaging performed through the brain with MultiHance 20 ml's IV. No acute infarcts are seen. Ace-white matter differentiation is well preserved. No susceptibility artifacts or prior lacunar infarcts. Normal hippocampal formations. Ventricles and extra-axial spaces are normal. Clivus and pituitary gland are normal. Visualized posterior fossa and brainstem are also normal. Postcontrast images are negative for masses or vascular malformations. Dural venous sinuses are normal. Paranasal sinuses: Well aerated with no significant disease. Mastoid air cells: Normal. Calvarium and scalp: Normal. MR/MR head wo/w con [id number] IMPRESSION: 1. No acute infarct. 2. No significant volume loss or atrophy. 3. No significant small vessel ischemic disease. 4. No hydrocephalus. 5. No mass.
--- NOTE | 2024-08-11 13:45 | MR_ITS ---
WS: [id number] MRA ANGIOGRAPHY [place] HISTORY: R51.9 - Headache, unspecified COMPARISON: None available. TECHNIQUE: 3-D MR angiography is performed of the [place]. All images are reviewed including source images. Distal vertebral and the basilar artery are normal. There is a very tiny outpouching from the proxima l LEFT posterior cerebral artery. This is best seen on image 67 of series 301. This could potentially represent a very tiny 2 to 3 mm aneurysm. The posterior communicating artery is very difficult to id entify but this does not appear to be contiguous. Intracranial portion of the internal carotid arteries are normal course and caliber. No significant a therosclerosis, stenosis or aneurysm identified. Middle and anterior cerebral arteries are both paten t with no significant disease. Anterior communicating artery is also normal. MR/MR angio head wo con [id number] IMPRESSION: 1. No significant stenosis within the [place]. 2. Indeterminate but suspicious for 2 to 3 mm aneurysm from the anterior LEFT P1 segment. Consider 6-month follow-up MR angiogram [place].
== END 2024-08-11 13:03 | disposition home or self-care (01) ==
PROVIDERS: PCP Nurse Practitioner Family; Visit Provider Psychiatry & Neurology Neurology
DX: R51.9 Headache, unspecified (principal); G89.29 Other chronic pain; G93.9 Disorder of brain, unspecified; G47.30 Sleep apnea, unspecified; R93.89 Abnormal findings on diagnostic imaging of other specified body structures
CPT/HCPCS: 70544; 70553

== ENCOUNTER 2024-08-11 14:01 | Outpatient (CLI) | payer MEDICAID, SELFPAY ==
--- NOTE | 2024-08-11 13:45 | MR_ITS ---
WS: [id number] MRA CAROTID ARTERIES HISTORY: G47.30 - Sleep apnea, unspecified COMPARISON: None available. TECHNIQUE: MRA is performed with intravenous gadolinium. MIP and source images are reviewed. Right: Common cervical carotid artery is normal caliber. Internal and external carotid arteries are p atent. Left: Common cervical carotid arteries normal caliber. The internal and external carotid arteries are patent. Subclavian Arteries: No high-grade stenosis. Vertebral Arteries: Vertebral arteries are normal caliber. Codominant vertebral arteries. MR/MR angio neck w con* [id number] IMPRESSION: No significant cervical carotid artery stenosis. Patent bilateral vertebral arteries.
[2024-08-11] MEDS: gadobenate dimeglumine 20 mL vial IV (14:30)
== END 2024-08-11 14:02 | disposition home or self-care (01) ==
LOC: RAD 14:01
PROVIDERS: PCP Nurse Practitioner Family; Visit Provider Psychiatry & Neurology Neurology
DX: G47.30 Sleep apnea, unspecified (principal); R51.9 Headache, unspecified; G89.29 Other chronic pain; G93.9 Disorder of brain, unspecified
CPT/HCPCS: 70548

== ENCOUNTER → 2025-01-12 15:14 | Outpatient (BNVA) | payer MEDICAID, SELFPAY | PROVIDERS: PCP Nurse Practitioner Family; Visit Provider Nurse Practitioner Family | DX: R50.9 Fever, unspecified (principal) | CPT/HCPCS: 87400 ==

== ENCOUNTER → 2025-03-17 08:43 | Outpatient (BNVA) | payer MEDICAID, SELFPAY | PROVIDERS: PCP Nurse Practitioner Family; Visit Provider Nurse Practitioner Family | DX: I47.10 Supraventricular tachycardia, unspecified (principal); R00.1 Bradycardia, unspecified; R94.31 Abnormal electrocardiogram [ECG] [EKG] | CPT/HCPCS: 93005 ==